=== PATIENT | male | born 1940 | race Caucasian/White ===

== ENCOUNTER 2020-06-23 10:52 | Inpatient (IN) ==
[2020-06-23] MEDS ORDERED: ADENOSINE IV SOLN 3 MG/ML 2 ML VIAL IV STA ×2 (11:18→12:29)
[2020-06-23] MEDS ORDERED: SODIUM CHLORIDE 0.9% 1000ML 1,000 ML IV SCH ×2 (11:30→15:18)
[2020-06-23] MEDS ORDERED: SODIUM CHLORIDE 0.9% 500 ML IV SCH (11:30)
[2020-06-23 11:57] LABS: iSTAT Creatinine 1.6 mg/dl (0.6-1.3); iSTAT Hemoglobin 18.7 g/dl (14.0-18.0); iSTAT Ionized Calcium 1.04 mmol/l (1.12-1.32); iSTAT Potassium 4.9 mmol/L (3.3-5.0)
[2020-06-23 12:07] LABS: Hematocrit (blood only) 43.2 % (42-52); Hemoglobin 14.6 g/dL (14.0-18.0); Immature Granulocytes # (auto) 0.09 K/uL (0.00-0.02); Immature Granulocytes % (auto) 0.6 %; Lymphocytes # (auto) 0.87 K/uL (1.2-3.4); Lymphocytes % (auto) 5.4 %; Mean Corpuscular Hemoglobin 31.7 pg (25-34); Mean Corpuscular Hgb Conc 33.8 g/dL (32-36); Mean Corpuscular Volume 93.9 fL (80-100); Mean Platelet Volume 10.4 fL (7.4-10.4); Monocytes # (auto) 1.14 K/uL (0.11-0.59); Monocytes % (auto) 7.1 %; Neutrophils # (auto) 13.95 K/uL (1.4-6.5); Neutrophils % (auto) 86.9 %; Platelet Count 149 K/uL (130-400); RDW Coefficient of Variation 14.8 % (11.5-14.5); RDW Standard Deviation 50.5 fL (36.4-46.3); White Blood Count 16.05 K/uL (4.8-10.8)
[2020-06-23] MEDS ORDERED: dilTIAZem HCl 5 MG/ML 5 ML VIAL IV STA ×2 (12:26→13:08)
[2020-06-23 12:27] LABS: Alanine Aminotransferase 31 U/L (12-78); Albumin Globulin Ratio 0.9 (0.9-2); Albumin Level 3.2 gm/dl (3.4-5.0); Alkaline Phosphatase 76 U/L (45-117); Aspartate Aminotransferase 34 U/L (15-37); BUN Creatinine Ratio 29.5 (10-20); Bilirubin,Total 1.1 mg/dl (0.2-1); Blood Urea Nitrogen 51 mg/dl (7-18); Calcium 8.8 mg/dl (8.5-10.1); Carbon Dioxide 32 mmol/L (21-32); Chloride 91 mmol/L (98-107); Creatine Kinase 238 U/L (39-308); Est GFR (African American) 42.3; Est GFR (Non-African American) 36.5; Globulin 3.4 gm/dl (2.5-4.0); Glucose 137 mg/dl (70-99); Magnesium 2.6 mg/dl (1.8-2.4); Potassium 4.3 mmol/L (3.5-5.1); Sodium 129 mmol/L (136-145); Total Protein 6.6 gm/dl (6.4-8.2)
[2020-06-23] MEDS ORDERED: OPTIRAY 320 125ml IV ONE (12:30)
[2020-06-23 12:37] LABS: Troponin I 0.188 ng/ml (0-0.045)
--- NOTE | 2020-06-23 12:40 | CT Scan Report ---
CT head/brain wo con CLINICAL HISTORY: Acute change in mental status COMPARISON STUDY: No previous studies for comparison. TECHNIQUE: Axial CT of the brain is performed from the vertex to the skull base. IV contrast was not administered for this examination. A dose lowering technique was utilized adhering to the principles of ALARA. CT DOSE: FINDINGS: No intra or extra-axial mass lesions are visualized. There is no CT evidence of acute cortical infarc tion. There is no evidence of midline shift. There is no acute hemorrhage. No calvarial fractures ar e visualized. There are bilateral moderately extensive matter hypodensities likely on a small vessel basis. There is no evidence of pathologic ventricular dilatation. There is no evidence of acute sinusitis Droplets of cavernous sinus air are likely iatrogenic. IMPRESSION: No acute intracranial findings ACT 112: Negative or not required by law. Electronically signed by: Ismael Gregorio M.D. 06/23/2020 12:39 PM
--- NOTE | 2020-06-23 12:46 | CT Scan Report ---
CT angio neck with con CLINICAL HISTORY: stroke COMPARISON STUDY: No previous studies for comparison. TECHNIQUE: CT angiography was performed from the aortic arch to the skull base. MIP imaging was perfo rmed. The patient was scanned in a dynamic helical fashion during intravenous administration of cc of Optiray 320. A dose lowering technique was utilized adhering to the principles of ALARA. CT DOSE: Technique: CT angiogram of the carotid and vertebral arteries was obtained using intravenous contrast and 3-D reconstruction. NASCET criteria was utilized. Findings: There are foci of venous gas, likely iatrogenic. There is moderate bilateral common carotid intimal thickening. Both internal carotids are somewhat di minutive. There is no evidence for hemodynamically significant stenosis. There is no evidence of occl usion. There is no evidence of dissection. The left vertebral artery is dominant. There is a distal r ight vertebral artery stenosis. IMPRESSION: 1. No evidence of hemodynamically significant carotid stenosis 2. Dominant left vertebral artery. Distal right vertebral artery stenosis. ACT 112: Negative or not required by law. Electronically signed by: Ismael Gregorio M.D. 06/23/2020 12:45 PM
--- NOTE | 2020-06-23 12:46 | CT Scan Report ---
CTA ANGIOGRAPHY OF THE HEAD CLINICAL HISTORY: Stroke. Altered mental status. COMPARISON STUDY: No previous studies for comparison. TECHNIQUE: Helical axial images of the head were obtained following uneventful intravenous administr ation of 120 cc of Optiray 320. Sagittal and coronal reconstructions were viewed as well as maximal i ntensity projections on an independent 3-D workstation. Automated exposure control was utilized for the study. A dose lowering technique was utilized adhering to the principles of ALARA. CT DOSE: 1321.17 mGy.cm FINDINGS: No acute intracranial hemorrhage, midline shift or mass effect is present. Basal cisterns a re patent. There are no extra-axial collections. Ventricular system is unremarkable. White matter hyp odensities likely reflect small vessel disease. Incidental note is made of venous gas. The bilateral M1, M2, A1 and A2 segments are patent. There is mild plaque within the bilateral cavernous carotids w ithout stenosis. No intraluminal thrombus is identified. There is no central vessel occlusion. The le ft vertebral artery is dominant and patent. There is moderate to severe stenosis of the intracranial portion of the right vertebral artery. Exam is mildly compromised by suboptimal vascular opacificatio n. Basilar artery is patent. Bilateral posterior cerebral arteries are likely patent. There is no int racranial aneurysm. IMPRESSION: 1. No central vessel occlusion. 2. Dominant, patent left vertebral artery. 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 3. Exam mildly compromised by suboptimal opacification. ACT 112: Negative or not required by law. Electronically signed by: Emanuel Ocasio M.D. 06/23/2020 12:45 PM
[2020-06-23] MEDS ORDERED: PIPERACILLIN/TAZOBACTAM 4.5 GM/120 ML BAG IV ONE (13:01)
[2020-06-23] MEDS ORDERED: PIPERACILL/TAZOBAC CONSULT ACTIVE PRN (13:01)
--- NOTE | 2020-06-23 13:06 | XRay Report ---
XR chest 1V portable HISTORY: weakness COMPARISON: None. FINDINGS: The lungs are clear. Cardiac silhouette is normal in size. No pleural effusions. No pneumot horax. IMPRESSION: No acute process. ACT 112: Negative or not required by law. Electronically signed by: Stephen Brennan M.D. 06/23/2020 1:05 PM
[2020-06-23] MEDS ORDERED: STAT IV Infusion **Titration per Protocol STA ×2 (13:08→22:29)
[2020-06-23] MEDS ORDERED: dilTIAZem HCL 125 MG in DEXTROSE 5% 100 ML IV SCH (13:15)
[2020-06-23] MEDS ORDERED: SODIUM CHLORIDE 0.9% 1000ML 500 ML IV ONE ×2 (14:19→16:28)
[2020-06-23] MEDS ORDERED: SODIUM CHLORIDE 0.9% 1000ML 1,000 ML IV ONE (14:22)
[2020-06-23] MEDS ORDERED: DIGOXIN 500 MCG/2 ML AMP IV ONE (14:22)
--- NOTE | 2020-06-23 15:12 | History & Physical Report ---
Date of Service June 23, 2020 Assessment & Plan (1) SIRS (systemic inflammatory response syndrome): (2) Acute metabolic encephalopathy: (3) Atrial flutter with rapid ventricular response: This is a 79-year-old male who has an unknown past medical history he does not follow with regular PCP who presents to ED with POA/granddaughter secondary to change in mental status and weakness for unknown duration. In ED patient was found to be in a wide-complex tachycardia with heart rates in the 160s. Initial EKG appeared to be SVT; however rhythm was resistant to adenosine 6 mg and adenosine 12 mg. He received a diltiazem bolus and started on Cardizem drip without much improvement in heart rate. He did receive 500 mL IVF. He also received Zosyn for SIRS. Lab abnormalities notable for leukocytosis 16.05k, H&H 14.6 and 43.2, sodium 129, BUN 51, creatinine 1.72, glucose 137, lactic acid 3.[address] negative for acute abnormality. Chest x-ray negative for acute abnormality. Head neck CTA reveal moderate stenosis of distal right vertebral artery. In ED he was found to have right upper extremity weakness with right pronator drift but otherwise no facial asymmetry or dysarthria. admit to PCU Consult cardiology - spoke to Dr. Graham continue Diltiazem gtt, give dose of digoxin - spoke to pharmacy, based on pt weight recommendation is for 250mcg split in 2 doses start heparin gtt (current [id number] 2 - although unknown if patient has any other underlying co morbidities given does not follow with PCP) obtain echocardiogram blood culture/urine culture pending Meets SIRS criteria 2/2 to tachycardia, elevated wbc - received IV zosyn in ED Start Rocephin 2g daily and doxycycline until infection ruled out continue IVF 80cc/hr (4) Stroke-like symptom: pt with R pronator drift, mental status change, difficulty with fine motor movement RUE CT head no acute abn - CTA head/neck Moderate to severe stenosis of the distal right vertebral artery obtain MRI when medically able and when heart rate under better control consult neuro, PT/OT/ST Lipid panel/A1C in a.m. stroke scale passed dysphagia screen in ED (5) AWAIS (acute kidney injury): cr 1.72, unknown baseline appears dry, received 1.5L in ED continue with IV hydration, monitor renal fxn, avoid nephrotoxic agents (6) Elevated troponin: Admitting 0.188, likely in setting of tachycardia cycle, obtain echocardiogram cardiology consulted, no ST T wave changes and no chest pain/sob on IV heparin for above (7) Lactic acidosis: LA on admission 3.5 possibly in setting of arrhythmia/AWAIS; however sepsis not entirely ruled out fluid resuscitated with 1.5 L, lactic acid currently pending Continue IV fluid hydration and will continue to cover with antibiotics until infection ruled out Treat arrhythmia as above (8) Hyponatremia: corrected Na 130, unknown chronicity likely in setting of acute dehydration repeat bmp @ 1900 received 1.5L of IVF in ED, continue NSS @ 80cc/hr (9) Hyperglycemia: Glucose 137, 158 no known hx of t2dm a1c in a.m. monitor accuchecks q6h for now - if consistently elevated will add coverage (10) DVT prophylaxis: IV Heparin Disposition: admit to PCU, case management consulted will likely need placement Follow up: Pt will need to establish with outpt PCP upon discharge Pt was seen and examined in collaboration with Dr. Mosquera, please see addendum History of Present Illness Chief Complaint: Change in mental status and weakness for unknown duration. Primary Care Provider: NO PCP This is a 79-year-old male who has an unknown past medical history he does not follow with regular PCP who presents to ED with POA/granddaughter secondary to change in mental status and weakness for unknown duration. Patient lives alone at home ever since has been for the past 10 years. History mostly obt ained from granddaughter as patient does have current underlying confusion. She typically takes patient out every 1 to 2 weeks for groceries. His last known well was 05/27. She states that recently they have been unable to get a hold of patient via phone, but was not overly alarmed as he occasionally does not answer the telephone secondary to frequent solicitor's. When unable to reach patient she did attempt to go see patient today and he would not answer the door. She went down to check his mailbox to make sure he did not slip and fall down there and found his mailbox full. She broke into the house and found him trying to get off the couch and unable to do so. He has lost a significant amount of weight since last seen and noticed groceries that they obtained on 05/27 with still not put away. He was brought to ED via EMS 2/ to change in mental status, increased weakness and inability to walk. Granddaughter unable to care for patient and feels he will likely need placed. She states she cannot remember the last time he saw and he does not take any medications. He has no known medical problems. He states he had smoked and drank alcohol in the past but denies any current tobacco/alcohol use. Typically at baseline he is able to ambulate without assist device. He currently denies any pain. ROS unreliable as patient is only alert to self. But he currently denies any pain, fever, chills, sweats, lightheadedness, dizziness, syncope, fall, chest pain, shortness with, cough, hemoptysis, nausea, vomiting, abdominal pain. He is unsure when he last ate or drink anything. He is unsure when his last bowel movement was. In ED patient was found to be in a wide-complex tachycardia with heart rates in the 160s. Initial EKG appeared to be SVT; however rhythm was resistant to adenosine 6 mg and adenosine 12 mg. He received a diltiazem bolus and started on Cardizem drip without much improvement in heart rate. He did receive 500 mL IVF. He also received Zosyn for SIRS. Lab abnormalities notable for leukocytosis 16.05k, H&H 14.6 and 43.2, sodium 129, BUN 51, creatinine 1.72, glucose 137, lactic acid 3.[address] negative for acute abnormality. Chest x-ray negative for acute abnormality. Head neck CTA reveal moderate stenosis of distal right vertebral artery. In ED he was found to have right upper extremity weakness with right pronator drift but otherwise no facial asymmetry or dysarthria. Allergies Allergy/AdvReac Type Severity Reaction Status Date / Time No Known Allergies Allergy Unverified 06/23/20 13:19 Home Medications Medication Instructions Recorded Confirmed Type No Known Home Medications 06/23/20 06/23/20 History Past Med/Surg History Medical History No significant past medical history Surgical History History of knee surgery left Family History Other Unknown family medical history Social History Smoking Status: Never smoker Hx Alcohol Use: No Hx Substance Use: No Preferred Language: Latvian Communication Ability: Effective [employer] Technical Director Required: No Beliefs That Will Affect Care: None marital status: / Current Living Situation: Alone Other Information That Helps Us Care for You: No Feels Safe at Home: Yes Safety Concerns: Feels Safe At This Time Assistive Devices: None Review of Systems Review of Systems: All systems reviewed & are unremarkable except as noted in HPI & below Physical Exam Physical Exam: Constitutional: Thin, cachectic, male, nontoxic appearing, answers questions appropriately however confused, alert to self only, vitals as above, NAD, sitting up in bed, pleasant Head: Normocephalic, Atraumatic Eyes: PERRL, conjunctivae normal, anicteric sclerae ENMT: external ear and nose normal, oropharynx normal dry mucous membrane Neck: trachea midline, no thyromegaly normal visual inspection Respiratory: normal respiratory effort, lungs clear to auscultation, no wheeze, rales, rhonchi. Normal insp/exp effort, no accessory muscle use Cardiovascular: Tachycardic rate, regular rhythm, no murmur, no edema Vessels: no JVD or carotid bruit Chest: normal inspection of chest but emaciated Abdomen: normal bowel sounds, soft, nontender, no hepatosplenomegaly Musculoskeletal: Clubbing of fingers, right upper extremity weakness with right pronator drift, no cyanosis, left upper extremity 4/5, right upper extremity 3/5, bilateral lower extremities 4/5 Skin: no rashes, warm and dry moderate turgor Neurologic: PERRL, EOMI, accommodation nl, no face palsy, no dysarthria, no dysphagia, right pronator drift, CN's II-XI intact bilaterally, difficulty with fine motor movement of right upper extremity, right-sided ataxia Psychiatric: A+O to self only, knew we are in hospital, but thought [place], unsure where he lives, was able to orient to month and year with assistance, eu thymic affect Lymphatic: no cervical or axillary lymphadenopathy : deferred Results & Data Results & Data ([facility]) Vital Signs (Past 12 Hours) Vital Signs Temp Pulse Pulse Resp BP BP Pulse Ox 06/23/20 14:47 162 H 109/93 96 06/23/20 14:35 162 H 18 108/89 98 06/23/20 14:26 162 H 20 98 06/23/20 14:24 162 H 20 117/85 98 06/23/20 14:20 163 H 18 117/68 98 06/23/20 14:02 167 H 14 109/70 06/23/20 13:45 162 H 15 118/72 100 06/23/20 13:36 162 H 131/99 99 06/23/20 13:30 160 H 17 131/99 100 06/23/20 13:22 161 H 18 128/95 99 06/23/20 12:33 158 H 116/93 06/23/20 12:32 158 H 18 116/93 06/23/20 11:53 98 06/23/20 11:45 165 H 109/90 06/23/20 11:16 166 H 21 109/90 06/23/20 10:58 36.8 C 84 20 115/85 98 Laboratory Results Short CBC 06/23/20 Range/Units 11:53 WBC 16.05 H (4.8-10.8) K/uL Hgb 14.6 (14.0-18.0) g/dL Hct 43.2 (42-52) % Plt Count 149 (130-400) K/uL BMP 06/23/20 11:53 Sodium 129 L Potassium 4.3 Chloride 91 L Carbon Dioxide 32 BUN 51 H Creatinine 1.72 H Glucose 137 H Calcium 8.8 Cardiac Enzymes 06/23/20 Range/Units 11:53 Total Creatine Kinase 238 (39-308) U/L Troponin I 0.188 H* (0-0.045) ng/ml Liver Function 06/23/20 Range/Units 11:53 Total Bilirubin 1.1 H (0.2-1) mg/dl AST 34 (15-37) U/L ALT 31 (12-78) U/L Alkaline Phosphatase 76 (45-117) U/L Albumin 3.2 L (3.4-5.0) gm/dl Diagnostic Findings Head CT: IMPRESSION: No acute intracranial findings Head/Neck CTA: IMPRESSION: 1. No central vessel occlusion. 2. Dominant, patent left vertebral artery. 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 3. Exam mildly compromised by suboptimal opacification. CXR: IMPRESSION: No acute process. Medications Administered Adenosine (Adenosine Iv Soln 3 Mg/Ml 2 Ml Vial) 6 mg IV NOW STA Stop: 06/23/20 11:19 Last Admin: 06/23/20 11:53 Dose: 6 mg Documented by: [id number] Adenosine (Adenosine Iv Soln 3 Mg/Ml 2 Ml Vial) 12 mg IV NOW STA Stop: 06/23/20 12:30 Last Admin: 06/23/20 11:56 Dose: 12 mg Documented by: [id number] Diltiazem HCl (Diltiazem Hcl 5 Mg/Ml 5 Ml Vial) 10 mg IV NOW STA Stop: 06/23/20 12:27 Last Admin: 06/23/20 12:34 Dose: 10 mg Documented by: [id number] Cosigned by: [id number] Diltiazem HCl (Diltiazem Hcl 5 Mg/Ml 5 Ml Vial) 10 mg IV NOW STA Stop: 06/23/20 13:09 Last Admin: 06/23/20 13:37 Dose: 10 mg Documented by: [id number] Cosigned by: [id number] Sodium Chloride (Nss) 500 mls @ 999 mls/hr IV .Q31M JACQUE Stop: 06/23/20 12:00 Last Infusion: 06/23/20 12:21 Dose: 0 mls/hr Documented by: [id number] Admin: 06/23/20 11:42 Dose: 999 mls/hr Documented by: [id number] Sodium Chloride (Nss 1000ml) 1,000 mls @ 125 mls/hr IV .Q8H JACQUE Stop: 06/23/20 19:29 Last Admin: 06/23/20 13:17 Dose: 125 mls/hr Documented by: [id number] Piperacillin Sod/Tazobactam Sod (Zosyn) 4.5 gm in 120 mls @ 240 mls/hr IV NOW ONE Stop: 06/23/20 13:30 Last Infusion: 06/23/20 14:03 Dose: 0 mls/hr Documented by: [id number] Admin: 06/23/20 13:17 Dose: 240 mls/hr Documented by: [id number] Diltiazem HCl 125 mg/ Dextrose 125 mls @ 5 mls/hr IV .Q24H JACQUE; Protocol Stop: 07/23/20 13:14 Last Admin: 06/23/20 13:39 Dose: 5 mg/hr, 5 mls/hr Documented by: [id number] Cosigned by: [id number] Ioversol (Optiray 320 125ml) 120 ml IV ONCE ONE Stop: 06/23/20 12:31 Last Admin: 06/23/20 12:31 Dose: 120 ml Documented by: [id number] Discontinued Medications Sodium Chloride (Nss 1000ml) 500 mls @ 999 mls/hr IV .Q31M ONE Stop: 06/23/20 14:49 Last Admin: 06/23/20 14:27 Dose: Not Given Documented by: [id number] ECG Rate (beats per minute): 165 Rhythm: other (wide complex tachycardia) Code Status & VTE Plan Code Status Discussed with ESTRELLITA Hartman DNR/DNI VTE Prophylaxis Plan VTE Prophylaxis will be ordered: Yes Supervising Physician Co-Signing Physician Notes Pt was seen and examined. Agreed with Kamala GREEN exam, assessment and plan. 79-year-old male who has not seen a physician for almost 20 yrs was brought to the ED for weakness and altered mental status. Family has been trying to reach him for the last few weeks, but he has not been able to answer his phone. Last known that he was well was on 05/27. Today grand daughter went to his place and found his mailbox was full. she broke into the house and found him on the couch confused and weak. At baseline daughter said that he was able to walk around without any assistance. Currently denies any chest pain, palpitation, SOB, dizziness, fever. In the ER he was found to be in Afib with RVR with rate in the 160's. Lab on admission showed elevated lactic acid, WBC, troponin. CT head showed no acute intracranial abnormality. On exam, pt is alert and awake, but confused, irregular heart rate, right sided upper extremity weakness. IV cardizem bolus, digoxin and adenosine given in the ER for the Afib, then started on Cardizem drip. Will continue cardizem drip and heparin drip for now. Will add low dose metoprolol tartrate q6h for now. Will add Lopressor IV prn for HR above 120. Elevated troponin mostly due to AFib with RVR. Will trend troponin and will get a resting echo in am. Elevated lactic acid and WBC. Infectious etiology unknown. Received IV Zosyn in the ER, will change abx to Rocephin and doxycycline. Blood cx collected in the ER pending. Low sodium and creatinine elevated on admission. Continue IVF hydration. Will continue monitor BMP. Will monitor closely in telemetry. MD Demetri
[2020-06-23] MEDS ORDERED: DIGOXIN 250 MCG in SYRINGE 9 ML IV ONE (15:15)
[2020-06-23] MEDS ORDERED: Heparin IV Standard *NO* Bolus IV ONE (15:18)
--- NOTE | 2020-06-23 15:43 | Emergency Department Note ---
History of Present Illness General Chief complaint: Weakness Stated complaint: WEAKNESS, FALLS, WEIGHT LOSS Source: family (Granddaughter) and RN notes reviewed Mode of arrival: ambulatory Limitations: no limitations History of Present Illness Provider complaint: Weakness, falls, weight loss Maximum Pain Intensity: 0 This patient is an 79-year-old male who presents to the emergency department with complaints of generalized weakness. His granddaughter states she normally hears from him once a week and they go to the grocery store. The last time they did this was May 27. She did not hear from him the week after and was unable to contact him. This week finally she went to his house and found all of the doors locked. She broke into the house and found him lying on the couch. He had to roll off of the couch and she noted him dragging his leg. He had multiple layers of clothing on but would not take any off. He had not eaten any of the groceries that they purchased at the end of May. Granddaughter took the patient to her house and has had them there for over 24 hours. He has not urinated that she knows of. He has had only several bites of food. She gave him a coffee cup today and he dropped it out of his right arm. He spilled coffee onto his socks, so she changed his socks. She notes wounds/ulcers on his left foot. She is very concerned because he has lost a significant amount of weight. Apparently the patient has been living alone for approximately 10 years since the of his . The patient has no complaints at this time. He states he has seen a doctor in the past but is unable to tell me when or who it may have been. Home Medications Medication Instructions Recorded Confirmed Type No Known Home Medications 06/23/20 06/23/20 History Allergies Allergy/AdvReac Type Severity Reaction Status Date / Time No Known Allergies Allergy Unverified 06/23/20 13:19 Past Med/Surg History Medical History No significant past medical history Surgical History History of knee surgery left Family History Other Unknown family medical history Social History (Reviewed 06/24/20 @ 12:34 by PARAG Cabrera Smoking Status: Never smoker Hx Alcohol Use: No Hx Substance Use: No Preferred Language: Korean Communication Ability: Impaired Technology Services Manager Required: No Beliefs That Will Affect Care: None marital status: / Current Living Situation: Alone Other Information That Helps Us Care for You: No Feels Safe at Home: Yes Safety Concerns: Feels Safe At This Time Assistive Devices: None Review of Systems See HPI for pertinent positives & negatives. and A total of 10 systems reviewed and were otherwise negative Physical Exam Vital Signs Vital Signs - 24 hr 06/23/20 10:58 06/23/20 11:16 06/23/20 11:45 Temperature 36.8 C Temperature Source Temporal Artery Scan Pulse Rate 84 166 H Pulse Rate [Apical] 165 H Pulse Rate from SpO2 Sensor Pulse Rhythm [Apical] Respiratory Rate 20 21 Respiratory Depth Normal Blood Pressure 115/85 109/90 Blood Pressure [Left Arm] 109/90 Blood Pressure Mean 95 94 Blood Pressure Mean [Left Arm] 96 Blood Pressure Position [Left Arm] Pulse Oximetry 98 Oxygen Delivery Method Room Air Sepsis Recent Fever Within 48 Hours No Sepsis New/Unexplained Change in Mental Status No Sepsis Action Taken by Nursing No Action Required 06/23/20 11:53 06/23/20 12:32 06/23/20 12:33 Temperature Temperature Source Pulse Rate 158 H Pulse Rate [Apical] 158 H Pulse Rate from SpO2 Sensor Pulse Rhythm [Apical] Regular Respiratory Rate 18 Respiratory Depth Blood Pressure 116/93 Blood Pressure [Left Arm] 116/93 Blood Pressure Mean 98 Blood Pressure Mean [Left Arm] 100 Blood Pressure Position [Left Arm] Lying Pulse Oximetry 98 Oxygen Delivery Method Room Air Sepsis Recent Fever Within 48 Hours Sepsis New/Unexplained Change in Mental Status Sepsis Action Taken by Nursing 06/23/20 13:22 06/23/20 13:30 06/23/20 13:36 Temperature Temperature Source Pulse Rate 161 H 160 H Pulse Rate [Apical] 162 H Pulse Rate from SpO2 Sensor 163 H 161 H Pulse Rhythm [Apical] Respiratory Rate 18 17 Respiratory Depth Blood Pressure 128/95 131/99 Blood Pressure [Left Arm] 131/99 Blood Pressure Mean 99 116 Blood Pressure Mean [Left Arm] 109 Blood Pressure Position [Left Arm] Pulse Oximetry 99 100 99 Oxygen Delivery Method Room Air Sepsis Recent Fever Within 48 Hours Sepsis New/Unexplained Change in Mental Status Sepsis Action Taken by Nursing 06/23/20 13:45 06/23/20 14:02 06/23/20 14:20 Temperature Temperature Source Pulse Rate 162 H 167 H 163 H Pulse Rate [Apical] Pulse Rate from SpO2 Sensor 162 H 160 H Pulse Rhythm [Apical] Respiratory Rate 15 14 18 Respiratory Depth Blood Pressure 118/72 109/70 117/68 Blood Pressure [Left Arm] Blood Pressure Mean 83 80 103 Blood Pressure Mean [Left Arm] Blood Pressure Position [Left Arm] Pulse Oximetry 100 98 Oxygen Delivery Method Sepsis Recent Fever Within 48 Hours Sepsis New/Unexplained Change in Mental Status Sepsis Action Taken by Nursing 06/23/20 14:24 06/23/20 14:26 06/23/20 14:35 Temperature Temperature Source Pulse Rate 162 H 162 H Pulse Rate [Apical] 162 H Pulse Rate from SpO2 Sensor 162 H 163 H Pulse Rhythm [Apical] Respiratory Rate 20 20 18 Respiratory Depth Blood Pressure 117/85 Blood Pressure [Left Arm] 108/89 Blood Pressure Mean 91 Blood Pressure Mean [Left Arm] 95 Blood Pressure Position [Left Arm] Pulse Oximetry 98 98 98 Oxygen Delivery Method Room Air Sepsis Recent Fever Within 48 Hours Sepsis New/Unexplained Change in Mental Status Sepsis Action Taken by Nursing 06/23/20 14:47 06/23/20 15:20 Temperature Temperature Source Pulse Rate 165 H Pulse Rate [Apical] 162 H Pulse Rate from SpO2 Sensor Pulse Rhythm [Apical] Respiratory Rate Respiratory Depth Blood Pressure Blood Pressure [Left Arm] 109/93 Blood Pressure Mean Blood Pressure Mean [Left Arm] 98 Blood Pressure Position [Left Arm] Pulse Oximetry 96 Oxygen Delivery Method Room Air Sepsis Recent Fever Within 48 Hours Sepsis New/Unexplained Change in Mental Status Sepsis Action Taken by Nursing Vital signs reviewed. General: Thin, frail, chronically ill-appearing 79-year-old male in no significant distress. HEENT: No scleral icterus or conjunctival injection, PERRLA, neck supple. Dry mucous membranes Cardiovascular: Markedly tachycardic, regular, no extra sounds Pulmonary: Clear to auscultation bilaterally, normal work of breathing. Abdomen: Soft, thin, nontender, nondistended, positive bowel sounds. Musculoskeletal: Atraumatic, edema to the bilateral feet appreciated. Neurologic: Patient awake alert and answers questions although minimally verbal. Cranial nerves II through XII are grossly intact. Follows simple commands. Positive right upper extremity pronator drift. Significant ataxia with the right upper extremity. 2-3/5 strength of the right upper extremity. 4/5 strength of the bilateral lower extremities. Equal unit manager strength to the hands bilaterally. Skin: Warm, dry, blisters with serous fluid noted to the left foot Course Administered Medications Aspirin (Aspirin 81 Mg Ectab) [facility] [place] Stop: 07/25/20 13:14 Last Admin: 06/25/20 14:21 Dose: 81 mg Documented by: [id number] Doxycycline Hyclate (Doxycycline Hyclate 100 Mg Cap) 100 mg PO BID [facility]; Protocol Stop: 06/25/20 20:59 Last Admin: 06/25/20 08:43 Dose: 100 mg Documented by: [id number] Admin: 06/24/20 22:20 Dose: 100 mg Documented by: [id number] Admin: 06/24/20 08:54 Dose: 100 mg Documented by: [id number] Admin: 06/23/20 20:43 Dose: 100 mg Documented by: [id number] Folic Acid (Folic Acid 1 Mg Tab) 1 mg PO [facility] Stop: 07/25/20 09:44 Last Admin: 06/25/20 10:16 Dose: 1 mg Documented by: [id number] Heparin Sodium/Dextrose (Heparin Sodium/Dextrose) 25,000 units in 500 mls @ 12 mls/hr IV .Q24H [facility]; Protocol Stop: 07/23/20 15:17 Last Titration: 06/25/20 13:18 Dose: 550 units/hr, 11 mls/hr Documented by: [id number] Cosigned by: [id number] Titration: 06/25/20 07:09 Dose: 550 units/hr, 11 mls/hr Documented by: [id number] Cosigned by: [id number] Titration: 06/25/20 06:32 Dose: 550 units/hr, 11 mls/hr Documented by: [id number] Cosigned by: [id number] Titration: 06/24/20 23:31 Dose: 600 units/hr, 12 mls/hr Documented by: [id number] Cosigned by: [id number] Titration: 06/24/20 23:23 Dose: 650 units/hr, 13 mls/hr Documented by: [id number] Cosigned by: [id number] Admin: 06/24/20 22:20 Dose: 650 units/hr, 13 mls/hr Documented by: [id number] Cosigned by: [id number] Titration: 06/24/20 22:20 Dose: 650 units/hr, 13 mls/hr Documented by: [id number] Cosigned by: [id number] Titration: 06/24/20 19:07 Dose: 650 units/hr, 13 mls/hr Documented by: [id number] Cosigned by: [id number] Admin: 06/24/20 16:57 Dose: Not Given Documented by: [id number] Titration: 06/24/20 16:45 Dose: 650 units/hr, 13 mls/hr Documented by: [id number] Cosigned by: [id number] Titration: 06/24/20 09:07 Dose: 700 units/hr, 14 mls/hr Documented by: [id number] Cosigned by: [id number] Titration: 06/24/20 07:07 Dose: 0 units/hr, 0 mls/hr Documented by: [id number] Cosigned by: [id number] Titration: 06/24/20 07:01 Dose: 900 units/hr, 18 mls/hr Documented by: [id number] Cosigned by: [id number] Titration: 06/24/20 00:55 Dose: 900 units/hr, 18 mls/hr Documented by: [id number] Cosigned by: [id number] Titration: 06/23/20 23:55 Dose: 0 units/hr, 0 mls/hr Documented by: [id number] Cosigned by: [id number] Titration: 06/23/20 18:53 Dose: 1,000 units/hr, 20 mls/hr Documented by: [id number] Cosigned by: [id number] Admin: 06/23/20 16:40 Dose: 1,000 units/hr, 20 mls/hr Documented by: [id number] Cosigned by: [id number] Ceftriaxone Sodium 2,000 mg/ (Dextrose) 70 mls @ 100 mls/hr IV Q24H [facility]; Protocol Stop: 06/25/20 18:30 Last Infusion: 06/24/20 18:56 Dose: 0 mls/hr Documented by: [id number] Admin: 06/24/20 18:05 Dose: 100 mls/hr Documented by: [id number] Infusion: 06/23/20 22:08 Dose: 0 mls/hr Documented by: [id number] Admin: 06/23/20 19:50 Dose: 100 mls/hr Documented by: [id number] Amiodarone HCl/Dextrose (Nexterone / D5w) 360 mg in 200 mls @ 16.667 mls/hr IV .Q12H [facility] Stop: 07/24/20 04:59 Last Infusion: 06/25/20 07:09 Dose: 0.5 mg/min, 16.7 mls/hr Documented by: [id number] Cosigned by: [id number] Admin: 06/25/20 05:07 Dose: 0.5 mg/min, 16.7 mls/hr Documented by: [id number] Cosigned by: [id number] Infusion: 06/25/20 05:05 Dose: 0.5 mg/min, 16.7 mls/hr Documented by: [id number] Cosigned by: [id number] Infusion: 06/24/20 19:07 Dose: 0.5 mg/min, 16.7 mls/hr Documented by: [id number] Cosigned by: [id number] Admin: 06/24/20 16:59 Dose: 0.5 mg/min, 16.7 mls/hr Documented by: [id number] Cosigned by: [id number] Infusion: 06/24/20 16:54 Dose: 0.5 mg/min, 16.7 mls/hr Documented by: [id number] Cosigned by: [id number] Admin: 06/24/20 04:55 Dose: 0.5 mg/min, 16.7 mls/hr Documented by: [id number] Cosigned by: [id number] Thiamine HCl (Thiamine Hcl 100 Mg Tab) 100 mg PO QAM [facility] Stop: 07/24/20 19:14 Last Admin: 06/25/20 08:44 Dose: 100 mg Documented by: [id number] Admin: 06/24/20 22:20 Dose: 100 mg Documented by: [id number] Discontinued Medications Adenosine (Adenosine Iv Soln 3 Mg/Ml 2 Ml Vial) 6 mg IV NOW STA Stop: 06/23/20 11:19 Last Admin: 06/23/20 11:53 Dose: 6 mg Documented by: [id number] Adenosine (Adenosine Iv Soln 3 Mg/Ml 2 Ml Vial) 12 mg IV NOW STA Stop: 06/23/20 12:30 Last Admin: 06/23/20 11:56 Dose: 12 mg Documented by: [id number] Diltiazem HCl (Diltiazem Hcl 5 Mg/Ml 5 Ml Vial) 10 mg IV NOW STA Stop: 06/23/20 12:27 Last Admin: 06/23/20 12:34 Dose: 10 mg Documented by: [id number] Cosigned by: [id number] Diltiazem HCl (Diltiazem Hcl 5 Mg/Ml 5 Ml Vial) 10 mg IV NOW STA Stop: 06/23/20 13:09 Last Admin: 06/23/20 13:37 Dose: 10 mg Documented by: [id number] Cosigned by: [id number] Sodium Chloride (Nss) 500 mls @ 999 mls/hr IV .Q31M [facility] Stop: 06/23/20 12:00 Last Infusion: 06/23/20 12:21 Dose: 0 mls/hr Documented by: [id number] Admin: 06/23/20 11:42 Dose: 999 mls/hr Documented by: [id number] Sodium Chloride (Nss 1000ml) 1,000 mls @ 125 mls/hr IV .Q8H [facility] Stop: 06/23/20 19:29 Last Infusion: 06/23/20 16:58 Dose: 0 mls/hr Documented by: [id number] Admin: 06/23/20 13:17 Dose: 125 mls/hr Documented by: [id number] Piperacillin Sod/Tazobactam Sod (Zosyn) 4.5 gm in 120 mls @ 240 mls/hr IV NOW ONE Stop: 06/23/20 13:30 Last Infusion: 06/23/20 14:03 Dose: 0 mls/hr Documented by: [id number] Admin: 06/23/20 13:17 Dose: 240 mls/hr Documented by: [id number] Diltiazem HCl 125 mg/ Dextrose 125 mls @ 5 mls/hr IV .Q24H [facility]; Protocol Stop: 07/23/20 13:14 Last Titration: 06/24/20 22:28 Dose: 0 mg/hr, 0 mls/hr Documented by: [id number] Cosigned by: [id number] Titration: 06/23/20 22:42 Dose: 0 mg/hr, 0 mls/hr Documented by: [id number] Cosigned by: [id number] Titration: 06/23/20 18:52 Dose: 15 mg/hr, 15 mls/hr Documented by: [id number] Cosigned by: [id number] Titration: 06/23/20 18:38 Dose: 15 mg/hr, 15 mls/hr Documented by: [id number] Cosigned by: [id number] Titration: 06/23/20 16:59 Dose: 10 mg/hr, 10 mls/hr Documented by: [id number] Cosigned by: [id number] Titration: 06/23/20 15:14 Dose: 7.5 mg/hr, 7.5 mls/hr Documented by: [id number] Cosigned by: [id number] Admin: 06/23/20 13:39 Dose: 5 mg/hr, 5 mls/hr Documented by: [id number] Cosigned by: [id number] Sodium Chloride (Nss 1000ml) 500 mls @ 999 mls/hr IV .Q31M ONE Stop: 06/23/20 14:49 Last Admin: 06/23/20 14:27 Dose: Not Given Documented by: [id number] Sodium Chloride (Nss 1000ml) 1,000 mls @ 999 mls/hr IV .Q1H1M ONE Stop: 06/23/20 15:22 Last Infusion: 06/23/20 16:21 Dose: 0 mls/hr Documented by: [id number] Admin: 06/23/20 15:13 Dose: 999 mls/hr Documented by: [id number] Digoxin 250 mcg/ Syringe 10 mls @ 2 mls/min IV NOW ONE Stop: 06/23/20 15:19 Last Admin: 06/23/20 15:20 Dose: 2 mls/min Documented by: [id number] Sodium Chloride (Nss 1000ml) 1,000 mls @ 80 mls/hr IV .[id number] [facility] Stop: 07/23/20 15:17 Last Infusion: 06/23/20 22:56 Dose: 0 mls/hr Documented by: [id number] Admin: 06/23/20 15:58 Dose: 80 mls/hr Documented by: [id number] Sodium Chloride (Nss 1000ml) 500 mls @ 999 mls/hr IV .Q31M ONE Stop: 06/23/20 16:58 Last Infusion: 06/23/20 17:23 Dose: 0 mls/hr Documented by: [id number] Admin: 06/23/20 16:48 Dose: 999 mls/hr Documented by: [id number] Amiodarone HCl/Dextrose (Nexterone / D5w) 150 mg in 100 mls @ 600 mls/hr IV NOW STA Stop: 06/23/20 22:38 Last Infusion: 12/17/20 23:36 Dose: 0 mls/hr Documented by: [id number] Cosigned by: [id number] Admin: 06/23/20 23:04 Dose: 600 mls/hr Documented by: [id number] Cosigned by: [id number] Amiodarone HCl/Dextrose (Nexterone / D5w) 360 mg in 200 mls @ 33.333 mls/hr IV ONE ONE Stop: 06/24/20 04:59 Last Infusion: 06/24/20 05:55 Dose: 0 mls/hr Documented by: [id number] Cosigned by: [id number] Admin: 06/23/20 23:22 Dose: 33.3 mls/hr Documented by: [id number] Cosigned by: [id number] Lactated Ringer's (Lr) 1,000 mls @ 500 mls/hr IV .Q2H ONE Stop: 06/24/20 00:59 Last Infusion: 06/24/20 02:34 Dose: 0 mls/hr Documented by: [id number] Admin: 06/23/20 23:03 Dose: 500 mls/hr Documented by: [id number] Lactated Ringer's (Lr) 1,000 mls @ 200 mls/hr IV .Q5H ONE Stop: 06/24/20 05:56 Last Infusion: 06/24/20 07:34 Dose: 0 mls/hr Documented by: [id number] Admin: 06/24/20 01:59 Dose: 200 mls/hr Documented by: [id number] Lactated Ringer's (Lr) 1,000 mls @ 80 mls/hr IV .[id number] [facility] Stop: 07/24/20 05:59 Last Infusion: 06/24/20 19:38 Dose: 0 mls/hr Documented by: [id number] Admin: 06/24/20 19:37 Dose: Not Given Documented by: [id number] Admin: 06/24/20 07:32 Dose: 80 mls/hr Documented by: [id number] Digoxin 250 mcg/ Syringe 10 mls @ 2 mls/min IV ONE ONE Stop: 06/24/20 04:34 Last Admin: 06/24/20 04:52 Dose: 2 mls/min Documented by: [id number] Digoxin 250 mcg/ Syringe 10 mls @ 2 mls/min IV ONE ONE Stop: 06/24/20 05:49 Last Admin: 06/24/20 06:03 Dose: 2 mls/min Documented by: [id number] Ioversol (Optiray 320 125ml) 120 ml IV ONCE ONE Stop: 06/23/20 12:31 Last Admin: 06/23/20 12:31 Dose: 120 ml Documented by: [id number] Metoprolol Tartrate (Metoprolol Tartrate 25 Mg Tab) 12.5 mg PO Q6H [facility] Stop: 07/23/20 19:59 Last Admin: 06/23/20 20:44 Dose: 12.5 mg Documented by: [id number] Metoprolol Tartrate (Metoprolol Tartrate 1 Mg/Ml Vial) 2.5 mg IV Q6 [facility] Stop: 07/24/20 12:29 Last Admin: 06/24/20 13:00 Dose: 2.5 mg Documented by: [id number] Metoprolol Tartrate (Metoprolol Tartrate 1 Mg/Ml Vial) 5 mg IV Q6 [facility] Stop: 07/24/20 17:59 Last Admin: 06/25/20 12:23 Dose: 5 mg Documented by: [id number] Admin: 06/25/20 05:56 Dose: 5 mg Documented by: [id number] Admin: 06/25/20 01:16 Dose: 5 mg Documented by: [id number] Admin: 06/24/20 18:01 Dose: 5 mg Documented by: [id number] Potassium Chloride (Potassium Chloride Crtab 20 Meq Tabcr) 20 meq PO ONE ONE Stop: 06/23/20 23:01 Last Admin: 06/23/20 23:21 Dose: 20 meq Documented by: [id number] Critical Care Time Critical Care Time: Yes Total Critical Care Time: 60 I have personally spent greater than 60 minutes of critical care time in the direct management of this patient. This includes bedside care, interpretation of diagnostic studies, and testing, discussion with consultants, patient, and family members, and other required patient management activities. This 60 minutes is in excess of all separately billable procedures. Medical Decision Making Differential Diagnosis Infection, dehydration, metabolic abnormality, hypo/hyperglycemia, electrolyte disturbance, anemia, hypoxia, cardiac sources, intracerebral event, toxicologic, neurologic, as well as other pathologies. Medical Records Attestation: I reviewed the patient's medical records. Home Medications Current Medication List: was personally reviewed by me Laboratory Data Attestation: I reviewed the patient's lab results. Result diagrams: 06/25/20 05:34 06/25/20 05:34 Lab Results 06/23/20 06/23/20 06/23/20 Range/Units 11:33 11:53 11:53 WBC 16.05 H (4.8-10.8) K/uL RBC 4.60 L (4.7-6.1) M/uL Hgb 14.6 (14.0-18.0) g/dL POC Hgb 18.7 H (14.0-18.0) g/dl Hct 43.2 (42-52) % POC Hct 55 H (42-52) % MCV 93.9 (80-100) fL MCH 31.7 (25-34) pg MCHC 33.8 (32-36) g/dL RDW Std Deviation 50.5 H (36.4-46.3) fL RDW Coeff of Iron 14.8 H (11.5-14.5) % Plt Count 149 (130-400) K/uL MPV 10.4 (7.4-10.4) fL Immature Gran % (Auto) 0.6 % Neut % (Auto) 86.9 % Lymph % (Auto) 5.4 % Sutter % (Auto) 7.1 % Eos % (Auto) 0.0 % Baso % (Auto) 0.0 % Neut # (Auto) 13.95 H (1.4-6.5) K/uL Lymph # (Auto) 0.87 L (1.2-3.4) K/uL Sutter # (Auto) 1.14 H (0.11-0.59) K/uL Eos # (Auto) 0.00 (0-0.5) K/uL Baso # (Auto) 0.00 (0-0.2) K/uL Immature Gran # (Auto) 0.09 H (0.00-0.02) K/uL APTT (21.0-31.0) Seconds PTT Ratio POC Sodium 128 L (135-144) mmol/L Sodium (136-145) mmol/L POC Potassium 4.9 (3.3-5.0) mmol/L Potassium (3.5-5.1) mmol/L POC Chloride 89 L (101-112) mmol/L Chloride (98-107) mmol/L Carbon Dioxide (21-32) mmol/L POC Total CO2 33 H (24-31) mmol/L Anion Gap (3-11) POC Anion Gap 12.0 L (16-25) mmol/L POC BUN 59 H (7-18) mg/dl BUN (7-18) mg/dl Creatinine (0.6-1.4) mg/dl POC Creatinine 1.6 H (0.6-1.3) mg/dl Est Cr Clr Drug Dosing Est GFR ( Amer) Est GFR (Non-Af Amer) BUN/Creatinine Ratio (10-20) Glucose (70-99) mg/dl POC Glucose (other) 158 H (70-99) mg/dl Lactate (0.4-2.0) mmol/L Calcium (8.5-10.1) mg/dl POC Ioniz Calcium Dino 1.04 L (1.12-1.32) mmol/l Magnesium (1.8-2.4) mg/dl Total Bilirubin (0.2-1) mg/dl AST (15-37) U/L ALT (12-78) U/L Alkaline Phosphatase (45-117) U/L Total Creatine Kinase (39-308) U/L Troponin I (0-0.045) ng/ml Total Protein (6.4-8.2) gm/dl Albumin (3.4-5.0) gm/dl Globulin (2.5-4.0) gm/dl Albumin/Globulin Ratio (0.9-2) Procalcitonin (0-0.5) ng/ml TSH (0.300-4.500) uIu/ml SARS-CoV-2 Ag (Rapid) (Negative) Blood Type O Positive Antibody Screen NEGATIVE 06/23/20 06/23/20 06/23/20 Range/Units 11:53 11:53 11:59 WBC (4.8-10.8) K/uL RBC (4.7-6.1) M/uL Hgb (14.0-18.0) g/dL POC Hgb (14.0-18.0) g/dl Hct (42-52) % POC Hct (42-52) % MCV (80-100) fL MCH (25-34) pg MCHC (32-36) g/dL RDW Std Deviation (36.4-46.3) fL RDW Coeff of Iron (11.5-14.5) % Plt Count (130-400) K/uL MPV (7.4-10.4) fL Immature Gran % (Auto) % Neut % (Auto) % Lymph % (Auto) % Sutter % (Auto) % Eos % (Auto) % Baso % (Auto) % Neut # (Auto) (1.4-6.5) K/uL Lymph # (Auto) (1.2-3.4) K/uL Sutter # (Auto) (0.11-0.59) K/uL Eos # (Auto) (0-0.5) K/uL Baso # (Auto) (0-0.2) K/uL Immature Gran # (Auto) (0.00-0.02) K/uL APTT (21.0-31.0) Seconds PTT Ratio POC Sodium (135-144) mmol/L Sodium 129 L (136-145) mmol/L POC Potassium (3.3-5.0) mmol/L Potassium 4.3 (3.5-5.1) mmol/L POC Chloride (101-112) mmol/L Chloride 91 L (98-107) mmol/L Carbon Dioxide 32 (21-32) mmol/L POC Total CO2 (24-31) mmol/L Anion Gap 6.0 (3-11) POC Anion Gap (16-25) mmol/L POC BUN (7-18) mg/dl BUN 51 H (7-18) mg/dl Creatinine 1.72 H (0.6-1.4) mg/dl POC Creatinine (0.6-1.3) mg/dl Est Cr Clr Drug Dosing Not Reportable Est GFR ( Amer) 42.3 Est GFR (Non-Af Amer) 36.5 BUN/Creatinine Ratio 29.5 H (10-20) Glucose 137 H (70-99) mg/dl POC Glucose (other) (70-99) mg/dl Lactate 3.5 H* (0.4-2.0) mmol/L Calcium 8.8 (8.5-10.1) mg/dl POC Ioniz Calcium Dino (1.12-1.32) mmol/l Magnesium 2.6 H (1.8-2.4) mg/dl Total Bilirubin 1.1 H (0.2-1) mg/dl AST 34 (15-37) U/L ALT 31 (12-78) U/L Alkaline Phosphatase 76 (45-117) U/L Total Creatine Kinase 238 (39-308) U/L Troponin I 0.188 H* (0-0.045) ng/ml Total Protein 6.6 (6.4-8.2) gm/dl Albumin 3.2 L (3.4-5.0) gm/dl Globulin 3.4 (2.5-4.0) gm/dl Albumin/Globulin Ratio 0.9 (0.9-2) Procalcitonin 0.15 (0-0.5) ng/ml TSH 3.030 (0.300-4.500) uIu/ml SARS-CoV-2 Ag (Rapid) (Negative) Blood Type Antibody Screen 06/23/20 06/23/20 Range/Units 11:59 13:30 WBC (4.8-10.8) K/uL RBC (4.7-6.1) M/uL Hgb (14.0-18.0) g/dL POC Hgb (14.0-18.0) g/dl Hct (42-52) % POC Hct (42-52) % MCV (80-100) fL MCH (25-34) pg MCHC (32-36) g/dL RDW Std Deviation (36.4-46.3) fL RDW Coeff of Iron (11.5-14.5) % Plt Count (130-400) K/uL MPV (7.4-10.4) fL Immature Gran % (Auto) % Neut % (Auto) % Lymph % (Auto) % Sutter % (Auto) % Eos % (Auto) % Baso % (Auto) % Neut # (Auto) (1.4-6.5) K/uL Lymph # (Auto) (1.2-3.4) K/uL Sutter # (Auto) (0.11-0.59) K/uL Eos # (Auto) (0-0.5) K/uL Baso # (Auto) (0-0.2) K/uL Immature Gran # (Auto) (0.00-0.02) K/uL APTT 32.5 H (21.0-31.0) Seconds PTT Ratio 1.2 POC Sodium (135-144) mmol/L Sodium (136-145) mmol/L POC Potassium (3.3-5.0) mmol/L Potassium (3.5-5.1) mmol/L POC Chloride (101-112) mmol/L Chloride (98-107) mmol/L Carbon Dioxide (21-32) mmol/L POC Total CO2 (24-31) mmol/L Anion Gap (3-11) POC Anion Gap (16-25) mmol/L POC BUN (7-18) mg/dl BUN (7-18) mg/dl Creatinine (0.6-1.4) mg/dl POC Creatinine (0.6-1.3) mg/dl Est Cr Clr Drug Dosing Est GFR ( Amer) Est GFR (Non-Af Amer) BUN/Creatinine Ratio (10-20) Glucose (70-99) mg/dl POC Glucose (other) (70-99) mg/dl Lactate (0.4-2.0) mmol/L Calcium (8.5-10.1) mg/dl POC Ioniz Calcium Dino (1.12-1.32) mmol/l Magnesium (1.8-2.4) mg/dl Total Bilirubin (0.2-1) mg/dl AST (15-37) U/L ALT (12-78) U/L Alkaline Phosphatase (45-117) U/L Total Creatine Kinase (39-308) U/L Troponin I (0-0.045) ng/ml Total Protein (6.4-8.2) gm/dl Albumin (3.4-5.0) gm/dl Globulin (2.5-4.0) gm/dl Albumin/Globulin Ratio (0.9-2) Procalcitonin (0-0.5) ng/ml TSH (0.300-4.500) uIu/ml SARS-CoV-2 Ag (Rapid) Negative (Negative) Blood Type Antibody Screen Imaging Data Radiologist's Impression: XR chest 1V portable HISTORY: weakness COMPARISON: None. FINDINGS: The lungs are clear. Cardiac silhouette is normal in size. No pleural effusions. No pneumothorax. IMPRESSION: No acute process. ACT 112: Negative or not required by law. Electronically signed by: Stephen Brennan M.D. 06/23/2020 1:05 PM Dictated: 06/23/20 1303Transcribed: 06/23/[address] head/brain wo con CLINICAL HISTORY: Acute change in mental status COMPARISON STUDY: No previous studies for comparison. TECHNIQUE: Axial CT of the brain is performed from the vertex to the skull base. IV contrast was not administered for this examination. A dose lowering technique was utilized adhering to the principles of ALARA. CT DOSE: FINDINGS: No intra or extra-axial mass lesions are visualized. There is no CT evidence of acute cortical infarction. There is no evidence of midline shift. There is no acute hemorrhage. No calvarial fractures are visualized. There are bilateral moderately extensive matter hypodensities likely on a small vessel basis. There is no evidence of pathologic ventricular dilatation. There is no evidence of acute sinusitis Droplets of cavernous sinus air are likely iatrogenic. IMPRESSION: No acute intracranial findings ACT 112: Negative or not required by law. Electronically signed by: Ismael Gregorio M.D. 06/23/2020 12:39 PM Dictated: 06/23/20 1237Transcribed: 06/23/20 1237 CTA ANGIOGRAPHY OF THE HEAD CLINICAL HISTORY: Stroke. Altered mental status. COMPARISON STUDY: No previous studies for comparison. TECHNIQUE: Helical axial images of the head were obtained following uneventful intravenous administration of 120 cc of Optiray 320. Sagittal and coronal reconstructions were viewed as well as maximal intensity projections on an independent 3-D workstation. Automated exposure control was utilized for the study. A dose lowering technique was utilized adhering to the principles of ALARA. CT DOSE: 1321.17 mGy.cm FINDINGS: No acute intracranial hemorrhage, midline shift or mass effect is present. Basal cisterns are patent. There are no extra-axial collections. Ventricular system is unremarkable. White matter hypodensities likely reflect small vessel disease. Incidental note is made of venous gas. The bilateral M1, M2, A1 and A2 segments are patent. There is mild plaque within the bilateral cavernous carotids without stenosis. No intraluminal thrombus is identified. There is no central vessel occlusion. The left vertebral artery is dominant and patent. There is moderate to severe stenosis of the intracranial portion of the right vertebral artery. Exam is mildly compromised by suboptimal vascular opacification. Basilar artery is patent. Bilateral posterior cerebral arteries are likely patent. There is no intracranial aneurysm. IMPRESSION: 1. No central vessel occlusion. 2. Dominant, patent left vertebral artery. 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 3. Exam mildly compromised by suboptimal opacification. ACT 112: Negative or not required by law. Electronically signed by: Emanuel Ocasio M.D. 06/23/2020 12:45 PM Dictated: 06/23/20 1237Transcribed: 06/23/[address] angio neck with con CLINICAL HISTORY: stroke COMPARISON STUDY: No previous studies for comparison. TECHNIQUE: CT angiography was performed from the aortic arch to the skull base. MIP imaging was performed. The patient was scanned in a dynamic helical fashion during intravenous administration of cc of Optiray 320. A dose lowering technique was utilized adhering to the principles of ALARA. CT DOSE: Technique: CT angiogram of the carotid and vertebral arteries was obtained using intravenous contrast and 3-D reconstruction. NASCET criteria was utilized. Findings: There are foci of venous gas, likely iatrogenic. There is moderate bilateral common carotid intimal thickening. Both internal carotids are somewhat diminutive. There is no evidence for hemodynamically significant stenosis. There is no evidence of occlusion. There is no evidence of dissection. The left vertebral artery is dominant. There is a distal right vertebral artery stenosis. IMPRESSION: 1. No evidence of hemodynamically significant carotid stenosis 2. Dominant left vertebral artery. Distal right vertebral artery stenosis. ACT 112: Negative or not required by law. Electronically signed by: Ismael Gregorio M.D. 06/23/2020 12:45 PM Dictated: 06/23/20 1240Transcribed: 06/23/20 1240 ECG Data Attestation: I personally reviewed and interpreted this ECG as follows: Indication: + tachycardia Rate (beats per minute): 165 Rhythm: + atrial flutter (2:1 conduction) and + other ECG Intervals/blocks: + IVCD ECG [place]: + Normal ECG ST segments: + Nonspecific ST abnormalities and + repolarization abnormalities ECG Findings: + Q waves (Anterior); no PACs and no PVCs Comparison ECG Date: no prior available Blood Pressure Blood Pressure Findings: Normal blood pressure Blood Pressure Disposition: did not require urgent referral MDM Narrative This patient was evaluated and appeared to be in no significant distress. IV access was obtained and laboratory work was drawn. Patient was placed on the classroom monitor and noted to be tachycardic. Rate is 165 bpm. IV access was difficult to obtain. Nursing staff was able to obtain a 20-gauge in the hand. An EJ was placed by myself in the right side of the neck without difficulty. Blood was drawn. The patient was given 6 mg of adenosine without any change in rhythm whatsoever. A second dose was given at 12 mg, again without any change in rhythm. IV fluids were continued. EKG was more convincing for a 2-1 conduction and rapid atrial flutter. Patient was given Cardizem 10 mg IV. This did temporarily slowed his rate to 150 bpm. Patient was initiated on a Cardizem drip with a second bolus of 10 mg. I did discuss my findings with the patient and his daughter. Head CT with angiograms of the head and neck were performed and there was no evidence of acute territorial infarct. The findings of pronator drift and ataxia in the right upper extremity where difficult to explain. Patient's lactic acid was elevated, troponin was slightly elevated, likely a stress mediated reaction. Patient was given Zosyn 4.5 g IV. IV fluids were continued. Patient's case was discussed with the hospitalist service who will evaluate the patient for admission and further management. Impression & Plan Elevated troponin, Atrial flutter with rapid ventricular response, AWAIS (acute kidney injury), Stroke-like symptom, Elevated lactic acid level Discharge Plan Visit Data Chief Complaint: Weakness Stated Complaint: WEAKNESS, FALLS, WEIGHT LOSS ED Provider: Mirian Tolentino Discharge Problem: Elevated troponin, Atrial flutter with rapid ventricular response, AWAIS (acute kidney injury), Stroke-like symptom, Elevated lactic acid level Patient Disposition: Admitted As Inpatient Discharge Instructions Interventions: ED Discharge Assessment Last Done: 06/23/20 17:27
[2020-06-23 16:26] LABS: Partial Thromboplastin Ratio 1.2; Partial Thromboplastin Time 32.5 Seconds (21.0-31.0)
[2020-06-23] MEDS: HEPARIN SODIUM/DEXTROSE 25,000 UNITS/500 ML BAG IV SCH (16:40)
[2020-06-23] MEDS ORDERED: POLYETHYLENE (MIRALAX) 17 GM PACK PO PRN (18:31)
[2020-06-23] MEDS ORDERED: MAGNESIUM HYDROXIDE SUSP 30 ML UDC PO PRN (18:31)
[2020-06-23] MEDS ORDERED: PHARMACIST DISCHARGE MED REC CONSULT PRN (18:31)
[2020-06-23] MEDS ORDERED: ALUMINUM/MAGNESIUM SUSP 30 ML UDC PO PRN (18:31)
[2020-06-23] MEDS ORDERED: ACETAMINOPHEN 325 MG TAB PO PRN (18:31)
[2020-06-23] MEDS ORDERED: ONDANSETRON INJ 2 MG/ML 2 ML VIAL IV PRN (18:31)
[2020-06-23] MEDS ORDERED: METOPROLOL TARTRATE 1 MG/ML VIAL IV PRN (19:28)
[2020-06-23] MEDS: cefTRIAXone SODIUM 2,000 MG in DEXTROSE 5% 50 ML IV SCH (19:50)
[2020-06-23] MEDS ORDERED: METOPROLOL TARTRATE 25 MG TAB PO SCH (20:00)
[2020-06-23 20:06] LABS: BUN Creatinine Ratio 33.4 (10-20); Calcium 8.3 mg/dl (8.5-10.1); Creatinine Clr Calc Pharmacy 37.3 ml/min; Est GFR (African American) 68.1; Est GFR (Non-African American) 58.7; Potassium 3.9 mmol/L (3.5-5.1)
[2020-06-23] MEDS: DOXYCYCLINE HYCLATE 100 MG CAP PO SCH (20:43)
[2020-06-23] MEDS ORDERED: 0.2 MICRON FILTER SET 1 EA IV ONE (22:29)
[2020-06-23] MEDS ORDERED: AMIODARONE IV BOLUS & DRIP IV STA (22:29)
[2020-06-23] MEDS ORDERED: AMIODARONE / D5W 150 MG/100 ML BAG IV STA (22:29)
--- NOTE | 2020-06-23 22:32 | Communication Note ---
Date of Service: June 23, 2020 Aware by RN of uncontrolled AFl rate 160s, SBP 80s on Cardizem infusion 15 mg/h. DC Cardizem. Initiate amiodarone bolus, infusion for rate control.
[2020-06-23] MEDS ORDERED: AMIODARONE / D5W 360 MG/200 ML BAG IV ONE (23:00)
[2020-06-23] MEDS ORDERED: LACTATED RINGER'S 1,000 ML IV ONE (23:00)
[2020-06-23] MEDS ORDERED: POTASSIUM CHLORIDE CRTAB 20 MEQ TABCR PO ONE (23:00)
[2020-06-23 23:42] LABS: Partial Thromboplastin Ratio 3.6
[2020-06-23 23:52] LABS: Partial Thromboplastin Time 101.6 Seconds (21.0-31.0)
[2020-06-24] MEDS ORDERED: LACTATED RINGER'S 1,000 ML IV ONE (00:57)
[2020-06-24 02:55] LABS: Appearance Urine Clear (Clear); Bacteria Urine Automated Negative (Negative); Blood Urine Negative (Negative); Color Urine Dark Yellow; Epithelial Cell Urine Auto >30 /lpf (0-5); Glucose Urine UA Negative (Negative); Ketones Urine Trace (Negative); Leukocyte Esterase Urine Trace (Negative); Nitrite Urine Negative (Negative); Protein Urine Trace (Negative); Specific Gravity Urine 1.038 (1.000-1.030); Urobilinogen Urine Negative (Negative)
[2020-06-24 03:17] LABS: Bilirubin Urine Negative (Negative); Ictotest Urine Negative (Negative)
[2020-06-24] MEDS ORDERED: DIGOXIN 250 MCG in SYRINGE 9 ML IV ONE ×2 (04:30→05:45)
[2020-06-24] MEDS: AMIODARONE / D5W 360 MG/200 ML BAG IV SCH ×2 (04:55→16:59)
--- NOTE | 2020-06-24 05:50 | Electrocardiogram Report ---
Test Reason : Blood Pressure : / mmHG Vent. Rate : 165 BPM Atrial Rate : 165 BPM P-R Int : 000 ms QRS Dur : 126 ms QT Int : 256 ms P-R-T Axes : 000 021 242 degrees QTc Int : 424 ms Possible Atrial flutter with 2 to 1 block Non-specific intra-ventricular conduction block Anteroseptal infarct , age undetermined T wave abnormality, consider lateral ischemia Abnormal ECG When compared with ECG of 15-AUG-1995 13:03, Atrial flutter has replaced Sinus rhythm Vent. rate has increased BY 95 BPM Anteroseptal infarct is now Present Confirmed by Amarjit Thurman ([id number]) on 06/24/2020 5:49:57 AM Referred By: REFERRED SELF Confirmed By:Amarjit Thurman
[2020-06-24 06:42] LABS: Basophils # (auto) 0.01 K/uL (0-0.2); Basophils % (auto) 0.1 %; Eosinophils # (auto) 0.01 K/uL (0-0.5); Eosinophils % (auto) 0.1 %; Hematocrit (blood only) 36.5 % (42-52); Hemoglobin 12.3 g/dL (14.0-18.0); Immature Granulocytes # (auto) 0.07 K/uL (0.00-0.02); Immature Granulocytes % (auto) 0.7 %; Lymphocytes # (auto) 0.99 K/uL (1.2-3.4); Lymphocytes % (auto) 9.4 %; Mean Corpuscular Hemoglobin 31.5 pg (25-34); Mean Corpuscular Hgb Conc 33.7 g/dL (32-36); Mean Corpuscular Volume 93.4 fL (80-100); Mean Platelet Volume 10.6 fL (7.4-10.4); Monocytes # (auto) 0.91 K/uL (0.11-0.59); Monocytes % (auto) 8.7 %; Neutrophils # (auto) 8.49 K/uL (1.4-6.5); Platelet Count 130 K/uL (130-400); RDW Coefficient of Variation 15.1 % (11.5-14.5); RDW Standard Deviation 50.9 fL (36.4-46.3); Red Blood Count 3.91 M/uL (4.7-6.1); White Blood Count 10.48 K/uL (4.8-10.8)
[2020-06-24 06:54] LABS: Estimated Average Glucose 111 mg/dl; Hemoglobin A1C 5.5 % (4.5-5.6)
[2020-06-24 07:03] LABS: Partial Thromboplastin Ratio 4.7
[2020-06-24 07:06] LABS: Partial Thromboplastin Time 130.8 Seconds (21.0-31.0)
[2020-06-24 07:24] LABS: BUN Creatinine Ratio 28.5 (10-20); Calcium 7.9 mg/dl (8.5-10.1); Creatinine Clr Calc Pharmacy 39.6 ml/min; Est GFR (African American) 72.6; Est GFR (Non-African American) 62.6; Potassium 4.2 mmol/L (3.5-5.1)
[2020-06-24] MEDS: LACTATED RINGER'S 1,000 ML IV SCH ×2 (07:32→19:37)
[2020-06-24] MEDS ORDERED: Nursing to Pharmacy Communication SCH ×2 (07:45→17:00)
[2020-06-24] MEDS: DOXYCYCLINE HYCLATE 100 MG CAP PO SCH ×2 (08:54→22:20)
[2020-06-24] MEDS ORDERED: METOPROLOL TARTRATE 1 MG/ML VIAL IV SCH (12:30)
--- NOTE | 2020-06-24 12:39 | Cardiology Consultation ---
Date of Consultation June 24, 2020 Assessment & Plan (1) Acute metabolic encephalopathy: (2) Stroke-like symptom: (3) Lactic acidosis: (4) Elevated troponin: (5) AWAIS (acute kidney injury): (6) Atrial flutter with rapid ventricular response: (7) SIRS (systemic inflammatory response syndrome): (8) Tachycardia induced cardiomyopathy: This unfortunate patient was found by family at his home unable to get off the couch. It is uncertain as to how long he was incapacitated. He has a metabolic encephalopathy and possible sepsis although cultures are pending. He has been started on antibiotics and given IV hydration. He has atrial flutter with 2-1 conduction and tachycardia. Multiple different medications have been tried including more recently an infusion of amiodarone which has not slowed his heart rate. I will add low-dose beta-nik realizing that he is hypotensive, but ultimately the patient may have to go through early cardioversion. As long as the patient has no contraindication, I would continue IV heparin. History of Present Illness Attending Physician: Mike Nixon MD History of Present Illness This is an 79-year-old male patient who lives alone. His family checks on him and brings him groceries every 1 to 2 weeks. He does not follow regularly with any PCP and has not had any recent medical care. His granddaughter was having difficulty getting a hold of him and decided to go over to the house where she noted the mailbox was full and when she did not get an answer she broke into the house. She found the patient on the couch not able to get up. He has been admitted with mental status changes most likely multifactorial due to metabolic encephalopathy. He was noted to be in tachycardia and EKG suggests atrial flutter with 2-1 conduction. He was fluid resuscitated. Antibiotics were started. Cultures are pending. He was also given diltiazem intravenously without improvement of his tachycardia. He got 2 doses of digoxin without success. Finally, early this morning he was started on an amiodarone infusion but still remains in atrial flutter with 2-1 conduction. Fortunately, from a cardiac standpoint he has been stable. Although he is confused he appears to be comfortable. Echocardiogram reveals poor LV function however, it was completed with the patient in tachycardia. 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 No findings of a stroke. An MRI of the brain is pending. Allergies Allergy/AdvReac Type Severity Reaction Status Date / Time No Known Allergies Allergy Unverified 06/23/20 13:19 Home Medications Medication Instructions Recorded Confirmed Type No Known Home Medications 06/23/20 06/23/20 History Patient History Medical History No significant past medical history Surgical History History of knee surgery left Family History Other Unknown family medical history Social History Smoking Status: Never smoker Hx Alcohol Use: No Hx Substance Use: No Preferred Language: Gambian Communication Ability: Effective Icer Hand Required: No Beliefs That Will Affect Care: None marital status: / Current Living Situation: Alone Other Information That Helps Us Care for You: No Feels Safe at Home: Yes Safety Concerns: Feels Safe At This Time Assistive Devices: None Review of Systems Review of Systems: Unobtainable due to cognitive status Physical Exam Physical Exam: General: Disoriented x3 Head: normocephalic, no masses, lesions, tenderness or abnormalities Eyes: conjunctiva are pink and non-injected, sclera clear Neck: supple, no adenopathy, no bruits, normal jugular venous pulse, no hepatojugular reflux Chest: normal shape and normal respiratory effort Lungs: clear to auscultation and percussion Cardiac Exam: - irregular rate & rhythm, no murmurs gallops or rubs - normal S1, normal S2 Pulses: 2(+) throughout Abdomen: abdomen soft, non-tender, no abnormal masses and no hepatosplenomegaly Musculoskeletal: no gait disturbance, no joint inflammation, no deforming arthritis Extremities: no edema and no cyanosis Neuro: grossly normal exam Results & Data ([facility]) Vital Signs (Past 12 Hours) Vital Signs Temp Pulse Pulse Resp BP Pulse Ox 06/24/20 08:00 140 H 06/24/20 07:47 36.7 C 140 H 20 102/62 94 06/24/20 06:03 142 H 06/24/20 05:35 142 H 96/71 L 06/24/20 04:52 142 H 06/24/20 04:21 36.3 C L 142 H 19 97/71 L 96 06/24/20 03:00 144 H 97/66 L 06/24/20 00:47 147 H 87/60 L Laboratory Results Laboratory Results - last 24 hr 06/23/20 06/23/20 06/23/20 11:53 11:53 11:53 WBC RBC Hgb Hct MCV MCH MCHC RDW Std Deviation RDW Coeff of Iron Plt Count MPV Immature Gran % (Auto) Neut % (Auto) Lymph % (Auto) [place] % (Auto) Eos % (Auto) Baso % (Auto) Neut # (Auto) Lymph # (Auto) [place] # (Auto) Eos # (Auto) Baso # (Auto) Immature Gran # (Auto) APTT PTT Ratio Sodium Potassium Chloride Carbon Dioxide Anion Gap BUN Creatinine Est Cr Clr Drug Dosing Est GFR ( Amer) Est GFR (Non-Af Amer) BUN/Creatinine Ratio Glucose Estimat Average Glucose Hemoglobin A1c Lactate 3.5 H* Calcium Troponin I 0.188 H* Triglycerides Cholesterol LDL Cholesterol, Calc VLDL Cholesterol, Calc HDL Cholesterol Cholesterol/HDL Ratio Procalcitonin TSH 3.030 Urine Color Urine Appearance Urine pH Ur Specific [place] Urine Protein Urine Glucose (UA) Urine Ketones Urine Blood Urine Nitrite Urine Bilirubin Urine Urobilinogen Ur Leukocyte Esterase Urine WBC (Auto) Urine RBC (Auto) U Hyaline Cast (Auto) U Epithel Cells (Auto) Urine Bacteria (Auto) SARS-CoV-2 Ag (Rapid) Blood Type O Positive Antibody Screen NEGATIVE 06/23/20 06/23/20 06/23/20 11:59 11:59 13:30 WBC RBC Hgb Hct MCV MCH MCHC RDW Std Deviation RDW Coeff of Iron Plt Count MPV Immature Gran % (Auto) Neut % (Auto) Lymph % (Auto) [place] % (Auto) Eos % (Auto) Baso % (Auto) Neut # (Auto) Lymph # (Auto) [place] # (Auto) Eos # (Auto) Baso # (Auto) Immature Gran # (Auto) APTT 32.5 H PTT Ratio 1.2 Sodium Potassium Chloride Carbon Dioxide Anion Gap BUN Creatinine Est Cr Clr Drug Dosing Est GFR ( Amer) Est GFR (Non-Af Amer) BUN/Creatinine Ratio Glucose Estimat Average Glucose Hemoglobin A1c Lactate Calcium Troponin I Triglycerides Cholesterol LDL Cholesterol, Calc VLDL Cholesterol, Calc HDL Cholesterol Cholesterol/HDL Ratio Procalcitonin 0.15 TSH Urine Color Urine Appearance Urine pH Ur Specific [place] Urine Protein Urine Glucose (UA) Urine Ketones Urine Blood Urine Nitrite Urine Bilirubin Urine Urobilinogen Ur Leukocyte Esterase Urine WBC (Auto) Urine RBC (Auto) U Hyaline Cast (Auto) U Epithel Cells (Auto) Urine Bacteria (Auto) SARS-CoV-2 Ag (Rapid) Negative Blood Type Antibody Screen 06/23/20 06/23/20 06/23/20 15:18 15:18 19:40 WBC RBC Hgb Hct MCV MCH MCHC RDW Std Deviation RDW Coeff of Iron Plt Count MPV Immature Gran % (Auto) Neut % (Auto) Lymph % (Auto) [place] % (Auto) Eos % (Auto) Baso % (Auto) Neut # (Auto) Lymph # (Auto) [place] # (Auto) Eos # (Auto) Baso # (Auto) Immature Gran # (Auto) APTT PTT Ratio Sodium 132 L Potassium 3.9 Chloride 99 Carbon Dioxide 26 Anion Gap 7.0 BUN 39 H Creatinine 1.16 D Est Cr Clr Drug Dosing 37.3 Est GFR ( Amer) 68.1 Est GFR (Non-Af Amer) 58.7 BUN/Creatinine Ratio 33.4 H Glucose 108 H Estimat Average Glucose Hemoglobin A1c Lactate 3.3 H* Calcium 8.3 L Troponin I 0.185 H* Triglycerides Cholesterol LDL Cholesterol, Calc VLDL Cholesterol, Calc HDL Cholesterol Cholesterol/HDL Ratio Procalcitonin TSH Urine Color Urine Appearance Urine pH Ur Specific [place] Urine Protein Urine Glucose (UA) Urine Ketones Urine Blood Urine Nitrite Urine Bilirubin Urine Urobilinogen Ur Leukocyte Esterase Urine WBC (Auto) Urine RBC (Auto) U Hyaline Cast (Auto) U Epithel Cells (Auto) Urine Bacteria (Auto) SARS-CoV-2 Ag (Rapid) Blood Type Antibody Screen 06/23/20 06/23/20 06/23/20 19:40 21:36 23:02 WBC RBC Hgb Hct MCV MCH MCHC RDW Std Deviation RDW Coeff of Iron Plt Count MPV Immature Gran % (Auto) Neut % (Auto) Lymph % (Auto) [place] % (Auto) Eos % (Auto) Baso % (Auto) Neut # (Auto) Lymph # (Auto) [place] # (Auto) Eos # (Auto) Baso # (Auto) Immature Gran # (Auto) APTT PTT Ratio Sodium Potassium Chloride Carbon Dioxide Anion Gap BUN Creatinine Est Cr Clr Drug Dosing Est GFR ( Amer) Est GFR (Non-Af Amer) BUN/Creatinine Ratio Glucose Estimat Average Glucose Hemoglobin A1c Lactate 2.1 H* 2.1 H* Calcium Troponin I 0.160 H* Triglycerides Cholesterol LDL Cholesterol, Calc VLDL Cholesterol, Calc HDL Cholesterol Cholesterol/HDL Ratio Procalcitonin TSH Urine Color Urine Appearance Urine pH Ur Specific [place] Urine Protein Urine Glucose (UA) Urine Ketones Urine Blood Urine Nitrite Urine Bilirubin Urine Urobilinogen Ur Leukocyte Esterase Urine WBC (Auto) Urine RBC (Auto) U Hyaline Cast (Auto) U Epithel Cells (Auto) Urine Bacteria (Auto) SARS-CoV-2 Ag (Rapid) Blood Type Antibody Screen 06/23/20 06/24/20 06/24/20 23:02 02:20 06:25 WBC 10.48 RBC 3.91 L Hgb 12.3 L Hct 36.5 L MCV 93.4 MCH 31.5 MCHC 33.7 RDW Std Deviation 50.9 H RDW Coeff of Iron 15.1 H Plt Count 130 MPV 10.6 H Immature Gran % (Auto) 0.7 Neut % (Auto) 81.0 Lymph % (Auto) 9.4 [place] % (Auto) 8.7 Eos % (Auto) 0.1 Baso % (Auto) 0.1 Neut # (Auto) 8.49 H Lymph # (Auto) 0.99 L [place] # (Auto) 0.91 H Eos # (Auto) 0.01 Baso # (Auto) 0.01 Immature Gran # (Auto) 0.07 H APTT 101.6 H* PTT Ratio 3.6 Sodium Potassium Chloride Carbon Dioxide Anion Gap BUN Creatinine Est Cr Clr Drug Dosing Est GFR ( Amer) Est GFR (Non-Af Amer) BUN/Creatinine Ratio Glucose Estimat Average Glucose Hemoglobin A1c Lactate Calcium Troponin I Triglycerides Cholesterol LDL Cholesterol, Calc VLDL Cholesterol, Calc HDL Cholesterol Cholesterol/HDL Ratio Procalcitonin TSH Urine Color Dark Yellow Urine Appearance Clear Urine pH 5.0 Ur Specific [place] 1.038 H Urine Protein Trace H Urine Glucose (UA) Negative Urine Ketones Trace H Urine Blood Negative Urine Nitrite Negative Urine Bilirubin Negative Urine Urobilinogen Negative Ur Leukocyte Esterase Trace H Urine WBC (Auto) 1-5 Urine RBC (Auto) 10-30 H U Hyaline Cast (Auto) 1-5 U Epithel Cells (Auto) >30 H Urine Bacteria (Auto) Negative SARS-CoV-2 Ag (Rapid) Blood Type Antibody Screen 06/24/20 06/24/20 06/24/20 06:25 06:25 06:25 WBC RBC Hgb Hct MCV MCH MCHC RDW Std Deviation RDW Coeff of Iron Plt Count MPV Immature Gran % (Auto) Neut % (Auto) Lymph % (Auto) [place] % (Auto) Eos % (Auto) Baso % (Auto) Neut # (Auto) Lymph # (Auto) [place] # (Auto) Eos # (Auto) Baso # (Auto) Immature Gran # (Auto) APTT PTT Ratio Sodium 132 L Potassium 4.2 Chloride 100 Carbon Dioxide 26 Anion Gap 6.0 BUN 31 H Creatinine 1.10 Est Cr Clr Drug Dosing 39.6 Est GFR ( Amer) 72.6 Est GFR (Non-Af Amer) 62.6 BUN/Creatinine Ratio 28.5 H Glucose 120 H Estimat Average Glucose 111 Hemoglobin A1c 5.5 Lactate 2.2 H* Calcium 7.9 L Troponin I Triglycerides 60 Cholesterol 113 LDL Cholesterol, Calc 61 VLDL Cholesterol, Calc 12 HDL Cholesterol 40 Cholesterol/HDL Ratio 3 Procalcitonin TSH Urine Color Urine Appearance Urine pH Ur Specific [place] Urine Protein Urine Glucose (UA) Urine Ketones Urine Blood Urine Nitrite Urine Bilirubin Urine Urobilinogen Ur Leukocyte Esterase Urine WBC (Auto) Urine RBC (Auto) U Hyaline Cast (Auto) U Epithel Cells (Auto) Urine Bacteria (Auto) SARS-CoV-2 Ag (Rapid) Blood Type Antibody Screen 06/24/20 06:26 WBC RBC Hgb Hct MCV MCH MCHC RDW Std Deviation RDW Coeff of Iron Plt Count MPV Immature Gran % (Auto) Neut % (Auto) Lymph % (Auto) [place] % (Auto) Eos % (Auto) Baso % (Auto) Neut # (Auto) Lymph # (Auto) [place] # (Auto) Eos # (Auto) Baso # (Auto) Immature Gran # (Auto) APTT 130.8 H* PTT Ratio 4.7 Sodium Potassium Chloride Carbon Dioxide Anion Gap BUN Creatinine Est Cr Clr Drug Dosing Est GFR ( Amer) Est GFR (Non-Af Amer) BUN/Creatinine Ratio Glucose Estimat Average Glucose Hemoglobin A1c Lactate Calcium Troponin I Triglycerides Cholesterol LDL Cholesterol, Calc VLDL Cholesterol, Calc HDL Cholesterol Cholesterol/HDL Ratio Procalcitonin TSH Urine Color Urine Appearance Urine pH Ur Specific [place] Urine Protein Urine Glucose (UA) Urine Ketones Urine Blood Urine Nitrite Urine Bilirubin Urine Urobilinogen Ur Leukocyte Esterase Urine WBC (Auto) Urine RBC (Auto) U Hyaline Cast (Auto) U Epithel Cells (Auto) Urine Bacteria (Auto) SARS-CoV-2 Ag (Rapid) Blood Type Antibody Screen Medications Administered Current Inpatient Medications Acetaminophen (Acetaminophen 325 Mg Tab) 650 mg PO Q4H PRN PRN Reason: Pain or Fever Stop: 07/23/20 18:30 Al Hydrox/Mg Hydrox/Simethicone (Aluminum/Magnesium Susp 30 Ml Udc) 15 ml PO Q4H PRN PRN Reason: Dyspepsia Stop: 07/23/20 18:30 Doxycycline Hyclate (Doxycycline Hyclate 100 Mg Cap) 100 mg PO BID [facility]; Protocol Stop: 06/25/20 20:59 Last Admin: 06/24/20 08:54 Dose: 100 mg Documented by: Heparin Sodium/Dextrose (Heparin Sodium/Dextrose) 25,000 units in 500 mls @ 14 mls/hr IV .Q24H [facility]; Protocol Stop: 07/23/20 15:17 Last Titration: 06/24/20 07:07 Dose: 0 units/hr, 0 mls/hr Documented by: Ceftriaxone Sodium 2,000 mg/ (Dextrose) 70 mls @ 100 mls/hr IV Q24H [facility]; Protocol Stop: 06/25/20 18:30 Last Infusion: 06/23/20 22:08 Dose: Infused Documented by: Amiodarone HCl/Dextrose (Nexterone / D5w) 360 mg in 200 mls @ 16.667 mls/hr IV .Q12H JACQUE Stop: 07/24/20 04:59 Last Admin: 06/24/20 04:55 Dose: 0.5 mg/min, 16.7 mls/hr Documented by: Lactated Ringer's (Lr) 1,000 mls @ 80 mls/hr IV .[id number] [facility] Stop: 07/24/20 05:59 Last Admin: 06/24/20 07:32 Dose: 80 mls/hr Documented by: Magnesium Hydroxide (Magnesium Hydroxide Susp 30 Ml Udc) 30 ml PO Q12H PRN PRN Reason: Constipation Stop: 07/23/20 18:30 Metoprolol Tartrate (Metoprolol Tartrate 1 Mg/Ml Vial) 2.5 mg IV Q6 JACQUE Stop: 07/24/20 12:29 Miscellaneous Information (Pharmacist Discharge Med Rec Consult) 1 ea N/A UD PRN PRN Reason: Consult Stop: 07/23/20 18:30 Ondansetron HCl (Ondansetron Inj 2 Mg/Ml 2 Ml Vial) 4 mg IV Q6H PRN PRN Reason: Nausea Stop: 07/23/20 18:30 Polyethylene Glycol (Polyethylene (Miralax) 17 Gm Pack) 17 gm PO DAILY PRN PRN Reason: Constipation Stop: 07/23/20 18:30
--- NOTE | 2020-06-24 13:42 | Neurology Consultation ---
Date of Consultation June 24, 2020 Assessment & Plan (1) Acute metabolic encephalopathy: 1. likely underlying white matter changes and possible sepsis 2. antibiotic treat to culture 3. correct electrolytes 4. check thiamine and then start thiamine 5. check TSH, B12, folate Present on Admission?: Yes (2) Stroke-like symptom: 1. aspirin 81 mg plavix 75 mg daily for 21 days then aspirin alone- cardi ology for any coagulation needs- continue heparin for now 2. optimize HTN ,HLD, LDL <70 3. PT/OT for discharge needs- will likely need placement 4. fall precautions 5. MRI brain with and without r/o stroke when physically able to tolerate 6. TTE- no ASD (3) Atrial flutter with rapid ventricular response: 1. 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 as well He is been found essentially down at his home in a confused state with obvious poor nutrition and hygiene and with the food supply that has not been touched apparently for nearly a month and infested by the presence of unpack groceries been present in the home from 05/27 Little is known about his past medical history but 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 The CT angiographic findings of significant stenosis of the vertebral system really has little or no bearing on his current clinical presentation and would require only aspirin and Plavix anyway but the atrial fibrillation and depressed ejection fraction certainly brings a more vigorous anticoagulation program into play Obviously is going to need social service assessment and placement I will be dropping by over the weekend to check on him but for now I do not think neurology has any further suggestions other than getting the MRI at some point and on an outpatient basis perhaps to do an EMG of the right arm to assess the level of presumed brachial plexus or proximal radial nerve involvement George Sanabria MD History of Present Illness Reason for Consultation: stroke like symptoms Requesting Physician: Mike Nixon MD Attending Physician: Mike Nixon MD History of Present Illness Chucky is a 79 year old male who has an unknown PMH. He does no follow regularly with a PCP and presented who presents to ED 06/23/2020 with POA/granddaughter which a change in MS and weakness for unknown duration. He lives alone at home and for the past 10 years. History in chart is per POA. She see him every 1 to 2 weeks when she brings him groceries. Last know 05/27 at baseline. She states that recently they have been unable to get a hold of patient via phone, but was not overly alarmed as he occasionally does not answer the telephone secondary to frequent solicitor's. When she did go to check on him he wouldn't answer the door. She went to check his mailbox which was full. She broke into the house and found him trying to get off the couch and unable to do so. He has lost a significant amount of weight since last seen and noticed groceries that they obtained on 05/27 with still not put away. Granddaughter unable to care for him and feels he will likely need placed. She states she cannot remember the last time he saw Dr. and he does not take any medications and does not know if he has any medical issues. He had smoked and drank alcohol in the past but denies any current tobacco/alcohol use. At baseline he is able to ambulate without assist device. In the ED he had wide-complex tachycardia with heart rates in the 160s. He was given adenosine 6 mg then 12 mg. He received a diltiazem bolus and started on Cardizem drip without much improvement in heart rate. He did receive 500 mL IVF. Lab abnormalities notable for leukocytosis 16.05k, H&H 14.6 and 43.2, sodium 129, BUN 51, creatinine 1.72, glucose 137, lactic acid 3.5 troponin 0.118. Currently he is lying in bed. his only complaint is that he is cold. denies CP, SOB, abdominal pain, one sided weakness, numbness tingling. Allergies Allergy/AdvReac Type Severity Reaction Status Date / Time No Known Allergies Allergy Unverified 06/23/20 13:19 Home Medications Medication Instructions Recorded Confirmed Type No Known Home Medications 06/23/20 06/23/20 History Patient History Medical History No significant past medical history Surgical History History of knee surgery left Family History Other Unknown family medical history Social History Smoking Status: Never smoker Hx Alcohol Use: No Hx Substance Use: No Preferred Language: Latvian Communication Ability: Impaired Independent Film Maker Required: No Beliefs That Will Affect Care: None marital status: / Current Living Situation: Alone Other Information That Helps Us Care for You: No Feels Safe at Home: Yes Safety Concerns: Feels Safe At This Time Assistive Devices: None Review of Systems Review of Systems: All systems reviewed & are unremarkable except as noted in HPI & below and All systems reviewed & are unremarkable except as noted in Subjective Physical Exam Physical Exam: Physical Exam: Constitutional: ill appearance very thin pale, unkempt Ears, Nose, Mouth and Throat: mucous membranes moist, no injection and skin normal, eyes normal Cardiovascular: irregular Respiratory: course breath sounds Musculoskeletal: bilateral LE edema, decrease distal pulses Skin: no stigmata of neurocutaneous disease noted and normal and intact Eyes: extraocular muscles intact (EOMI) NEUROLOGIC EXAMINATION: Mental status: Alert and interactive Oriented to person, thinks he is [facility], then [place], does not know the year or the president Speech fluent with no evidence of aphasia Cranial Nerves facial symmetry Reflexes: Deep tendon reflexes were symmetrical and graded 2/5. neutral toes Sensory: decrease with vibration and light touch to mid calf Coordination: finger to nose Gait/Stance: Posture lying in bed Strength: biceps triceps hand patient portal representative 4+/5, hip flex bilaterally 4+/5, right ankle wrap Results & Data ([facility]) Vital Signs (Past 12 Hours) Vital Signs Temp Pulse Pulse Resp BP Pulse Ox 06/24/20 12:50 36.2 C L 142 H 20 114/78 98 06/24/20 08:00 140 H 06/24/20 07:47 36.7 C 140 H 20 102/62 94 06/24/20 06:03 142 H 06/24/20 05:35 142 H 96/71 L 06/24/20 04:52 142 H 06/24/20 04:21 36.3 C L 142 H 19 97/71 L 96 06/24/20 03:00 144 H 97/66 L Laboratory Results Abnormal lab results 06/23/20 06/23/20 06/23/20 Range/Units 11:59 15:18 15:18 RBC (4.7-6.1) M/uL Hgb (14.0-18.0) g/dL Hct (42-52) % RDW Std Deviation (36.4-46.3) fL RDW Coeff of Iron (11.5-14.5) % MPV (7.4-10.4) fL Neut # (Auto) (1.4-6.5) K/uL Lymph # (Auto) (1.2-3.4) K/uL [place] # (Auto) (0.11-0.59) K/uL Immature Gran # (Auto) (0.00-0.02) K/uL APTT 32.5 H (21.0-31.0) Seconds Sodium (136-145) mmol/L BUN (7-18) mg/dl BUN/Creatinine Ratio (10-20) Glucose (70-99) mg/dl Lactate 3.3 H* (0.4-2.0) mmol/L Calcium (8.5-10.1) mg/dl Troponin I 0.185 H* (0-0.045) ng/ml Ur Specific [place] (1.000-1.030) Urine Protein (Negative) Urine Ketones (Negative) Ur Leukocyte Esterase (Negative) Urine RBC (Auto) (0-4) /hpf U Epithel Cells (Auto) (0-5) /lpf 06/23/20 06/23/20 06/23/20 Range/Units 19:40 19:40 21:36 RBC (4.7-6.1) M/uL Hgb (14.0-18.0) g/dL Hct (42-52) % RDW Std Deviation (36.4-46.3) fL RDW Coeff of Iron (11.5-14.5) % MPV (7.4-10.4) fL Neut # (Auto) (1.4-6.5) K/uL Lymph # (Auto) (1.2-3.4) K/uL [place] # (Auto) (0.11-0.59) K/uL Immature Gran # (Auto) (0.00-0.02) K/uL APTT (21.0-31.0) Seconds Sodium 132 L (136-145) mmol/L BUN 39 H (7-18) mg/dl BUN/Creatinine Ratio 33.4 H (10-20) Glucose 108 H (70-99) mg/dl Lactate 2.1 H* 2.1 H* (0.4-2.0) mmol/L Calcium 8.3 L (8.5-10.1) mg/dl Troponin I (0-0.045) ng/ml Ur Specific [place] (1.000-1.030) Urine Protein (Negative) Urine Ketones (Negative) Ur Leukocyte Esterase (Negative) Urine RBC (Auto) (0-4) /hpf U Epithel Cells (Auto) (0-5) /lpf 06/23/20 06/23/20 06/24/20 Range/Units 23:02 23:02 02:20 RBC (4.7-6.1) M/uL Hgb (14.0-18.0) g/dL Hct (42-52) % RDW Std Deviation (36.4-46.3) fL RDW Coeff of Iron (11.5-14.5) % MPV (7.4-10.4) fL Neut # (Auto) (1.4-6.5) K/uL Lymph # (Auto) (1.2-3.4) K/uL [place] # (Auto) (0.11-0.59) K/uL Immature Gran # (Auto) (0.00-0.02) K/uL APTT 101.6 H* (21.0-31.0) Seconds Sodium (136-145) mmol/L BUN (7-18) mg/dl BUN/Creatinine Ratio (10-20) Glucose (70-99) mg/dl Lactate (0.4-2.0) mmol/L Calcium (8.5-10.1) mg/dl Troponin I 0.160 H* (0-0.045) ng/ml Ur Specific [place] 1.038 H (1.000-1.030) Urine Protein Trace H (Negative) Urine Ketones Trace H (Negative) Ur Leukocyte Esterase Trace H (Negative) Urine RBC (Auto) 10-30 H (0-4) /hpf U Epithel Cells (Auto) >30 H (0-5) /lpf 06/24/20 06/24/20 06/24/20 Range/Units 06:25 06:25 06:25 RBC 3.91 L (4.7-6.1) M/uL Hgb 12.3 L (14.0-18.0) g/dL Hct 36.5 L (42-52) % RDW Std Deviation 50.9 H (36.4-46.3) fL RDW Coeff of Iron 15.1 H (11.5-14.5) % MPV 10.6 H (7.4-10.4) fL Neut # (Auto) 8.49 H (1.4-6.5) K/uL Lymph # (Auto) 0.99 L (1.2-3.4) K/uL [place] # (Auto) 0.91 H (0.11-0.59) K/uL Immature Gran # (Auto) 0.07 H (0.00-0.02) K/uL APTT (21.0-31.0) Seconds Sodium 132 L (136-145) mmol/L BUN 31 H (7-18) mg/dl BUN/Creatinine Ratio 28.5 H (10-20) Glucose 120 H (70-99) mg/dl Lactate 2.2 H* (0.4-2.0) mmol/L Calcium 7.9 L (8.5-10.1) mg/dl Troponin I (0-0.045) ng/ml Ur Specific [place] (1.000-1.030) Urine Protein (Negative) Urine Ketones (Negative) Ur Leukocyte Esterase (Negative) Urine RBC (Auto) (0-4) /hpf U Epithel Cells (Auto) (0-5) /lpf 06/24/20 Range/Units 06:26 RBC (4.7-6.1) M/uL Hgb (14.0-18.0) g/dL Hct (42-52) % RDW Std Deviation (36.4-46.3) fL RDW Coeff of Iron (11.5-14.5) % MPV (7.4-10.4) fL Neut # (Auto) (1.4-6.5) K/uL Lymph # (Auto) (1.2-3.4) K/uL [place] # (Auto) (0.11-0.59) K/uL Immature Gran # (Auto) (0.00-0.02) K/uL APTT 130.8 H* (21.0-31.0) Seconds Sodium (136-145) mmol/L BUN (7-18) mg/dl BUN/Creatinine Ratio (10-20) Glucose (70-99) mg/dl Lactate (0.4-2.0) mmol/L Calcium (8.5-10.1) mg/dl Troponin I (0-0.045) ng/ml Ur Specific [place] (1.000-1.030) Urine Protein (Negative) Urine Ketones (Negative) Ur Leukocyte Esterase (Negative) Urine RBC (Auto) (0-4) /hpf U Epithel Cells (Auto) (0-5) /lpf Diagnostic Findings CT head- no acute abnormalities CTA neck/head-No central vessel occlusion. Dominant, patent left vertebral artery. 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 Exam mildly compromised by suboptimal opacification. TTE EF 20-25% no ASD
[2020-06-24 16:33] LABS: Partial Thromboplastin Ratio 2.5
[2020-06-24 16:43] LABS: Partial Thromboplastin Time 70.7 Seconds (21.0-31.0)
[2020-06-24] MEDS: HEPARIN SODIUM/DEXTROSE 25,000 UNITS/500 ML BAG IV SCH ×2 (16:57→22:20)
[2020-06-24] MEDS: METOPROLOL TARTRATE 1 MG/ML VIAL IV SCH (18:01)
[2020-06-24] MEDS: cefTRIAXone SODIUM 2,000 MG in DEXTROSE 5% 50 ML IV SCH (18:05)
--- NOTE | 2020-06-24 19:05 | Hospitalist Progress Note ---
Date of Service June 24, 2020 Assessment & Plan (1) SIRS (systemic inflammatory response syndrome): (2) Acute metabolic encephalopathy: (3) Atrial flutter with rapid ventricular response: Patient is an 79 yr male with unknown PMH and does not follow with regular PCP who presents to ED with POA/granddaughter secondary to change in mental status and weakness for unknown duration. Atrial Flutter with RVR Normal TSH ECHO: EF 20 to 25%. Right ventricle systolic function is normal. Left atrium size is normal. Right atrial size is normal. There is mild mitral regurgitation. IV Cardizem drip discontinued. Also received digoxin. Also received Adenosine Continue IV amiodarone Continue IV heparin Appreciate cardiology input May need cardioversion Also started on 5 mg IV metoprolol every 6 hours Possible Severe Sepsis Lactic acidosis Unclear source Blood Cx: No growth to date UA not suggestive of UTI Chest x-ray showed no acute process Received gentle IV fluids Blood pressure improved Given significant reduced EF, will reassess frequently for volume status Empirically on Rocephin, doxycycline (4) Stroke-like symptom: Acute metabolic encephalopathy Strokelike symptoms CT Head: No acute intracranial findings Head CTA:No central vessel occlusion. Dominant, patent left vertebral artery. 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 Neck CTA:No evidence of hemodynamically significant carotid stenosis. Dominant left vertebral artery. Distal right vertebral artery stenosis. MRI Brain: pending May need EMG LDL:61 Check Thiamine, Folic acid, B12 levels Normal TSH Speech eval Consider starting on Aspirin if MRI shows CVA Appreciate Neurology Input Started on Thiamine (5) AWAIS (acute kidney injury): Likely dehydration Cr:1.7>>1.10 Received IV fluids avoid nephrotoxic agents as able Monitor renal funciton (6) Elevated troponin: Likely demand ischemia--type II [place] secondary to tachycardia Monitor denies chest pain (7) Lactic acidosis: Management as above (8) Hyponatremia: Likely secondary to dehydration Unknown chronicity Monitor sodium levels Sodium>>129>>132 (9) Hyperglycemia: HbA1C:5.5 (10) DVT prophylaxis: IV Heparin Code Status DNI/DNR Disposition PT/OT To be determined Admission and Anticipated Discharge Date Admission Date: June 23, 2020 Subjective Patient is seen and examined at bedside Oriented to person, place only Patient was unsure why he is come to the hospital, does not remember family States having upper extremity weakness Denies chest pain, shortness of breath, dizziness, nausea, abdominal pain Offers no other complaints Review of Systems Review of Systems: All systems reviewed & are unremarkable except as noted in HPI & below Physical Exam Physical Exam: Physical Exam: Vitals signs as noted above General Appearance:Thin, Cachectic, no apparent distress Head: normocephalic, Atraumatic Eyes: normal inspection, EOMI Neck: supple, Trachea midline Respiratory/Chest: Normal breath sounds, CTA, No accessory muscle use Cardiovascular: Irregularly irregular, tachycardic, No murmur Abdomen/GI:Soft, Non tender, Bowel sounds present Extremities/Musculoskelatal:normal inspection, 1+ B/L LE edema Neurologic/Psych: Oriented to person and place only. UE weakness RUE> LUE, +Confusion Skin: normal color, warm, Left foot blister due to edema Results & Data Results & Data ([facility]) Vital Signs (Past 12 Hours) Vital Signs Temp Pulse Pulse Resp BP BP Pulse Ox 06/24/20 18:01 140 H 117/85 06/24/20 16:13 36.3 C L 142 H 18 113/87 98 06/24/20 12:50 36.2 C L 142 H 20 114/78 98 06/24/20 08:00 140 H 06/24/20 07:47 36.7 C 140 H 20 102/62 94 Laboratory Results Short CBC 06/24/20 Range/Units 06:25 WBC 10.48 (4.8-10.8) K/uL Hgb 12.3 L (14.0-18.0) g/dL Hct 36.5 L (42-52) % Plt Count 130 (130-400) K/uL BMP 06/23/20 06/24/20 19:40 06:25 Sodium 132 L 132 L Potassium 3.9 4.2 Chloride 99 100 Carbon Dioxide 26 26 BUN 39 H 31 H Creatinine 1.16 D 1.10 Glucose 108 H 120 H Calcium 8.3 L 7.9 L Cardiac Enzymes 06/23/20 Range/Units 23:02 Troponin I 0.160 H* (0-0.045) ng/ml Urine 06/24/20 Range/Units 02:20 Urine Color Dark Yellow Urine Appearance Clear (Clear) Urine pH 5.0 (4.5-7.5) Ur Specific [place] 1.038 H (1.000-1.030) Urine Protein Trace H (Negative) Urine Glucose (UA) Negative (Negative)
[2020-06-24] MEDS: THIAMINE HCL 100 MG TAB PO SCH (22:20)
[2020-06-24 23:26] LABS: Partial Thromboplastin Ratio 2.6
[2020-06-24 23:28] LABS: Partial Thromboplastin Time 72.6 Seconds (21.0-31.0)
[2020-06-25] MEDS: METOPROLOL TARTRATE 1 MG/ML VIAL IV SCH ×3 (01:16→12:23)
[2020-06-25] MEDS: AMIODARONE / D5W 360 MG/200 ML BAG IV SCH ×2 (05:07→17:24)
[2020-06-25 05:58] LABS: Eosinophils # (auto) 0.01 K/uL (0-0.5); Eosinophils % (auto) 0.1 %; Hematocrit (blood only) 37.7 % (42-52); Hemoglobin 12.7 g/dL (14.0-18.0); Immature Granulocytes # (auto) 0.07 K/uL (0.00-0.02); Immature Granulocytes % (auto) 0.7 %; Lymphocytes # (auto) 1.09 K/uL (1.2-3.4); Lymphocytes % (auto) 11.5 %; Mean Corpuscular Hemoglobin 31.5 pg (25-34); Mean Corpuscular Hgb Conc 33.7 g/dL (32-36); Mean Corpuscular Volume 93.5 fL (80-100); Mean Platelet Volume 10.4 fL (7.4-10.4); Monocytes # (auto) 0.82 K/uL (0.11-0.59); Monocytes % (auto) 8.7 %; Neutrophils # (auto) 7.48 K/uL (1.4-6.5); Platelet Count 148 K/uL (130-400); RDW Standard Deviation 51.1 fL (36.4-46.3); Red Blood Count 4.03 M/uL (4.7-6.1); White Blood Count 9.47 K/uL (4.8-10.8)
--- NOTE | 2020-06-25 06:08 | Electrocardiogram Report ---
Test Reason : Blood Pressure : / mmHG Vent. Rate : 141 BPM Atrial Rate : 282 BPM P-R Int : 000 ms QRS Dur : 082 ms QT Int : 270 ms P-R-T Axes : 083 058 245 degrees QTc Int : 413 ms Atrial flutter with 2:1 A-V conduction Septal infarct (cited on or before 23-JUN-2020) Abnormal ECG When compared with ECG of 23-JUN-2020 11:10, Questionable change in QRS duration Questionable change in initial forces of Anterior leads Confirmed by Amarjit Thurman ([id number]) on 06/25/2020 6:08:26 AM Referred By: REFERRED SELF Confirmed By:Amarjit Thurman
[2020-06-25 06:17] LABS: BUN Creatinine Ratio 25.3 (10-20); Calcium 7.9 mg/dl (8.5-10.1); Creatinine Clr Calc Pharmacy 52.6 ml/min; Est GFR (African American) 92.9; Est GFR (Non-African American) 80.2; Magnesium 2.1 mg/dl (1.8-2.4); Potassium 3.9 mmol/L (3.5-5.1)
[2020-06-25 06:19] LABS: Partial Thromboplastin Ratio 2.4
[2020-06-25 06:31] LABS: Partial Thromboplastin Time 66.9 Seconds (21.0-31.0)
[2020-06-25] MEDS: DOXYCYCLINE HYCLATE 100 MG CAP PO SCH (08:43)
[2020-06-25] MEDS: THIAMINE HCL 100 MG TAB PO SCH (08:44)
[2020-06-25] MEDS: FOLIC ACID 1 MG TAB PO SCH (10:16)
--- NOTE | 2020-06-25 10:48 | Electrocardiogram Report ---
Test Reason : Blood Pressure : / mmHG Vent. Rate : 141 BPM Atrial Rate : 141 BPM P-R Int : 164 ms QRS Dur : 092 ms QT Int : 268 ms P-R-T Axes : 093 064 228 degrees QTc Int : 410 ms Atrial flutter Anteroseptal infarct (cited on or before 23-JUN-2020) Abnormal ECG When compared with ECG of 24-JUN-2020 06:38, There are some minor ST segement changes in the anterior leads. Confirmed by Edilson De La Torre ([id number]) on 06/25/2020 10:48:35 AM Referred By: REFERRED SELF Confirmed By:Gerry De La Torre
--- NOTE | 2020-06-25 12:48 | Magnetic Resonance Report ---
MRI OF THE BRAIN WITHOUT IV CONTRAST CLINICAL HISTORY: Right pronator drift. Loss of coordination. Change in mental status. COMPARISON STUDY: CT of the brain dated 06/23/2020. TECHNIQUE: MRI of the brain was performed utilizing various T1 and T2-weighted sequences in the axial , sagittal, and coronal planes. IV contrast was not administered for this examination. The examinatio n is severely compromised by motion artifact. FINDINGS: Brain parenchyma: There is age-related involutional change noting advanced confluent subcortical and periventricular microangiopathic disease. There is no hemorrhage or mass effect. There is no restrict ed diffusion to suggest acute ischemia. A chronic lacunar infarct is seen in the left akshat. Rainey-whit e matter differentiation is preserved. No extra-axial fluid collection is seen. The cerebellar tonsil s are normal in configuration. Ventricles, sulci, and cisterns: Prominent secondary to uncovertebral change. Pituitary and sella: Unremarkable. Intracranial vasculature: Normal flow voids are maintained at the skull base. Orbits: The bony orbits are grossly intact. Orbital contents are normal in appearance. Sinuses and mastoids: Clear. Calvarium: Unremarkable. Cervical cord: Partially visualized cervical spinal cord is normal in morphology and signal intensity . IMPRESSION: No acute intracranial abnormality is identified noting a significantly motion compromised examination. ACT 112: Negative or not required by law. Electronically signed by: Wilber Sommer M.D. 06/25/2020 12:47 PM
[2020-06-25 13:03] LABS: Partial Thromboplastin Ratio 1.7
[2020-06-25 13:10] LABS: Partial Thromboplastin Time 46.8 Seconds (21.0-31.0)
--- NOTE | 2020-06-25 13:11 | Communication Note ---
Date of Service: June 25, 2020 Chucky looks a little better today he knows he is in the hospital thinks he is in [place], does not know the year or the month but is pleasant slightly dysarthric and is a little more cooperative with examination of his right arm. Today I think his deltoid function is normal his biceps seems to be normal and weakness seems to involve the triceps, wrist and finger extensors, the brachial radialis, and knee external rotators of the forearm and spares median and ulnar innervated muscles so is looking more like a very high right radial mononeuropa thy rather than a plexopathy but the distinction is often difficult and to some degree is academic The MRI was degraded in terms of motion artifact but did not show any acute or subacute infarctions and only demonstrated the confluent white matter disease which is impressive and in my opinion probably is the basis for this man's cognitive impairment at baseline which is undoubtedly been complicated by toxic/metabolic encephalopathy The lack of evidence for recent infarctions does not change the indications for anticoagulation here with the underlying atrial fibrillation/flutter and the very low ejection fraction cardiomyopathy but I do not see any need to add aspirin at this point as long as he might be a candidate for a novel anticoagulant Cardiology of course is going to have to make the ultimate decision here but the etiology of the right arm weakness lies I believe in the peripheral nervous system at the level of the radial nerve and is not part of a cerebrovascular event At some point he probably should have an EMG of the right arm but this can be done on an outpatient basis While he is improved I really doubt that he is going to be capable of returning to his home and is going to need at least assisted living and possibly an extended care facility I will check back on him tomorrow on him in the hospital but at this point I do not think neurology is a lot more to offer than the above suggestions George Sanabria MD
--- NOTE | 2020-06-25 13:46 | Cardiology Progress Note ---
Date of Service June 25, 2020 Assessment & Plan (1) Atrial flutter with rapid ventricular response: Patient with ongoing atrial flutter with rapid ventricular response. Baseline TSH and liver function test within normal limits on 06/23/2020. Continue IV amiodarone, add oral amiodarone 200 mg twice daily. Discontinue IV metoprolol, and add oral metoprolol tartrate 25 mg by mouth 4 times daily as tolerated if he is able to take oral medications. In terms of stroke prophylaxis, continue unfractionated heparin. Add Coumadin. I believe this will likely be the outpatient agent of choice for him due to cost considerations. Is difficult to determine the acuity versus chronicity of the atrial flutter. Anticipate transesophageal echocardiogram guided direct-current cardioversion may be indicated. SARS-CoV-2 Ag test negative of 06/23/20. Continue ongoing conservative therapy for now, pending hopeful improvement in his mental status prior to anesthesia. (2) Severe left ventricular systolic dysfunction: Newly recognized severe left ventricular systolic dysfunction noted on echocardiogram, left ventricular ejection fraction in the range of 20 to 25%. Anteroseptal Q waves noted on EKG. Possible underlying ischemic cardiomyopathy perhaps with superimposed tachycardia to his cardiomyopathy component. Patient is not volume overloaded at present. Ultimately, evidence-based medication for cardiomyopathy such as STAR inhibitor or ARB, but for now will focus on the metoprolol given the tachycardia. (3) Acute metabolic encephalopathy: No intracranial hemorrhage noted on presenting CT of the brain. MRI of the brain reveals chronic lacunar infarction in the left akshat. I do not think this explains the patient's symptoms. We will add low-dose aspirin to heparin plus Coumadin. Admission and Anticipated Discharge Date Admission Date: June 23, 2020 Subjective Patient seen in follow-up. He remains confused but conversant. Right upper extremity weakness/clumsiness noted, he is unable to show me two fingers unless he uses his left hand to assist. Telemetry reveals ongoing atrial flutter with rapid ventricular response in the range of 140 bpm despite IV amiodarone and IV metoprolol. Review of Systems Review of Systems: Unobtainable due to cognitive status Physical Exam Physical Exam: Temp Pulse Resp BP Pulse Ox 36.5 C 137 H 20 116/88 99 06/25/20 13:07 06/25/20 13:07 06/25/20 13:07 06/25/20 13:07 06/25/20 13:07 Constitutional: Chronically ill in appearance without acute distress Respiratory: normal respiratory effort, lungs clear to auscultation Cardiovascular: Rate/Rhythm: + tachycardic Heart Sounds: no murmur Vessels: no JVD Extremities: no edema Gastrointestinal (Abdomen): normal bowel sounds, soft, nontender, no hepatosplenomegaly Neurologic: Cognitive impairment noted, does follow commands, right arm weakness/clumsiness Results & Data ([facility]) Vital Signs (Past 12 Hours) Vital Signs Temp Pulse Pulse Resp BP BP Pulse Ox 06/25/20 13:07 36.5 C 137 H 20 116/88 99 06/25/20 12:23 140 H 121/90 06/25/20 12:22 36.4 C L 140 H 18 121/90 99 06/25/20 07:53 36.6 C 140 H 20 103/64 96 06/25/20 05:56 139 H 107/69 06/25/20 03:46 36.4 C L 139 H 18 103/75 99
[2020-06-25] MEDS: ASPIRIN 81 MG ECTAB PO SCH (14:21)
[2020-06-25 15:05] LABS: INR 1.2 (0.9-1.1); Prothrombin Time 12.1 Seconds (9.0-12.0)
[2020-06-25] MEDS: METOPROLOL TARTRATE 25 MG TAB PO SCH ×2 (17:25→20:38)
[2020-06-25] MEDS: WARFARIN SOD 2.5 MG TAB PO SCH (17:25)
--- NOTE | 2020-06-25 19:35 | Hospitalist Progress Note ---
Date of Service June 25, 2020 Assessment & Plan (1) SIRS (systemic inflammatory response syndrome): (2) Acute metabolic encephalopathy: (3) Atrial flutter with rapid ventricular response: Patient is an 79 yr male with unknown PMH and does not follow with regular PCP who presents to ED with POA/granddaughter secondary to change in mental status and weakness for unknown duration. Atrial Flutter with RVR Normal TSH ECHO: EF 20 to 25%. Right ventricle systolic function is normal. Left atrium size is normal. Right atrial size is normal. There is mild mitral regurgitation. IV Cardizem drip discontinued. Also received digoxin. Also received Adenosine Continue IV amiodarone Continue IV heparin, added coumadin Started on oral amiodarone and Metoprolol Appreciate cardiology input Monitor INR May need MEHDI Cardioversion Possible Severe Sepsis Lactic acidosis Unclear source Blood Cx: No growth to date UA not suggestive of UTI Chest x-ray showed no acute process Received gentle IV fluids Blood pressure improved Given significant reduced EF, will reassess frequently for volume status Discontinue empiric Rocephin, doxycycline Will monitor off Abx (4) Stroke-like symptom: Acute metabolic encephalopathy Strokelike symptoms--Acute CVA ruled out CT Head: No acute intracranial findings Head CTA:No central vessel occlusion. Dominant, patent left vertebral artery. 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 Neck CTA:No evidence of hemodynamically significant carotid stenosis. Dominant left vertebral artery. Distal right vertebral artery stenosis. 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 There is no hemorrhage or mass effect. There is no restricted diffusion to suggest acute ischemia. A chronic lacunar infarct is seen in the left akshat. Rainey-white matter differentiation is preserved. No extra-axial fluid collection is seen. The cerebellar tonsils are normal in configuration. May need EMG as outpatient LDL:61 Thiamine Levels:pending Folic acid: 3.0 (Low) B12 levels: Normal Normal TSH Speech eval Started on Aspirin 81mg daily given old CVA on MRI Appreciate Neurology Input Continue Thiamine, folic acid (5) AWAIS (acute kidney injury): Likely dehydration Cr:1.7>>1.10>0.89 Received IV fluids avoid nephrotoxic agents as able Monitor renal funciton (6) Elevated troponin: Likely demand ischemia--type II [place] secondary to tachycardia Monitor denies chest pain (7) Lactic acidosis: Management as above (8) Hyponatremia: Likely secondary to dehydration Unknown chronicity Monitor sodium levels Sodium>>129>>132>131 (9) Hyperglycemia: HbA1C:5.5 (10) DVT prophylaxis: IV Heparin Code Status DNI/DNR Disposition PT/OT To be determined Admission and Anticipated Discharge Date Admission Date: June 23, 2020 Subjective Patient is seen and examined at bedside Less confused today Persistent RUE weakness No new complaints MRI brain showed old lacunar Infarct Discussed with Cardiology today Remains Tachycardic in flutter on monitor Denies chest pain, shortness of breath, dizziness, nausea, abdominal pain Review of Systems Review of Systems: All systems reviewed & are unremarkable except as noted in HPI & below Physical Exam Physical Exam: Physical Exam: Vitals signs as noted above General Appearance:Thin, Cachectic, no apparent distress Head: normocephalic, Atraumatic Eyes: normal inspection, EOMI Neck: supple, Trachea midline Respiratory/Chest: Normal breath sounds, CTA, No accessory muscle use Cardiovascular: Irregularly irregular, tachycardic, No murmur Abdomen/GI:Soft, Non tender, Bowel sounds present Extremities/Musculoskelatal:normal inspection, 1+ B/L LE edema Neurologic/Psych: Oriented to person and place only. UE weakness RUE> LUE, +Confusion Skin: normal color, warm, Left foot blister due to edema Results & Data Results & Data ([facility]) Vital Signs (Past 12 Hours) Vital Signs Temp Pulse Pulse Resp BP BP Pulse Ox 06/25/20 18:21 138 H 06/25/20 16:50 36.4 C L 138 H 20 112/81 99 06/25/20 13:07 36.5 C 137 H 20 116/88 99 06/25/20 12:23 140 H 121/90 06/25/20 12:22 36.4 C L 140 H 18 121/90 99 06/25/20 08:00 140 H 06/25/20 07:53 36.6 C 140 H 20 103/64 96 Laboratory Results Short CBC 06/25/20 Range/Units 05:34 WBC 9.47 (4.8-10.8) K/uL Hgb 12.7 L (14.0-18.0) g/dL Hct 37.7 L (42-52) % Plt Count 148 (130-400) K/uL BMP 06/25/20 05:34 Sodium 131 L Potassium 3.9 Chloride 98 Carbon Dioxide 28 BUN 23 H Creatinine 0.89 Glucose 96 Calcium 7.9 L
[2020-06-25] MEDS: AMIODARONE 200 MG TAB PO SCH (20:38)
[2020-06-26] MEDS: AMIODARONE / D5W 360 MG/200 ML BAG IV SCH ×2 (03:00→14:39)
[2020-06-26 06:47] LABS: Eosinophils # (auto) 0.01 K/uL (0-0.5); Eosinophils % (auto) 0.1 %; Hematocrit (blood only) 39.8 % (42-52); Hemoglobin 13.5 g/dL (14.0-18.0); Immature Granulocytes % (auto) 1.1 %; Lymphocytes % (auto) 10.8 %; Mean Corpuscular Hemoglobin 31.9 pg (25-34); Mean Corpuscular Hgb Conc 33.9 g/dL (32-36); Mean Corpuscular Volume 94.1 fL (80-100); Mean Platelet Volume 10.6 fL (7.4-10.4); Monocytes # (auto) 1.05 K/uL (0.11-0.59); Monocytes % (auto) 11.4 %; Neutrophils # (auto) 7.06 K/uL (1.4-6.5); Neutrophils % (auto) 76.6 %; Platelet Count 169 K/uL (130-400); RDW Coefficient of Variation 15.1 % (11.5-14.5); RDW Standard Deviation 50.8 fL (36.4-46.3); Red Blood Count 4.23 M/uL (4.7-6.1); White Blood Count 9.22 K/uL (4.8-10.8)
[2020-06-26 07:13] LABS: INR 1.2 (0.9-1.1); Partial Thromboplastin Ratio 1.8; Prothrombin Time 12.6 Seconds (9.0-12.0)
[2020-06-26 07:27] LABS: BUN Creatinine Ratio 23.4 (10-20); Calcium 8.2 mg/dl (8.5-10.1); Creatinine Clr Calc Pharmacy 49.2 ml/min; Est GFR (African American) 85.6; Est GFR (Non-African American) 73.8; Magnesium 1.9 mg/dl (1.8-2.4); Potassium 3.8 mmol/L (3.5-5.1)
[2020-06-26] MEDS ORDERED: SODIUM CHLORIDE 0.9% 1000ML 1,000 ML IV ONE (08:16)
[2020-06-26] MEDS: THIAMINE HCL 100 MG TAB PO SCH (08:19)
[2020-06-26] MEDS: METOPROLOL TARTRATE 25 MG TAB PO SCH ×4 (08:19→21:08)
[2020-06-26] MEDS: FOLIC ACID 1 MG TAB PO SCH (08:19)
[2020-06-26] MEDS: ASPIRIN 81 MG ECTAB PO SCH (08:19)
[2020-06-26] MEDS: AMIODARONE 200 MG TAB PO SCH ×2 (08:19→21:08)
--- NOTE | 2020-06-26 10:46 | Cardiology Progress Note ---
Date of Service June 26, 2020 Assessment & Plan (1) Atrial flutter with rapid ventricular response: (2) Severe left ventricular systolic dysfunction: (3) Tachycardia induced cardiomyopathy: (4) Acute metabolic encephalopathy: Mental status trending toward improvement. Remains in atrial flutter with rapid ventricular response despite several days of IV amiodarone, with oral amiodarone and metoprolol added yesterday. Patient is hemodynamically stable, and while MEHDI guided cardioversion procedure is not emergent, it is considered medically necessary with ongoing tachycardia since arrival on 06/23/20 refractory to IV diltiazem, IV amiodarone. Pt remains on heparin infusion. Coumadin added 06/25/20 , INR 1.2 today. Will plan for MEHDI guided CV on 06/27/20, pending assessment by anesthesia. Case discussed by phone with Dr Soliman of anesthesia. COVID -19 screen negative on 06/23/20. Consent for MEHDI and cardioversion obtained verbally from patient, and per his request via phone concersation with POA, granddaughter, , Yoselyn Hartman, . Admission and Anticipated Discharge Date Admission Date: June 23, 2020 Subjective Pt without acute complaint. Telemetry reveals ongoing atrial flutter with RVR, in the 130s. Review of Systems Review of Systems: All systems reviewed & are unremarkable except as noted in HPI & below Physical Exam Physical Exam: Temp Pulse Resp BP Pulse Ox 36.5 C 76 20 118/87 99 06/26/20 10:40 06/26/20 10:40 06/26/20 10:40 06/26/20 10:40 06/26/20 10:40 Constitutional: Chronically ill in appearance without acute distress ENMT: Dentures , top and bottom Respiratory: normal respiratory effort, lungs clear to auscultation Cardiovascular: Rate/Rhythm: + tachycardic Heart Sounds: no murmur Vessels: no JVD Extremities: no edema Gastrointestinal (Abdomen): normal bowel sounds, soft, nontender, no hepatosplenomegaly Neurologic: mentation improving, ongoing right arm weakness Results & Data ([facility]) Vital Signs (Past 12 Hours) Vital Signs Temp Pulse Pulse Resp BP Pulse Ox 06/26/20 10:40 36.5 C 76 20 118/87 99 06/26/20 07:00 36.7 C 132 H 17 119/87 99 12/20/20 03:44 36.3 C L 131 H 18 122/93 100 06/25/20 23:59 134 H 06/25/20 23:39 36.8 C 131 H 19 114/85 99 Laboratory Results Coagulation 06/25/20 06/25/20 06/26/20 Range/Units 12:33 12:33 06:12 PT 12.1 H 12.6 H (9.0-12.0) Seconds APTT 46.8 H* 51.0 H* (21.0-31.0) Seconds INR 1.2 CBC 06/26/20 Range/Units 06:12 WBC 9.22 (4.8-10.8) K/uL RBC 4.23 L (4.7-6.1) M/uL Hgb 13.5 L (14.0-18.0) g/dL Hct 39.8 L (42-52) % Plt Count 169 (130-400) K/uL Neut # (Auto) 7.06 H (1.4-6.5) K/uL Lymph # (Auto) 1.00 L (1.2-3.4) K/uL [place] # (Auto) 1.05 H (0.11-0.59) K/uL Eos # (Auto) 0.01 (0-0.5) K/uL Baso # (Auto) 0.00 (0-0.2) K/uL Comprehensive Metabolic Panel 06/26/20 Range/Units 06:12 Sodium 130 L (136-145) mmol/L Potassium 3.8 (3.5-5.1) mmol/L Chloride 96 L (98-107) mmol/L Carbon Dioxide 27 (21-32) mmol/L BUN 22 H (7-18) mg/dl Creatinine 0.96 (0.6-1.4) mg/dl Glucose 84 (70-99) mg/dl Calcium 8.2 L (8.5-10.1) mg/dl Intake and Output 06/25/20 06/26/20 06/26/20 22:59 06:59 14:59 Intake Total 566.043 / 1564.753 210.32 / 1564.753 Output Total 100 / 550 100 / 550 Balance 466.043 / 1014.753 110.32 / 1014.753 Intake: IV 166.043 / 434.753 160.32 / 434.753 NEXTERONE / D5W 360 mg In 200 166.043 / 360.320 160.32 / 360.320 ml @ 0.5 MG/MIN 16.667 mls/hr IV .Q12H [facility] Rx#:[id number] Oral 400 / 1130 50 / 1130 Output: Urine Amount (Catheter) 100 / 200 100 / 200 Lynn/Indwelling 100 / 200 100 / 200 Other: Weight 57.6 kg Weight Measurement Method Built in [facility]
--- NOTE | 2020-06-26 13:07 | XRay Report ---
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 There is moderate so ft tissue swelling which is most pronounced within the dorsal lateral distal upper arm, elbow, proxim al and mid forearm. There is no opaque foreign body or large joint effusion. IMPRESSION: Soft tissue swelling without acute fracture or dislocation. ACT 112: Negative or not required by law. The above report was generated using voice recognition software. It may contain grammatical, syntax o r spelling errors. Electronically signed by: Chente Saucedo M.D. 06/26/2020 1:05 PM
--- NOTE | 2020-06-26 13:08 | XRay Report ---
XR wrist RT 2V HISTORY: 79 years-old Male Fall, R/O fracture acute right wrist pain status post fall COMPARISON: None TECHNIQUE: 2 views of the right wrist FINDINGS: Overlying IV catheter limits the study. Arterial calcifications. Mild multifocal osteoarthritis witho ut acute fracture or dislocation. IMPRESSION: No acute fracture or dislocation. ACT 112: Negative or not required by law. The above report was generated using voice recognition software. It may contain grammatical, syntax o r spelling errors. Electronically signed by: Chente Saucedo M.D. 06/26/2020 1:07 PM
--- NOTE | 2020-06-26 13:11 | Communication Note ---
Date of Service: June 26, 2020 Mr. Paredes is a little better today in terms of his mental status but still is disoriented to place and to some degree time. Is much more pleasant more interactive and is trying to use the right arm for purposes of examination in a much more cooperative fashion. It still appears that this is a high radial nerve palsy with weakness of the triceps and all distal radial innervated muscles but it also appears that the finger extensors and wrist extensors the brachioradialis and the external rotators of the forearm are stronger than they were 2 days ago so there may be an element of a demyelinating lesion rather than axonal 1 here. The triceps still appears to be quite weak The rest of the examination is pretty nonfocal with the exception of the encephalopathy I think this correlates very nicely with the presence of a toxic metabolic process superimposed upon a very impressive ischemic leukoencephalopathy without evidence for any acute recent infarctions Cardiology is addressing the chronic atrial fibrillation/atrial flutter and a transesophageal echo is being scheduled He is on heparin switching over to Coumadin I see no role for antiplatelet agents here superimposed upon the Coumadin as this would add to his risk of bleeding and I suspect he is going to be a fall risk in the future Neurology at this point does not have a lot more to offer other than suggestions for an outpatient EMG of the right upper extremity and this can be done anytime in the next 6 to 8 weeks Social service needs to plan for placement and is possible he may need some interim rehabilitation I am going to sign off the case at this point as I do not think we are adding any value but will be most happy to reassess him should things change during the course of his subsequent hospital stay George Sanabria MD
--- NOTE | 2020-06-26 13:11 | XRay Report ---
XR shoulder RT min 2V routine HISTORY: 79 years-old Male Fall, R/O fracture acute right shoulder pain status post fall COMPARISON: Chest radiograph 06/23/2020 TECHNIQUE: 2 views of the right shoulder FINDINGS: Mild to moderate glenohumeral with moderate AC joint osteoarthritis. Decreased coracohumeral interval with spurring of the greater tuberosity suggestive of subacromial impingement. No acute fracture or dislocation. The imaged lung lyman appear clear. IMPRESSION: No acute fracture or dislocation. ACT 112: Negative or not required by law. The above report was generated using voice recognition software. It may contain grammatical, syntax o r spelling errors. Electronically signed by: Chente Saucedo M.D. 06/26/2020 1:10 PM
--- NOTE | 2020-06-26 13:38 | Anesthesiology Consultation ---
Date of Service June 26, 2020 Assessment & Plan Chart Review Chart Review: Acceptable Risk for Surgery and Patient NOT seen in Pre Admission Testing History Height/Weight Height: 5 ft 8 in Weight: 57.6 kg Allergies Allergy/AdvReac Type Severity Reaction Status Date / Time No Known Allergies Allergy Unverified 06/23/20 13:19 Medications Home Medications Medication Instructions Recorded Confirmed Last Taken No Known Home Medications 06/23/20 06/23/20 Unknown Active Medications Generic Name Dose Route Start Last Admin Trade Name Elijahq PRN Reason Stop Dose Admin Amiodarone HCl 200 mg 06/25/20 21:00 06/26/20 08:19 Amiodarone 200 Mg Tab PO 07/25/20 20:59 200 mg BID JACQUE Administration Aspirin 81 mg 06/25/20 13:15 06/26/20 08:19 Aspirin 81 Mg Ectab PO 07/25/20 13:14 81 mg QAM JACQUE Administration Folic Acid 1 mg 06/25/20 09:45 06/26/20 08:19 Folic Acid 1 Mg Tab PO 07/25/20 09:44 1 mg QAM JACQUE Administration Heparin Sodium/Dextrose 25,000 units in 500 mls @ 12 mls/hr 06/23/20 15:18 06/25/20 13:18 Heparin Sodium/Dextrose IV 07/23/20 15:17 550 units/hr .Q24H JACQUE 11 mls/hr Titration Protocol 600 UNITS/HR Amiodarone HCl/Dextrose 360 mg in 200 mls @ 16.667 mls/hr 06/24/20 05:00 06/26/20 03:00 Nexterone / D5w IV 07/24/20 04:59 0.5 mg/min .Q12H JACQUE 16.7 mls/hr Administration 0.5 MG/MIN Metoprolol Tartrate 25 mg 06/25/20 17:00 06/26/20 12:22 Metoprolol Tartrate 25 Mg Tab PO 07/25/20 16:59 25 mg QID JACQUE Administration Thiamine HCl 100 mg 06/24/20 19:15 06/26/20 08:19 Thiamine Hcl 100 Mg Tab PO 07/24/20 19:14 100 mg QAM JACQUE Administration Warfarin Sodium 2.5 mg 06/25/20 16:00 06/25/20 17:25 Warfarin Sod 2.5 Mg Tab PO 07/25/20 15:59 2.5 mg DAILY@1600 JACQUE Administration Past Medical History Medical History No significant past medical history Past Family History Family History Other Unknown family medical history Past Surgical History Surgical History History of knee surgery left Social History Smoking Status: Never smoker Hx Alcohol Use: No Hx Substance Use: No Physical Exam Vital Signs Last Vital Signs Temp 36.5 C 06/26/20 10:40 Pulse 76 06/26/20 10:40 Resp 20 06/26/20 10:40 BP 118/87 06/26/20 10:40 Pulse Ox 99 06/26/20 10:40 Testing Laboratory Results 06/26/20 06:12 06/26/20 06:12 PT 12.6 Seconds (9.0-12.0) H 06/26/20 06:12 INR 1.2 (0.9-1.1) H 06/26/20 06:12 APTT 51.0 Seconds (21.0-31.0) H* 06/26/20 06:12 Hemoglobin A1c 5.5 % (4.5-5.6) 06/24/20 06:25 Urine Color Dark Yellow 06/24/20 02:20 Urine Appearance Clear (Clear) 06/24/20 02:20 Urine pH 5.0 (4.5-7.5) 06/24/20 02:20 Ur Specific [place] 1.038 (1.000-1.030) H 06/24/20 02:20 Urine Protein Trace (Negative) H 06/24/20 02:20 Urine Glucose (UA) Negative (Negative) 06/24/20 02:20 Urine Ketones Trace (Negative) H 06/24/20 02:20 Urine Nitrite Negative (Negative) 06/24/20 02:20 Ur Leukocyte Esterase Trace (Negative) H 06/24/20 02:20 Urine WBC (Auto) 1-5 /hpf (0-5) 06/24/20 02:20 Urine RBC (Auto) 10-30 /hpf (0-4) H 06/24/20 02:20 U Hyaline Cast (Auto) 1-5 /lpf (0-5) 06/24/20 02:20 U Epithel Cells (Auto) >30 /lpf (0-5) H 06/24/20 02:20 Urine Bacteria (Auto) Negative (Negative) 06/24/20 02:20 Blood Type O Positive 06/23/20 11:53 Antibody Screen NEGATIVE 06/23/20 11:53 06/23/20 11:54 Aerobic Blood Culture - Preliminary Blood No growth in Aerobic bottle after 48 hours. Anaerobic Blood Culture - Preliminary No growth in Anaerobic bottle after 48 hours. 06/23/20 11:53 Aerobic Blood Culture - Preliminary Blood No growth in Aerobic bottle after 48 hours. Anaerobic Blood Culture - Preliminary No growth in Anaerobic bottle after 48 hours. 06/26/20 11:11 POC Glucose 92 Electrocardiogram Date: 06/25/20 Findings: + AFIB @ (a flutter @144) Echocardiogram Date: 06/24/20 EF: 20-25 LV Function: dysfunctional
--- NOTE | 2020-06-26 15:41 | Hospitalist Progress Note ---
Date of Service June 26, 2020 Assessment & Plan (1) SIRS (systemic inflammatory response syndrome): (2) Acute metabolic encephalopathy: (3) Atrial flutter with rapid ventricular response: Patient is an 79 yr male with unknown PMH and does not follow with regular PCP who presents to ED with POA/granddaughter secondary to change in mental status and weakness for unknown duration. Atrial Flutter with RVR Normal TSH ECHO: EF 20 to 25%. Right ventricle systolic function is normal. Left atrium size is normal. Right atrial size is normal. There is mild mitral regurgitation. IV Cardizem drip discontinued. Also received digoxin. Also received Adenosine Continue IV amiodarone Continue IV heparin, added coumadin Started on oral amiodarone and Metoprolol Appreciate cardiology input Monitor INR:1.2 Planned for MEHDI Cardioversion tomorrow NPO after midnight Possible Severe Sepsis Lactic acidosis Unclear source Blood Cx: No growth to date UA not suggestive of UTI Chest x-ray showed no acute process Received gentle IV fluids Blood pressure improved Given significant reduced EF, will reassess frequently for volume status Discontinue empiric Rocephin, doxycycline Will monitor off Abx (4) Stroke-like symptom: Acute metabolic encephalopathy Strokelike symptoms--Acute CVA ruled out CT Head: No acute intracranial findings Head CTA:No central vessel occlusion. Dominant, patent left vertebral artery. 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 Neck CTA:No evidence of hemodynamically significant carotid stenosis. Dominant left vertebral artery. Distal right vertebral artery stenosis. 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 There is no hemorrhage or mass effect. There is no restricted diffusion to suggest acute ischemia. A chronic lacunar infarct is seen in the left akshat. Rainey-white matter differentiation is preserved. No extra- axial fluid collection is seen. The cerebellar tonsils are normal in configuration. -X ray RUE showed no acute fractures May need EMG as outpatient LDL:61 Thiamine Levels:pending Folic acid: 3.0 (Low) B12 levels: Normal Normal TSH Speech eval Started on Aspirin 81mg daily given old CVA on MRI Appreciate Neurology Input Continue Thiamine, folic acid (5) AWAIS (acute kidney injury): Likely dehydration Cr:1.7>>1.10>0.89 Received IV fluids avoid nephrotoxic agents as able Monitor renal function Cautious use of IV fluids as needed given low EF (6) Elevated troponin: Likely demand ischemia--type II AR secondary to tachycardia Monitor denies chest pain (7) Lactic acidosis: Management as above (8) Hyponatremia: Likely secondary to dehydration Unknown chronicity Monitor sodium levels Sodium>129>132>131>130 Gentle IV fluids given very low EF (9) Hyperglycemia: HbA1C:5.5 (10) DVT prophylaxis: IV Heparin Code Status DNI/DNR Disposition PT/OT To be determined Admission and Anticipated Discharge Date Admission Date: June 23, 2020 Subjective Patient is seen and examined at bedside Mental status/confusion slowly resolving No new complaints Planned for Cardioversion tomorrow Discussed with Cardiology and Neurology today X rays of RUE showed no fractures. Denies chest pain, shortness of breath, dizziness, nausea, abdominal pain Has low urine outpatient Review of Systems Review of Systems: All systems reviewed & are unremarkable except as noted in HPI & below Physical Exam Physical Exam: Physical Exam: Vitals signs as noted above General Appearance:Thin, Cachectic, no apparent distress Head: normocephalic, Atraumatic Eyes: normal inspection, EOMI Neck: supple, Trachea midline Respiratory/Chest: Normal breath sounds, CTA, No accessory muscle use Cardiovascular: Irregularly irregular, tachycardic, No murmur Abdomen/GI:Soft, Non tender, Bowel sounds present Extremities/Musculoskelatal:normal inspection, 1+ B/L LE edema, +UE ecchymosis Neurologic/Psych: Oriented to person and place only. UE weakness RUE> LUE, +Confusion better Skin: normal color, warm, Left foot blister due to edema Results & Data Results & Data ([facility]) Vital Signs (Past 12 Hours) Vital Signs Temp Pulse Resp BP Pulse Ox 06/26/20 10:40 36.5 C 76 20 118/87 99 06/26/20 07:00 36.7 C 132 H 17 119/87 99 06/26/20 03:44 36.3 C L 131 H 18 122/93 100 Laboratory Results Short CBC 06/26/20 Range/Units 06:12 WBC 9.22 (4.8-10.8) K/uL Hgb 13.5 L (14.0-18.0) g/dL Hct 39.8 L (42-52) % Plt Count 169 (130-400) K/uL BMP 06/26/20 06:12 Sodium 130 L Potassium 3.8 Chloride 96 L Carbon Dioxide 27 BUN 22 H Creatinine 0.96 Glucose 84 Calcium 8.2 L
[2020-06-26] MEDS: WARFARIN SOD 2.5 MG TAB PO SCH (16:27)
[2020-06-26] MEDS: HEPARIN SODIUM/DEXTROSE 25,000 UNITS/500 ML BAG IV SCH (18:09)
[2020-06-26] MEDS ORDERED: SODIUM CHLORIDE 0.9% 250 ML IV ONE (22:00)
[2020-06-27] MEDS: AMIODARONE / D5W 360 MG/200 ML BAG IV SCH (01:58)
[2020-06-27] MEDS ORDERED: BENZOCAIN/TETRACA/BUTAM SPRAY 200 APPLN/20 GM SPRY EXT ONE (07:15)
[2020-06-27] MEDS ORDERED: KETAMINE 50 MG/5 ML SYRINGE ONE (07:16)
[2020-06-27] MEDS ORDERED: CANNULA ONE (07:16)
[2020-06-27] MEDS ORDERED: PROPOFOL IV EMULSION 10 MG/ML 20 ML VIAL IV ONE (07:16)
[2020-06-27] MEDS ORDERED: LIDOCAINE HCL 2% 2 ML VIAL/AMP(20MG/ML) INFIL ONE (07:16)
[2020-06-27] MEDS ORDERED: ATROPINE SULFATE 0.1 MG/ML 10ML SYR IV PRN (07:33)
[2020-06-27] MEDS ORDERED: ePHEDrine sulfate 50 MG/ML AMP IV PRN (07:33)
--- NOTE | 2020-06-27 08:08 | Cardioversion ---
Date of Service June 27, 2020 Electrical Cardioversion Rpt Electrical Cardioversion Report Date of Surgery June 27, 2020 Pre & Post Diagnosis Preprocedure diagnosis: Symptomatic atrial flutter with rapid ventricular response, severe left ventricular systolic dysfunction Postprocedure diagnosis: No left atrial appendage thrombus, successful direct- current cardioversion to sinus bradycardia Operation Date: 06/27/20 10:00 Procedure Procedure: Transesophageal echocardiogram guided direct-current cardioversion. After informed consent was obtained and a timeout was performed the patient was sedated with the assistance of the anesthesia service receiving a total of 10 mg of IV ketamine, 20 mg of IV propofol, and 60 mg of IV lidocaine. The patient was monitored in standard fashion. A focused transesophageal echocardiogram was performed revealing no evidence of left atrial appendage thrombus. Patient then underwent synchronized direct-current cardioversion receiving 150 J of biphasic energy x1 dose with successful conversion to sinus bradycardia. The post procedure EKG revealed sinus bradycardia 53 bpm with occasional premature atrial contractions. An age-indeterminate anteroseptal infarction pattern was noted, which was similar to that noted on the previous tracings this hospital stay. Due to the patient's generalized frailty, he was monitored closely. Hemodynamics remained stable throughout the procedure. Alterations Sewer Richard Katz DO Hydrotechnical Specialist Liberty Quezada, RCS Estimated Blood Loss 0 Findings Consistent with Post-Op Diagnosis Anesthesia Type MAC Complications none
--- NOTE | 2020-06-27 08:14 | Anesthesiology Progress Note ---
Date of Service June 27, 2020 Anesthesia Post Procedure Vital Signs Vital Signs: Temp Pulse Pulse Resp BP Pulse Ox 06/27/20 08:05 61 16 142/103 H 100 06/27/20 04:10 36.6 C 110 H 18 124/85 95 06/27/20 00:00 120 H 06/26/20 23:22 37 C 119 H 20 117/84 95 06/26/20 19:22 36.6 C 123 H 18 117/88 96 06/26/20 15:56 36.6 C 124 H 18 118/87 96 06/26/20 10:40 36.5 C 76 20 118/87 99 Transfer of Care Handoff Completed per policy Notes Mental Status: alert / awake / arousable Patient Amnestic to Procedure: Yes Nausea / Vomiting: adequately controlled Pain: adequately controlled Airway Patency, RR, SpO2: stable & adequate BP & HR: stable & adequate Hydration State: stable & adequate Anesthetic Complications: no major complications apparent
--- NOTE | 2020-06-27 08:30 | Communication Note ---
Date of Service: June 27, 2020 I called and updated pt's granddaughter, Minnie , with procedure findings. Plan: transfer back to PCU. Holding AV chioma blockers for now due to sinus bradycardia, pending reassessment later this am in PCU. Keep NPO for now until reassessed in an effort to minimize risk of aspiration. Continue IV heparin , PO coumadin. Labs could not be obtained this am, will need to be reattempted. Likely needs IV team to look for another site.
[2020-06-27 09:39] LABS: INR 1.2 (0.9-1.1); Partial Thromboplastin Ratio 1.4; Partial Thromboplastin Time 39.4 Seconds (21.0-31.0); Prothrombin Time 12.7 Seconds (9.0-12.0)
[2020-06-27 09:49] LABS: BUN Creatinine Ratio 20.4 (10-20); Creatinine Clr Calc Pharmacy 48.4 ml/min; Est GFR (African American) 81.4; Est GFR (Non-African American) 70.3; Potassium 3.7 mmol/L (3.5-5.1)
[2020-06-27] MEDS ORDERED: METOPROLOL TARTRATE 25 MG TAB PO SCH (10:00)
--- NOTE | 2020-06-27 10:03 | Cardiology Progress Note ---
Date of Service June 27, 2020 Assessment & Plan (1) Atrial flutter with rapid ventricular response: (2) Severe left ventricular systolic dysfunction: Persistent symptomatic atrial flutter with rapid ventricular response despite treatment with amiodarone, diltiazem, metoprolol earlier this hospital stay. Patient underwent transesophageal echocardiogram guided cardioversion 06/27/2020 successful conversion to sinus rhythm. Sinus bradycardia initially in the 40's noted post cardioversion, sinus bradycardia 53 bpm minute premature atrial contractions noted on post procedure EKG. Now that he is arrived back to the PCU, at rest, while supine in bed, minus rhythm the mid 60s noted. We will advance diet. Cautiously reintroduce AV chioma blockers with planned rhythm control strategy, amiodarone 200 mg p.o. daily, metoprolol tartrate 12.5 mg twice daily. Stroke prophylaxis: No left atrial appendage thrombus noted on transesophageal echocardiogram, however severe hypokinesis of the left atrial appendage was noted, with spontaneous echo contrast. Continue heparin bridge. Transition to Coumadin. Increase dose to 5 mg daily. INR 1.2 today. We will have case management look into the [id number] cost for Eliquis 2.5 mg BID (age >80, Wt of 59 kg). Mild hyponatremia, stable. Ongoing severe left ventricular systolic dysfunction noted at the time of MEHDI this morning views. Given the fact that his EKG reveals an age-indeterminate anteroseptal infarction pattern with anterior Q waves, his left ventricular systolic dysfunction may be multifactorial with underlying coronary heart disease as well as a tachycardia induced cardiomyopathy. Continue medical management, low-dose lisinopril tomorrow. Admission and Anticipated Discharge Date Admission Date: June 23, 2020 Subjective Patient seen in follow-up in the PCU, room 240-2, post transesophageal echocardiogram guided cardioversion this morning. Level of mentation is stable compared to yesterday. No new focal deficits noted. Sinus rhythm the range of 65 to 68 bpm noted while lying supine in bed present without bradycardia. Physical Exam Physical Exam: Temp Pulse Resp BP Pulse Ox 36.8 C 68 18 137/66 96 06/27/20 08:55 06/27/20 08:55 06/27/20 08:55 06/27/20 08:55 06/27/20 08:55 Constitutional: Chronically ill in appearance with no acute distress, frail, thin. Respiratory: normal respiratory effort, lungs clear to auscultation Cardiovascular: RRR, no murmur, no edema Gastrointestinal (Abdomen): normal bowel sounds, soft, nontender, no hepatosplenomegaly Neurologic: Conversant, follows commands, ongoing right upper extremity weakness/clumsiness, otherwise no focal deficits. Results & Data ([facility]) Vital Signs (Past 12 Hours) Vital Signs Temp Pulse Pulse Resp BP Pulse Ox 06/27/20 08:55 36.8 C 68 18 137/66 96 06/27/20 08:40 36.5 C 66 18 132/91 96 06/27/20 08:20 65 16 137/101 H 100 06/27/20 08:05 61 16 142/103 H 100 06/27/20 08:00 68 06/27/20 04:10 36.6 C 110 H 18 124/85 95 06/27/20 00:00 120 H 06/26/20 23:22 37 C 119 H 20 117/84 95 Laboratory Results Coagulation 06/27/20 Range/Units 09:09 PT 12.7 H (9.0-12.0) Seconds APTT 39.4 H (21.0-31.0) Seconds Comprehensive Metabolic Panel 06/27/20 Range/Units 09:09 Sodium 131 L (136-145) mmol/L Potassium 3.7 (3.5-5.1) mmol/L Chloride 96 L (98-107) mmol/L Carbon Dioxide 30 (21-32) mmol/L BUN 20 H (7-18) mg/dl Creatinine 1.00 (0.6-1.4) mg/dl Glucose 87 (70-99) mg/dl Calcium 8.0 L (8.5-10.1) mg/dl Intake and Output 06/26/20 06/27/20 06/27/20 22:59 06:59 14:59 Intake Total 557.35 / 1468.226 438.988 / 1468.226 171.417 / 171.417 Output Total 200 / 450 100 / 450 Balance 357.35 / 1018.226 338.988 / 1018.226 171.417 / 171.417 Intake: IV 317.35 / 1228.226 438.988 / 1228.226 171.417 / 171.417 NEXTERONE / D5W 360 mg In 200 188.988 / 383.543 ml @ 0.5 MG/MIN 16.667 mls/hr IV .Q12H ON LICENSE OF [facility] Rx#:[id number] HEPARIN SODIUM/DEXTROSE 25,000 317.35 / 317.35 171.417 / 171.417 units In 500 ml @ 600 UNITS/HR 12 mls/hr IV .Q24H [facility] Rx#: [id number] Nss 250 ml @ 60 mls/hr IV . 250 / 250 Q4H10M ONE Rx#:[id number] Oral 240 / 240 Output: Urine Amount (Catheter) 200 / 450 100 / 450 External 200 / 200 Lynn/Indwelling 100 / 250 Other: Weight 59.1 kg 59.1 kg Weight Measurement Method Built in [facility] Patient Weight 06/28/20 06:59 Weight 59.1 kg
[2020-06-27] MEDS: ASPIRIN 81 MG ECTAB PO SCH (10:34)
[2020-06-27] MEDS: FOLIC ACID 1 MG TAB PO SCH (10:34)
[2020-06-27] MEDS: AMIODARONE 200 MG TAB PO SCH (10:35)
[2020-06-27] MEDS: THIAMINE HCL 100 MG TAB PO SCH ×2 (10:39→11:11)
--- NOTE | 2020-06-27 12:20 | Electrocardiogram Report ---
Test Reason : Blood Pressure : / mmHG Vent. Rate : 053 BPM Atrial Rate : 053 BPM P-R Int : 158 ms QRS Dur : 098 ms QT Int : 482 ms P-R-T Axes : 051 050 040 degrees QTc Int : 452 ms Sinus bradycardia with Premature supraventricular complexes Possible Left atrial enlargement Anteroseptal infarct (cited on or before 23-JUN-2020) Abnormal ECG When compared with ECG of 25-JUN-2020 06:44, Atrial flutter is no longer Present Serial changes of evolving Anteroseptal infarct Present Confirmed by Manolo Allen ([id number]) on 06/27/2020 12:20:15 PM Referred By: REFERRED SELF Confirmed By:Manolo Allen
[2020-06-27 16:17] LABS: Partial Thromboplastin Ratio 1.8
[2020-06-27 16:32] LABS: Partial Thromboplastin Time 50.4 Seconds (21.0-31.0)
[2020-06-27] MEDS: WARFARIN SOD 5 MG TAB PO SCH (17:54)
--- NOTE | 2020-06-27 18:07 | Hospitalist Progress Note ---
Date of Service June 27, 2020 Assessment & Plan (1) SIRS (systemic inflammatory response syndrome): (2) Acute metabolic encephalopathy: (3) Atrial flutter with rapid ventricular response: Patient is an 79 yr male with unknown PMH and does not follow with regular PCP who presents to ED with POA/granddaughter secondary to change in mental status and weakness for unknown duration. Atrial Flutter with RVR Normal TSH ECHO: EF 20 to 25%. Right ventricle systolic function is normal. Left atrium size is normal. Right atrial size is normal. There is mild mitral regurgitation. IV Cardizem drip discontinued. Also received digoxin. Also received Adenosine S/P Cardioversion on 06/27/20 IV amiodarone discontinued Continue IV heparin, coumadin Continue oral amiodarone and Metoprolol as per cardiology Appreciate cardiology input Monitor INR:1.2 today Monitor electrolytes and replace as needed Added Lisinopril for tachycardia induced cardiomyopathy. Possible Severe Sepsis Lactic acidosis Unclear source Blood Cx: No growth to date UA not suggestive of UTI Chest x-ray showed no acute process Received gentle IV fluids Blood pressure improved Given significant reduced EF, will reassess frequently for volume status Discontinue empiric Rocephin, doxycycline monitor off Abx Diarrhea Check stool studies (4) Stroke-like symptom: Acute metabolic encephalopathy Strokelike symptoms--Acute CVA ruled out CT Head: No acute intracranial findings Head CTA:No central vessel occlusion. Dominant, patent left vertebral artery. 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 Neck CTA:No evidence of hemodynamically significant carotid stenosis. Dominant left vertebral artery. Distal right vertebral artery stenosis. 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 There is no hemorrhage or mass effect. There is no restricted diffusion to suggest acute ischemia. A chronic lacunar infarct is seen in the left akshat. Rainey-white matter differentiation is preserved. No extra- axial fluid collection is seen. The cerebellar tonsils are normal in configuration. -X ray RUE showed no acute fractures May need EMG as outpatient LDL:61 Thiamine Levels:pending Folic acid: 3.0 (Low) B12 levels: Normal Normal TSH Speech eval Started on Aspirin 81mg daily given old CVA on MRI (Ok with if no significant risk for falls) Appreciate Neurology Input Continue Thiamine, folic acid (5) AWAIS (acute kidney injury): Likely dehydration Cr:1.7>>1.10>0.89 Received IV fluids avoid nephrotoxic agents as able Monitor renal function Cautious use of IV fluids as needed given low EF (6) Elevated troponin: Likely demand ischemia--type II [place] secondary to tachycardia Monitor denies chest pain (7) Lactic acidosis: Management as above (8) Hyponatremia: Likely secondary to dehydration Unknown chronicity Monitor sodium levels Sodium>129>132>131>130>131 Received gentle IV Fluids Monitor (9) Hyperglycemia: HbA1C:5.5 (10) DVT prophylaxis: IV Heparin, Coumadin Code Status DNI/DNR Disposition PT/OT To be determined Admission and Anticipated Discharge Date Admission Date: June 23, 2020 Subjective Patient is seen and examined at bedside Had successful cardioversion earlier today Mental status continues to improve Currently in sinus this morning No new complaints Denies chest pain, dyspnea, dizziness, nausea, abdominal pain Had 3 large loose BMs today Review of Systems Review of Systems: All systems reviewed & are unremarkable except as noted in HPI & below Physical Exam Physical Exam: Physical Exam: Vitals signs as noted above General Appearance:Thin, Cachectic, no apparent distress Head: normocephalic, Atraumatic Eyes: normal inspection, EOMI Neck: supple, Trachea midline Respiratory/Chest: Normal breath sounds, CTA, No accessory muscle use Cardiovascular: S1, S2, No murmur Abdomen/GI:Soft, Non tender, Bowel sounds present Extremities/Musculoskelatal:normal inspection, 1+ B/L LE edema, +UE ecchymosis Neurologic/Psych: Oriented to person and place only. UE weakness RUE> LUE, +Confusion better Skin: normal color, warm, Left foot blister due to edema Results & Data Results & Data ([facility]) Vital Signs (Past 12 Hours) Vital Signs Temp Pulse Pulse Resp BP Pulse Ox 06/27/20 16:00 70 06/27/20 15:11 36.5 C 67 18 129/82 97 06/27/20 12:00 36.5 C 74 18 139/62 95 06/27/20 08:55 36.8 C 68 18 137/66 96 06/27/20 08:40 36.5 C 66 18 132/91 96 06/27/20 08:20 65 16 137/101 H 100 06/27/20 08:05 61 16 142/103 H 100 06/27/20 08:00 68 Laboratory Results [facility] 06/27/20 09:09 Sodium 131 L Potassium 3.7 Chloride 96 L Carbon Dioxide 30 BUN 20 H Creatinine 1.00 Glucose 87 Calcium 8.0 L
[2020-06-27] MEDS: METOPROLOL TARTRATE 25 MG TAB PO SCH (20:28)
[2020-06-28 06:58] LABS: Hematocrit (blood only) 39.5 % (42-52); Hemoglobin 13.2 g/dL (14.0-18.0); Mean Corpuscular Hemoglobin 31.4 pg (25-34); Mean Corpuscular Hgb Conc 33.4 g/dL (32-36); Mean Corpuscular Volume 93.8 fL (80-100); Mean Platelet Volume 10.1 fL (7.4-10.4); Platelet Count 160 K/uL (130-400); RDW Coefficient of Variation 15.1 % (11.5-14.5); RDW Standard Deviation 50.6 fL (36.4-46.3); Red Blood Count 4.21 M/uL (4.7-6.1); White Blood Count 10.28 K/uL (4.8-10.8)
[2020-06-28 07:31] LABS: INR 1.2 (0.9-1.1); Partial Thromboplastin Ratio 2.3; Prothrombin Time 12.6 Seconds (9.0-12.0)
[2020-06-28 07:36] LABS: BUN Creatinine Ratio 19.8 (10-20); Calcium 8.4 mg/dl (8.5-10.1); Creatinine Clr Calc Pharmacy 53.9 ml/min; Est GFR (African American) 90.1; Est GFR (Non-African American) 77.7; Partial Thromboplastin Time 63.5 Seconds (21.0-31.0); Potassium 3.3 mmol/L (3.5-5.1)
[2020-06-28] MEDS: METOPROLOL TARTRATE 25 MG TAB PO SCH ×2 (07:54→20:19)
[2020-06-28] MEDS: THIAMINE HCL 100 MG TAB PO SCH (07:55)
[2020-06-28] MEDS: ASPIRIN 81 MG ECTAB PO SCH (07:55)
[2020-06-28] MEDS: AMIODARONE 200 MG TAB PO SCH (07:55)
[2020-06-28] MEDS: FOLIC ACID 1 MG TAB PO SCH (07:55)
[2020-06-28] MEDS: lisinopril 2.5 MG TAB PO SCH (07:55)
[2020-06-28] MEDS ORDERED: POTASSIUM CHLORIDE CRTAB 20 MEQ TABCR PO ONE (10:00)
[2020-06-28] MEDS: HEPARIN SODIUM/DEXTROSE 25,000 UNITS/500 ML BAG IV SCH (14:16)
--- NOTE | 2020-06-28 14:59 | Cardiology Progress Note ---
Date of Service June 28, 2020 Assessment & Plan (1) Atrial flutter with rapid ventricular response: (2) Tachycardia induced cardiomyopathy: (3) Severe left ventricular systolic dysfunction: Patient remains in sinus rhythm status post transesophageal echocardiogram guided direct-current cardioversion 06/27/2020. Continue rhythm control strategy with amiodarone 200 mg by mouth daily, transition beta-nik to metoprolol succinate 50 mg daily in the morning to start tomorrow. Stroke prophylaxis: Heparin bridge, coumadin load, INR 1.2 today. Eliquis 2.5 mg BID would be a good alternative to coumadin with dose adjusted for weight of 60 kg, and age > 80 years old if affordable. Lisinopril started today. Patient may very well have underlying coronary heart disease, but I am optimistic that his left ventricular systolic dysfunction will improve with maintenance of sinus rhythm. Potassium level of 3.3 today, replaced orally by the primary service. DVT prophylaxis: Fully anticoagulated with heparin as noted above. Admission and Anticipated Discharge Date Admission Date: June 23, 2020 Subjective Patient seen in follow-up. Denies any subjective complaints. Telemetry reveals sinus bradycardia in the 50s with occasional PVCs. INR 1.2 today. Review of Systems Review of Systems: All systems reviewed & are unremarkable except as noted in HPI & below Physical Exam Physical Exam: Temp Pulse Resp BP Pulse Ox 36.8 C 72 16 136/62 96 06/28/20 08:37 06/28/20 08:37 06/28/20 08:37 06/28/20 08:37 06/28/20 08:37 Constitutional: Chronically ill in appearance, frail Respiratory: normal respiratory effort, lungs clear to auscultation Cardiovascular: RRR, no murmur, no edema Gastrointestinal (Abdomen): normal bowel sounds, soft, nontender, no hepatosplenomegaly Neurologic: Right upper extremity weakness, otherwise no focal deficits Results & Data ([facility]) Vital Signs (Past 12 Hours) Vital Signs Temp Pulse Resp BP Pulse Ox 06/28/20 08:37 36.8 C 72 16 136/62 96 06/28/20 03:39 36.4 C L 64 17 144/87 H 97 Laboratory Results Coagulation 06/27/20 06/28/20 Range/Units 15:41 06:03 PT 12.6 H (9.0-12.0) Seconds APTT 50.4 H* 63.5 H* (21.0-31.0) Seconds CBC 06/28/20 Range/Units 06:03 WBC 10.28 (4.8-10.8) K/uL RBC 4.21 L (4.7-6.1) M/uL Hgb 13.2 L (14.0-18.0) g/dL Hct 39.5 L (42-52) % Plt Count 160 (130-400) K/uL Comprehensive Metabolic Panel 06/28/20 Range/Units 06:03 Sodium 134 L (136-145) mmol/L Potassium 3.3 L (3.5-5.1) mmol/L Chloride 98 (98-107) mmol/L Carbon Dioxide 28 (21-32) mmol/L BUN 18 (7-18) mg/dl Creatinine 0.92 (0.6-1.4) mg/dl Glucose 75 (70-99) mg/dl Calcium 8.4 L (8.5-10.1) mg/dl Intake and Output 06/27/20 06/28/20 06/28/20 22:59 06:59 14:59 Intake Total 296.6 / 789.005 65.4 / 789.005 366.583 / 366.583 Output Total 150 / 752 351 / 752 250 / 250 Balance 146.6 / 37.005 -285.6 / 37.005 116.583 / 116.583 Intake: IV 96.6 / 489.005 65.4 / 489.005 166.583 / 166.583 HEPARIN SODIUM/DEXTROSE 25,000 96.6 / 333.417 65.4 / 333.417 166.583 / 166.583 units In 500 ml @ 600 UNITS/HR 12 mls/hr IV .Q24H [facility] Rx#: [id number] Oral 200 / 300 200 / 200 Output: Urine Amount (Catheter) 150 / 750 350 / 750 250 / 250 Lynn/Indwelling 150 / 750 350 / 750 250 / 250 # Bowel Movements 1 / 2 Other: Weight 59.1 kg 60.5 kg Weight Measurement Method Built in [facility]
[2020-06-28] MEDS: WARFARIN SOD 5 MG TAB PO SCH (15:46)
--- NOTE | 2020-06-28 19:15 | Hospitalist Progress Note ---
Date of Service June 28, 2020 Assessment & Plan (1) SIRS (systemic inflammatory response syndrome): (2) Acute metabolic encephalopathy: (3) Atrial flutter with rapid ventricular response: Patient is an 79 yr male with unknown PMH and does not follow with regular PCP who presents to ED with POA/granddaughter secondary to change in mental status and weakness for unknown duration. Atrial Flutter with RVR Normal TSH ECHO: EF 20 to 25%. Right ventricle systolic function is normal. Left atrium size is normal. Right atrial size is normal. There is mild mitral regurgitation. IV Cardizem drip discontinued. Also received digoxin. Also received Adenosine S/P Cardioversion on 06/27/20 IV amiodarone discontinued Continue IV heparin, coumadin Continue oral amiodarone and Metoprolol as per cardiology Appreciate cardiology input Monitor INR:1.2 today Monitor electrolytes and replace as needed Added Lisinopril for tachycardia induced cardiomyopathy. Plan to transition to Eliquis 2.5 mg twice daily if patient agrees (Copay $ 47) Remains in sinus rhythm Possible Severe Sepsis Lactic acidosis Unclear source Blood Cx: No growth to date UA not suggestive of UTI Chest x-ray showed no acute process Received gentle IV fluids Blood pressure improved Given significant reduced EF, will reassess frequently for volume status Discontinued empiric Rocephin, doxycycline Afebrile off Abx Diarrhea Check stool studies if recurrence of diarrhea Hypokalemia Likely secondary to diarrhea Replete electrolytes as needed (4) Stroke-like symptom: Acute metabolic encephalopathy Strokelike symptoms--Acute CVA ruled out CT Head: No acute intracranial findings Head CTA:No central vessel occlusion. Dominant, patent left vertebral artery. 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 Neck CTA:No evidence of hemodynamically significant carotid stenosis. Dominant left vertebral artery. Distal right vertebral artery stenosis. 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 There is no hemorrhage or mass effect. There is no restricted diffusion to suggest acute ischemia. A chronic lacunar infarct is seen in the left akshat. Rainey-white matter differentiation is preserved. No extra- axial fluid collection is seen. The cerebellar tonsils are normal in configuration. -X ray RUE showed no acute fractures May need EMG as outpatient LDL:61 Thiamine Levels:pending Folic acid: 3.0 (Low) B12 levels: Normal Normal TSH Speech eval Started on Aspirin 81mg daily given old CVA on MRI (Ok with if no significant risk for falls) Appreciate Neurology Input Continue Thiamine, folic acid (5) AWAIS (acute kidney injury): Likely dehydration Cr:1.7>>1.10>0.89 Received IV fluids avoid nephrotoxic agents as able Monitor renal function Cautious use of IV fluids as needed given low EF (6) Elevated troponin: Likely demand ischemia--type II [place] secondary to tachycardia Monitor denies chest pain (7) Lactic acidosis: Management as above (8) Hyponatremia: Likely secondary to dehydration Unknown chronicity Monitor sodium levels Sodium>129>132>131>130>131>134 Received gentle IV Fluids Monitor (9) Hyperglycemia: HbA1C:5.5 (10) DVT prophylaxis: IV Heparin, Coumadin Code Status DNI/DNR Disposition PT/OT To be determined Admission and Anticipated Discharge Date Admission Date: June 23, 2020 Subjective Patient is seen and examined at bedside Remains in sinus No new complaints Sitting in chair comfortably this morning Had 1 BM today Continues to have right upper extremity weakness Denies chest pain, dyspnea, dizziness, nausea, abdominal pain Review of Systems Review of Systems: All systems reviewed & are unremarkable except as noted in HPI & below Physical Exam Physical Exam: Physical Exam: Vitals signs as noted above General Appearance:Thin, Cachectic, no apparent distress Head: normocephalic, Atraumatic Eyes: normal inspection, EOMI Neck: supple, Trachea midline Respiratory/Chest: Normal breath sounds, CTA, No accessory muscle use Cardiovascular: S1, S2, No murmur Abdomen/GI:Soft, Non tender, Bowel sounds present Extremities/Musculoskelatal:normal inspection, 1+ B/L LE edema, +UE ecchymosis Neurologic/Psych: Oriented to person and place only. UE weakness RUE> LUE, +Confusion better Skin: normal color, warm, Left foot blister due to edema Results & Data Results & Data ([facility]) Vital Signs (Past 12 Hours) Vital Signs Temp Pulse Resp BP Pulse Ox 06/28/20 08:37 36.8 C 72 16 136/62 96 Laboratory Results Short CBC 06/28/20 Range/Units 06:03 WBC 10.28 (4.8-10.8) K/uL Hgb 13.2 L (14.0-18.0) g/dL Hct 39.5 L (42-52) % Plt Count 160 (130-400) K/uL BMP 06/28/20 06:03 Sodium 134 L Potassium 3.3 L Chloride 98 Carbon Dioxide 28 BUN 18 Creatinine 0.92 Glucose 75 Calcium 8.4 L
[2020-06-28] MEDS: METOPROLOL SUCC 50MG EXT REL TAB PO SCH (19:40)
[2020-06-29 06:32] LABS: INR 1.3 (0.9-1.1); Prothrombin Time 13.7 Seconds (9.0-12.0)
[2020-06-29 06:40] LABS: BUN Creatinine Ratio 22.1 (10-20); Calcium 7.9 mg/dl (8.5-10.1); Creatinine Clr Calc Pharmacy 62.6 ml/min; Est GFR (African American) 97.1; Est GFR (Non-African American) 83.8; Potassium 3.7 mmol/L (3.5-5.1)
[2020-06-29 07:54] LABS: Partial Thromboplastin Ratio 2.8
[2020-06-29 08:04] LABS: Partial Thromboplastin Time 79.5 Seconds (21.0-31.0)
[2020-06-29] MEDS: THIAMINE HCL 100 MG TAB PO SCH (09:07)
[2020-06-29] MEDS: FOLIC ACID 1 MG TAB PO SCH (09:07)
[2020-06-29] MEDS: AMIODARONE 200 MG TAB PO SCH (09:07)
[2020-06-29] MEDS: ASPIRIN 81 MG ECTAB PO SCH (09:07)
[2020-06-29] MEDS: lisinopril 2.5 MG TAB PO SCH (09:07)
--- NOTE | 2020-06-29 12:08 | Cardiology Progress Note ---
Date of Service June 29, 2020 Assessment & Plan (1) Atrial flutter with rapid ventricular response: (2) Severe left ventricular systolic dysfunction: (3) Tachycardia induced cardiomyopathy: Remains in sinus rhythm status post transesophageal echocardiogram guided direct-current cardioversion on 06/27/2020. Rhythm control: Continue metoprolol succinate 50 mg daily, amiodarone 200 mg daily. Stroke prophylaxis: Heparin to Coumadin, INR 1.3 today, goal INR 2-3. With regards to the left ventricular systolic dysfunction, hopefully this will improve with improvement of his tachycardia. Continue low-dose lisinopril. Patient awaiting placement. As an alternative to Coumadin, he would be a good candidate for Eliquis 2.5 mg twice daily, if affordable. Admission and Anticipated Discharge Date Admission Date: June 23, 2020 Subjective Mr Reggie was seen in cardiology follow-up. No complaints noted. Heparin continues to infuse. Telemetry reveals sinus rhythm for the most part in the 60s. Physical Exam Physical Exam: Temp Pulse Resp BP Pulse Ox 36.6 C 55 L 18 112/69 99 06/29/20 11:31 06/29/20 11:31 06/29/20 11:31 06/29/20 11:31 06/29/20 11:31 Constitutional: Frail, chronically ill in appearance, no acute distress Respiratory: normal respiratory effort, lungs clear to auscultation Cardiovascular: RRR, no murmur, no edema Gastrointestinal (Abdomen): normal bowel sounds, soft, nontender, no hepatosplenomegaly Neurologic: Right upper extremity weakness, chronic, through this hospital stay, otherwise no deficits. Results & Data ([facility]) Vital Signs (Past 12 Hours) Vital Signs Temp Pulse Pulse Resp BP Pulse Ox 06/29/20 11:31 36.6 C 55 L 18 112/69 99 06/29/20 08:00 50 L 06/29/20 07:22 36.6 C 63 18 145/76 H 99 06/29/20 02:55 36.5 C 55 L 17 125/76 99 06/29/20 01:33 62
[2020-06-29 15:34] LABS: Partial Thromboplastin Ratio 2.3
[2020-06-29 15:36] LABS: Partial Thromboplastin Time 63.2 Seconds (21.0-31.0)
[2020-06-29] MEDS: WARFARIN SOD 5 MG TAB PO SCH (17:28)
--- NOTE | 2020-06-29 19:25 | Hospitalist Progress Note ---
Date of Service June 29, 2020 Assessment & Plan (1) SIRS (systemic inflammatory response syndrome): (2) Acute metabolic encephalopathy: (3) Atrial flutter with rapid ventricular response: Patient is an 79 yr male with unknown PMH and does not follow with regular PCP who presents to ED with POA/granddaughter secondary to change in mental status and weakness for unknown duration. Atrial Flutter with RVR Normal TSH ECHO: EF 20 to 25%. Right ventricle systolic function is normal. Left atrium size is normal. Right atrial size is normal. There is mild mitral regurgitation. IV Cardizem drip discontinued. Also received digoxin. Also received Adenosine S/P Cardioversion on 06/27/20 IV amiodarone discontinued Continue IV heparin, coumadin Continue oral amiodarone and Metoprolol as per cardiology Appreciate cardiology input Monitor INR:1.3 today Monitor electrolytes and replace as needed Added Lisinopril for tachycardia induced cardiomyopathy. Plan to transition to Eliquis 2.5 mg twice daily if patient agrees (Copay $ 47) Needs follow-up with cardiology upon discharge Waiting for placement Possible Severe Sepsis Lactic acidosis Unclear source Blood Cx: No growth UA not suggestive of UTI Chest x-ray showed no acute process Received gentle IV fluids Blood pressure improved Given significant reduced EF, will reassess frequently for volume status Discontinued empiric Rocephin, doxycycline Afebrile off Abx Diarrhea Check stool studies if recurrence of diarrhea Hypokalemia Likely secondary to diarrhea Replete electrolytes as needed (4) Stroke-like symptom: Acute metabolic encephalopathy Strokelike symptoms--Acute CVA ruled out CT Head: No acute intracranial findings Head CTA:No central vessel occlusion. Dominant, patent left vertebral artery. 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 Neck CTA:No evidence of hemodynamically significant carotid stenosis. Dominant left vertebral artery. Distal right vertebral artery stenosis. 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 There is no hemorrhage or mass effect. There is no restricted diffusion to suggest acute ischemia. A chronic lacunar infarct is seen in the left akshat. Rainey-white matter differentiation is preserved. No extra- axial fluid collection is seen. The cerebellar tonsils are normal in configuration. -X ray RUE showed no acute fractures May need EMG as outpatient LDL:61 Thiamine Levels:pending Folic acid: 3.0 (Low) B12 levels: Normal Normal TSH Speech eval Started on Aspirin 81mg daily given old CVA on MRI (Ok with if no significant risk for falls) Appreciate Neurology Input Continue Thiamine, folic acid Mental status continues to improve (5) AWAIS (acute kidney injury): Likely dehydration Cr:1.7>>1.10>0.8 Received IV fluids avoid nephrotoxic agents as able Monitor renal function Cautious use of IV fluids as needed given low EF (6) Elevated troponin: Likely demand ischemia--type II [place] secondary to tachycardia Monitor denies chest pain (7) Lactic acidosis: Management as above (8) Hyponatremia: Likely secondary to dehydration Unknown chronicity Monitor sodium levels Sodium>129>132>131>130>131>134 Received gentle IV Fluids Monitor (9) Hyperglycemia: HbA1C:5.5 (10) DVT prophylaxis: IV Heparin, Coumadin Code Status DNI/DNR Disposition Waiting for rehab placement Admission and Anticipated Discharge Date Admission Date: June 23, 2020 Subjective Patient is seen and examined at bedside Mental status continues to improve Right upper extremity weakness better today No new complaints Remains in sinus Denies chest pain, dyspnea, dizziness, nausea, abdominal pain Review of Systems Review of Systems: All systems reviewed & are unremarkable except as noted in HPI & below Physical Exam Physical Exam: Physical Exam: Vitals signs as noted above General Appearance:Thin, Cachectic, no apparent distress Head: normocephalic, Atraumatic Eyes: normal inspection, EOMI Neck: supple, Trachea midline Respiratory/Chest: Normal breath sounds, CTA, No accessory muscle use Cardiovascular: S1, S2, No murmur Abdomen/GI:Soft, Non tender, Bowel sounds present Extremities/Musculoskelatal:normal inspection, 1+ B/L LE edema, +UE ecchymosis Neurologic/Psych: Oriented to person and place only. UE weakness RUE> LUE, Mental status improved Skin: normal color, warm, Left foot blister due to edema Results & Data Results & Data ([facility]) Vital Signs (Past 12 Hours) Vital Signs Temp Pulse Pulse Resp BP Pulse Ox 06/29/20 16:00 80 06/29/20 15:39 36.4 C L 70 16 137/74 94 06/29/20 11:31 36.6 C 55 L 18 112/69 99 06/29/20 08:00 50 L 06/29/20 07:22 36.6 C 63 18 145/76 H 99 Laboratory Results [facility] 06/29/20 05:52 Sodium 134 L Potassium 3.7 Chloride 99 Carbon Dioxide 29 BUN 18 Creatinine 0.80 Glucose 75 Calcium 7.9 L
[2020-06-29] MEDS: HEPARIN SODIUM/DEXTROSE 25,000 UNITS/500 ML BAG IV SCH (23:48)
[2020-06-30] MEDS: THIAMINE HCL 100 MG TAB PO SCH (08:16)
[2020-06-30] MEDS: ASPIRIN 81 MG ECTAB PO SCH (08:16)
[2020-06-30] MEDS: FOLIC ACID 1 MG TAB PO SCH (08:16)
[2020-06-30 08:17] LABS: Hematocrit (blood only) 35.4 % (42-52); Hemoglobin 11.8 g/dL (14.0-18.0); Mean Corpuscular Hemoglobin 31.6 pg (25-34); Mean Corpuscular Hgb Conc 33.3 g/dL (32-36); Mean Corpuscular Volume 94.7 fL (80-100); Mean Platelet Volume 9.5 fL (7.4-10.4); Platelet Count 185 K/uL (130-400); RDW Coefficient of Variation 15.6 % (11.5-14.5); RDW Standard Deviation 53.3 fL (36.4-46.3); Red Blood Count 3.74 M/uL (4.7-6.1); White Blood Count 7.52 K/uL (4.8-10.8)
[2020-06-30] MEDS: AMIODARONE 200 MG TAB PO SCH (08:17)
[2020-06-30] MEDS: lisinopril 2.5 MG TAB PO SCH (08:17)
[2020-06-30] MEDS: METOPROLOL SUCC 50MG EXT REL TAB PO SCH (08:18)
[2020-06-30 08:45] LABS: Est GFR (African American) 93.8; Est GFR (Non-African American) 80.9
[2020-06-30 08:46] LABS: BUN Creatinine Ratio 35.4 (10-20); Creatinine Clr Calc Pharmacy 53.5 ml/min; Magnesium 2.1 mg/dl (1.8-2.4)
[2020-06-30 08:59] LABS: INR 1.9 (0.9-1.1); Partial Thromboplastin Ratio 2.3; Prothrombin Time 18.9 Seconds (9.0-12.0)
[2020-06-30 09:00] LABS: Partial Thromboplastin Time 64.9 Seconds (21.0-31.0)
[2020-06-30] MEDS ORDERED: PANTOprazole 40 MG in SYRINGE 0 ML IV ONE (16:00)
[2020-06-30] MEDS ORDERED: PHYTONADIONE 5 MG TAB PO ONE (16:00)
[2020-06-30 16:12] LABS: Hematocrit (blood only) 33.2 % (42-52); Hemoglobin 11.5 g/dL (14.0-18.0)
--- NOTE | 2020-06-30 16:13 | Cardiology Progress Note ---
Date of Service June 30, 2020 Assessment & Plan (1) Atrial flutter with rapid ventricular response: (2) Tachycardia induced cardiomyopathy: (3) Severe left ventricular systolic dysfunction: INR 1.9. Melena noted. Discontinue heparin. Hold Coumadin pending INR and hemoglobin results tomorrow. Hold aspirin for now. Continue metoprolol, amiodarone, lisinopril. Admission and Anticipated Discharge Date Admission Date: June 23, 2020 Subjective Patient seen in follow-up. Since my initial assessment of him this morning, he apparently had an episode of melena prompting discontinuation of heparin and Coumadin per my discussion with Dr. Mccarthy. Patient without complaints otherwise. Telemetry reveals sinus rhythm in the 60s. Physical Exam Physical Exam: Temp Pulse Resp BP Pulse Ox 36.8 C 63 20 144/76 H 98 06/30/20 15:44 06/30/20 16:06 06/30/20 15:44 06/30/20 15:44 06/30/20 15:44 Constitutional: Conversant, minimally, no complaints Respiratory: normal respiratory effort, lungs clear to auscultation Cardiovascular: RRR, no murmur, no edema Gastrointestinal (Abdomen): normal bowel sounds, soft, nontender, no hepatosplenomegaly Neurologic: Right upper extremity weakness, ongoing this hospital stay, otherwise no deficits Results & Data ([facility]) Vital Signs (Past 12 Hours) Vital Signs Temp Pulse Pulse Resp BP Pulse Ox 06/30/20 16:06 63 06/30/20 15:44 36.8 C 68 20 144/76 H 98 06/30/20 12:56 36.5 C 82 18 131/74 95 06/30/20 08:16 36.9 C 76 18 122/66 95 06/30/20 07:19 51 L Laboratory Results Coagulation 06/30/20 Range/Units 08:00 PT 18.9 H (9.0-12.0) Seconds APTT 64.9 H* (21.0-31.0) Seconds CBC 06/30/20 Range/Units 08:00 WBC 7.52 (4.8-10.8) K/uL RBC 3.74 L (4.7-6.1) M/uL Hgb 11.8 L (14.0-18.0) g/dL Hct 35.4 L (42-52) % Plt Count 185 (130-400) K/uL Comprehensive Metabolic Panel 06/30/20 Range/Units 08:00 Sodium 135 L (136-145) mmol/L Potassium 4.0 (3.5-5.1) mmol/L Chloride 101 (98-107) mmol/L Carbon Dioxide 27 (21-32) mmol/L BUN 31 H D (7-18) mg/dl Creatinine 0.87 (0.6-1.4) mg/dl Glucose 89 (70-99) mg/dl Calcium 8.0 L (8.5-10.1) mg/dl Intake and Output 06/30/20 06/30/20 06/30/20 06:59 14:59 22:59 Intake Total 51.7 / 1017.100 720.85 / 720.85 Output Total 400 / 1100 Balance -348.3 / -82.900 720.85 / 720.85 Intake: IV 51.7 / 387.100 80.85 / 80.85 HEPARIN SODIUM/DEXTROSE 25,000 51.7 / 387.100 80.85 / 80.85 units In 500 ml @ 550 UNITS/HR 11 mls/hr IV .Q24H [facility] Rx#: [id number] Oral 640 / 640 Output: Urine Amount (Catheter) 400 / 550 Lynn/Indwelling 400 / 550 Other: Other Intake Source sips Weight 56.8 kg Weight Measurement Method Built in [facility]
--- NOTE | 2020-06-30 22:15 | Hospitalist Progress Note ---
Date of Service June 30, 2020 Assessment & Plan (1) Atrial flutter with rapid ventricular response: Presented with atrial flutter + rapid ventricular response. Seen in consultation by Cardiology. Received IV heparin, metoprolol, diltiazem, amiodarone. MEHDI guided cardioversion performed 06/27/20 with successful conversion to sinus rhythm. Currently receiving metoprolol and amiodarone. Was anticoagulated with IV heparin transitioning to warfarin- stopped due to GI bleed. (2) Elevated troponin: Serum troponins 0.188 > 0.185 > 0.160. Elevated troponins probably due to tachycardia. (3) Severe left ventricular systolic dysfunction: Echo showed LVEF 20-25%. 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 No clinical signs of CHF. Receiving lisinopril and metoprolol succinate. Follow. (4) Stroke-like symptom: Presented with RUE weakness and confusion. CT head and MRI brain did not show any acute findings. (5) Acute metabolic encephalopathy: Confused at time of admission. CT head and MRI brain did not show any acute findings. Probable metabolic encephalopathy secondary to hyponatremia and AWAIS. (6) AWAIS (acute kidney injury): Serum creatinine 1.72 at time of admission. Acute kidney injury, probably due to volume depletion and/or decreased cardiac output. Received IV fluids. Creatinine today = 0.87. (7) Hyponatremia: Serum Na at time of admission was 129. Possible SIADH (did not have urine osm done at that time). Sodium today = 135. Follow. (8) Gastrointestinal bleed: Nursing noted suspected melena this afternoon; stools heme positive. Hemodynamically stable. Hgb 14.6 (probably volume depleted at time of admission) >> 11.5. Stop aspirin, heparin, and warfarin. Vitamin K 2.5 mg x 1. Type and screen pRBC's. Monitor H/H. Acid suppression with PPI +/- H2 nik. Consult GI. (9) COVID-19 ruled out: SARS-CoV-2 Ag negative on 06/23/20. (10) Do not resuscitate status: As noted. (11) DVT prophylaxis: Was receiving anticoagulation with heparin and warfarin- stopped due to GI bleed. SCD's. Ambulate as able. (12) Discharge planning issues: Anticipated need for skilled care when medically stable and bed available. Admission and Anticipated Discharge Date Admission Date: June 23, 2020 Subjective Recheck for atrial flutter and other problems. Patient seen in their room around 1610. Denies chest pain or SOB. Telemetry data reviewed- SR in 50's to 60's. Nurse noted melena this afternoon. Patient denies abdominal pain, nausea, vomiting. Review of Systems: Constitutional- no fever. Cardiac- as noted above. Pulmonary- no cough or SOB. GI- as noted above. - no urinary symptoms. Otherwise, as noted above. Physical Exam Constitutional: no acute distress Eyes: + anicteric sclerae Respiratory: normal respiratory effort, lungs clear to auscultation Cardiovascular: Rate/Rhythm: regular rate and regular rhythm Vessels: no JVD Extremities: no calf tenderness and no edema Gastrointestinal (Abdomen): normal bowel sounds, soft, nontender, no hepatosplenomegaly Musculoskeletal: Extremities: + extremities abnormal to inspection (LT ankle / foot bandaged) and no cyanosis Skin: no rashes, warm and dry Psychiatric: Orientation: alert Results & Data Results & Data ([facility]) Vital Signs (Past 12 Hours) Vital Signs Temp Pulse Pulse Resp BP Pulse Ox 06/30/20 20:01 36.3 C L 60 17 152/74 H 98 06/30/20 16:06 63 06/30/20 15:44 36.8 C 68 20 144/76 H 98 06/30/20 12:56 36.5 C 82 18 131/74 95 Laboratory Results Laboratory Results - last 24 hr 06/25/20 06/30/20 06/30/20 05:34 08:00 08:00 WBC 7.52 RBC 3.74 L Hgb 11.8 L Hct 35.4 L MCV 94.7 MCH 31.6 MCHC 33.3 RDW Std Deviation 53.3 H RDW Coeff of Iron 15.6 H Plt Count 185 MPV 9.5 PT 18.9 H INR 1.9 H APTT 64.9 H* PTT Ratio 2.3 Sodium Potassium Chloride Carbon Dioxide Anion Gap BUN Creatinine Est Cr Clr Drug Dosing Est GFR ( Amer) Est GFR (Non-Af Amer) BUN/Creatinine Ratio Glucose Calcium Magnesium Whole Bld Vitamin B1 233 H Stool Occult Bld Scrn Blood Type Antibody Screen 06/30/20 06/30/20 06/30/20 08:00 16:03 16:03 WBC RBC Hgb 11.5 L Hct 33.2 L MCV MCH MCHC RDW Std Deviation RDW Coeff of Iron Plt Count MPV PT INR APTT PTT Ratio Sodium 135 L Potassium 4.0 Chloride 101 Carbon Dioxide 27 Anion Gap 7.0 BUN 31 H D Creatinine 0.87 Est Cr Clr Drug Dosing 53.5 Est GFR ( Amer) 93.8 Est GFR (Non-Af Amer) 80.9 BUN/Creatinine Ratio 35.4 H Glucose 89 Calcium 8.0 L Magnesium 2.1 Whole Bld Vitamin B1 Stool Occult Bld Scrn Blood Type O Positive Antibody Screen NEGATIVE 06/30/20 Unknown WBC RBC Hgb Hct MCV MCH MCHC RDW Std Deviation RDW Coeff of Iron Plt Count MPV PT INR APTT PTT Ratio Sodium Potassium Chloride Carbon Dioxide Anion Gap BUN Creatinine Est Cr Clr Drug Dosing Est GFR ( Amer) Est GFR (Non-Af Amer) BUN/Creatinine Ratio Glucose Calcium Magnesium Whole Bld Vitamin B1 Stool Occult Bld Scrn Positive A Blood Type Antibody Screen
[2020-07-01 08:11] LABS: Hematocrit (blood only) 35.9 % (42-52); Hemoglobin 12.3 g/dL (14.0-18.0); Mean Corpuscular Hgb Conc 34.3 g/dL (32-36); Mean Corpuscular Volume 93.5 fL (80-100); Platelet Count 194 K/uL (130-400); RDW Coefficient of Variation 15.8 % (11.5-14.5); RDW Standard Deviation 53.5 fL (36.4-46.3); Red Blood Count 3.84 M/uL (4.7-6.1); White Blood Count 6.22 K/uL (4.8-10.8)
[2020-07-01 08:24] LABS: INR 1.5 (0.9-1.1); Prothrombin Time 15.5 Seconds (9.0-12.0)
[2020-07-01] MEDS: FOLIC ACID 1 MG TAB PO SCH (08:33)
[2020-07-01] MEDS: FAMOTIDINE 20 MG in SYRINGE 3 ML IV SCH ×2 (08:33→20:25)
[2020-07-01] MEDS: AMIODARONE 200 MG TAB PO SCH (08:33)
[2020-07-01] MEDS: METOPROLOL SUCC 50MG EXT REL TAB PO SCH (08:39)
[2020-07-01] MEDS: lisinopril 2.5 MG TAB PO SCH (08:40)
[2020-07-01] MEDS: THIAMINE HCL 100 MG TAB PO SCH (08:40)
[2020-07-01 08:43] LABS: Calcium 8.2 mg/dl (8.5-10.1); Creatinine Clr Calc Pharmacy 56.8 ml/min; Est GFR (African American) 96.1; Est GFR (Non-African American) 82.9; Potassium 3.8 mmol/L (3.5-5.1)
[2020-07-01] MEDS: LANSOPRAZOLE 30 MG SOLTAB PO SCH ×2 (10:04→20:25)
--- NOTE | 2020-07-01 11:45 | Hospitalist Progress Note ---
Date of Service July 01, 2020 Assessment & Plan (1) Atrial flutter with rapid ventricular response: Presented with atrial flutter + rapid ventricular response. Seen in consultation by Cardiology. Received IV heparin, metoprolol, diltiazem, amiodarone. MEHDI guided cardioversion performed 06/27/20 with successful conversion to sinus rhythm. Currently receiving metoprolol and amiodarone. Was anticoagulated with IV heparin transitioning to warfarin- stopped due to GI bleed. Long-term antithrombotic strategy to be determined. (2) Elevated troponin: Serum troponins 0.188 > 0.185 > 0.160. Elevated troponins probably due to tachycardia. (3) Severe left ventricular systolic dysfunction: Echo showed LVEF 20-25%. 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 No clinical signs of CHF. Receiving lisinopril and metoprolol succinate. Follow. (4) Stroke-like symptom: Presented with RUE weakness and confusion. CT head and MRI brain did not show any acute findings. (5) Acute metabolic encephalopathy: Confused at time of admission. CT head and MRI brain did not show any acute findings. Probable metabolic encephalopathy secondary to hyponatremia and AWAIS. (6) AWAIS (acute kidney injury): Serum creatinine 1.72 at time of admission. Acute kidney injury, probably due to volume depletion and/or decreased cardiac output. Received IV fluids. Creatinine today = 0.82. (7) Hyponatremia: Serum Na at time of admission was 129. Possible SIADH (did not have urine osm done at that time). Sodium today = 135. Follow. (8) Gastrointestinal bleed: Nursing noted suspected melena this afternoon; stools heme positive. Hemodynamically stable. Hgb 14.6 (probably volume depleted at time of admission) >> 12.3. Stopped aspirin, heparin, and warfarin. Vitamin K 2.5 mg x 1. Type and screen pRBC's. INR today = 1.5. Conitnue to monitor H/H. Acid suppression with PPI +/- H2 nik. (Using lansoprazole ODT + IV famotidine due to national shortage of IV pantoprazole.) Consult GI. (9) COVID-19 ruled out: SARS-CoV-2 Ag negative on 06/23/20. Will probably need PCR if endoscopy recommended. (10) Do not resuscitate status: As noted. (11) DVT prophylaxis: Was receiving anticoagulation with heparin and warfarin- stopped due to GI bleed. SCD's. Ambulate as able. (12) Discharge planning issues: Anticipated need for skilled care when medically stable and bed available. Admission and Anticipated Discharge Date Admission Date: June 23, 2020 Subjective Recheck for atrial flutter and other problems. Patient seen in their room around 1000. Denies chest pain or SOB. Telemetry data reviewed- SR in 70's with PAC's. Nursing reports 1 dark stool during the night. Patient denies abdominal pain, nausea, vomiting. Review of Systems: Constitutional- no fever. Cardiac- as noted above. Pulmonary- no cough or SOB. GI- as noted above. - no urinary symptoms. Otherwise, as noted above. Physical Exam Constitutional: no acute distress Eyes: + anicteric sclerae Respiratory: normal respiratory effort, lungs clear to auscultation Cardiovascular: Rate/Rhythm: regular rate and regular rhythm Vessels: no JVD Extremities: no calf tenderness and no edema Gastrointestinal (Abdomen): normal bowel sounds, soft, nontender, no hepatosplenomegaly Musculoskeletal: Extremities: + extremities abnormal to inspection (LT foot bandaged) and no cyanosis Skin: no rashes, warm and dry Psychiatric: Orientation: alert Results & Data Results & Data ([facility]) Vital Signs (Past 12 Hours) Vital Signs Temp Pulse Pulse Pulse Resp BP Pulse Ox 07/01/20 09:03 56 L 07/01/20 07:48 36.5 C 63 16 142/80 H 99 07/01/20 04:22 36.5 C 62 19 126/71 97 06/30/20 23:58 36.8 C 53 L 16 129/72 99 Laboratory Results Laboratory Results - last 24 hr 06/30/20 06/30/20 06/30/20 16:03 16:03 Unknown WBC RBC Hgb 11.5 L Hct 33.2 L MCV MCH MCHC RDW Std Deviation RDW Coeff of Iron Plt Count MPV PT INR Sodium Potassium Chloride Carbon Dioxide Anion Gap BUN Creatinine Est Cr Clr Drug Dosing Est GFR ( Amer) Est GFR (Non-Af Amer) BUN/Creatinine Ratio Glucose Calcium Stool Occult Bld Scrn Positive A Blood Type O Positive Antibody Screen NEGATIVE 07/01/20 07/01/20 07/01/20 07:55 07:55 07:55 WBC 6.22 RBC 3.84 L Hgb 12.3 L Hct 35.9 L MCV 93.5 MCH 32.0 MCHC 34.3 RDW Std Deviation 53.5 H RDW Coeff of Iron 15.8 H Plt Count 194 MPV 9.0 PT 15.5 H INR 1.5 H Sodium 135 L Potassium 3.8 Chloride 101 Carbon Dioxide 28 Anion Gap 6.0 BUN 23 H Creatinine 0.82 Est Cr Clr Drug Dosing 56.8 Est GFR ( Amer) 96.1 Est GFR (Non-Af Amer) 82.9 BUN/Creatinine Ratio 28.0 H Glucose 82 Calcium 8.2 L Stool Occult Bld Scrn Blood Type Antibody Screen
--- NOTE | 2020-07-01 12:04 | Cardiology Progress Note ---
Date of Service July 01, 2020 Assessment & Plan (1) Atrial flutter with rapid ventricular response: (2) Severe left ventricular systolic dysfunction: (3) Tachycardia induced cardiomyopathy: Patient admitted via the emergency room 06/23/2020, generalized weakness, having been found on the couch for an unknown duration of time. Acute stroke work-up negative. Presented with atrial flutter with rapid ventricular response, refractory to rate control medication. Echocardiogram 06/24/2020 revealed newly diagnosed severe left ventricular systolic dysfunction, global left ventricular hypokinesis ejection fraction 20- 25%. 06/27/2020, underwent transesophageal echocardiogram guided direct-current cardioversion. Had since been transitioned to metoprolol succinate 50 mg daily, amiodarone 200 mg daily, lisinopril 2.5 mg daily. Anticoagulation with heparin to Coumadin initiated, INR 06/30/2020 1.9, anticoagulation discontinued due to melena. Today, 07/01/2020, hemoglobin stable. INR 1.5 after having received a dose of vitamin K. Presumed tachycardia induced cardiomyopathy, although certainly at risk for underlying coronary heart disease. Continue medical management as above. Patient well compensated from a CHF standpoint. He is pending transfer to intermediate, as he certainly is in no shape to live independently at present. Future considerations include resuming his Coumadin, placing him on Eliquis 2.5 mg twice daily, or proceeding without anticoagulation due to concerns of melena and generalized frailty. As long as deemed stable from a hemoglobin standpoint, stable from cardiac standpoint for transfer to rehab/intermediate pending bed availability. Admission and Anticipated Discharge Date Admission Date: June 23, 2020 Subjective Chucky was seen in follow up. He expressed no complaints. Physical Exam Physical Exam: Temp Pulse Resp BP Pulse Ox 36.5 C 56 L 16 142/80 H 99 07/01/20 07:48 07/01/20 09:03 07/01/20 07:48 07/01/20 07:48 07/01/20 07:48 Constitutional: WD/WN, vitals as above Respiratory: normal respiratory effort, lungs clear to auscultation Cardiovascular: RRR, no murmur, no edema Gastrointestinal (Abdomen): normal bowel sounds, soft, nontender, no hepatosplenomegaly Neurologic: Right arm weakness, chronic this hospital stay, no other focal deficits Results & Data ([facility]) Vital Signs (Past 12 Hours) Vital Signs Temp Pulse Pulse Pulse Resp BP Pulse Ox 07/01/20 09:03 56 L 07/01/20 07:48 36.5 C 63 16 142/80 H 99 07/01/20 04:22 36.5 C 62 19 126/71 97 06/30/20 23:58 36.8 C 53 L 16 129/72 99 Laboratory Results Coagulation 07/01/20 Range/Units 07:55 PT 15.5 H (9.0-12.0) Seconds CBC 06/30/20 07/01/20 Range/Units 16:03 07:55 WBC 6.22 (4.8-10.8) K/uL RBC 3.84 L (4.7-6.1) M/uL Hgb 11.5 L 12.3 L (14.0-18.0) g/dL Hct 33.2 L 35.9 L (42-52) % Plt Count 194 (130-400) K/uL Comprehensive Metabolic Panel 07/01/20 Range/Units 07:55 Sodium 135 L (136-145) mmol/L Potassium 3.8 (3.5-5.1) mmol/L Chloride 101 (98-107) mmol/L Carbon Dioxide 28 (21-32) mmol/L BUN 23 H (7-18) mg/dl Creatinine 0.82 (0.6-1.4) mg/dl Glucose 82 (70-99) mg/dl Calcium 8.2 L (8.5-10.1) mg/dl Intake and Output 06/30/20 07/01/20 07/01/20 22:59 06:59 14:59 Intake Total 94.6 / 815.45 240 / 240 Output Total 851 / 852 Balance -756.4 / -36.55 -1 / -36.55 240 / 240 Intake: IV 94.6 / 175.45 HEPARIN SODIUM/DEXTROSE 25,000 94.6 / 175.45 units In 500 ml @ 550 UNITS/HR 11 mls/hr IV .Q24H [facility] Rx#: [id number] Oral 240 / 240 Output: Urine Amount (Catheter) 850 / 850 Lynn/Indwelling 850 / 850 # Bowel Movements 1 / 2 1 / 2
[2020-07-01 16:02] LABS: Hematocrit (blood only) 28.1 % (42-52); Hemoglobin 9.6 g/dL (14.0-18.0)
[2020-07-01] MEDS: HEPARIN SODIUM/DEXTROSE 25,000 UNITS/500 ML BAG IV SCH ×2 (23:46→23:55)
[2020-07-02] MEDS: METOPROLOL SUCC 50MG EXT REL TAB PO SCH (07:41)
[2020-07-02] MEDS: AMIODARONE 200 MG TAB PO SCH (07:41)
[2020-07-02] MEDS: THIAMINE HCL 100 MG TAB PO SCH (07:41)
[2020-07-02] MEDS: LANSOPRAZOLE 30 MG SOLTAB PO SCH ×2 (07:41→21:21)
[2020-07-02] MEDS: FOLIC ACID 1 MG TAB PO SCH (07:42)
[2020-07-02] MEDS: lisinopril 2.5 MG TAB PO SCH (07:42)
[2020-07-02] MEDS: FAMOTIDINE 20 MG in SYRINGE 3 ML IV SCH ×2 (07:45→21:20)
--- NOTE | 2020-07-02 08:54 | Hospitalist Progress Note ---
Date of Service July 02, 2020 Assessment & Plan (1) Atrial flutter with rapid ventricular response: Presented with atrial flutter + rapid ventricular response. Seen in consultation by Cardiology. Received IV heparin, metoprolol, diltiazem, amiodarone. MEHDI guided cardioversion performed 06/27/20 with successful conversion to sinus rhythm. Currently receiving metoprolol and amiodarone. Was anticoagulated with IV heparin transitioning to warfarin- stopped due to GI bleed. Long-term antithrombotic strategy to be determined. (2) Elevated troponin: Serum troponins 0.188 > 0.185 > 0.160. Elevated troponins probably due to tachycardia. (3) Severe left ventricular systolic dysfunction: Echo showed LVEF 20-25%. 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 No clinical signs of CHF. Receiving lisinopril and metoprolol succinate. Follow. (4) Stroke-like symptom: Presented with RUE weakness and confusion. CT head and MRI brain did not show any acute findings. (5) Acute metabolic encephalopathy: Confused at time of admission. CT head and MRI brain did not show any acute findings. Probable metabolic encephalopathy secondary to hyponatremia and AWAIS. (6) AWAIS (acute kidney injury): Serum creatinine 1.72 at time of admission. Acute kidney injury, probably due to volume depletion and/or decreased cardiac output. Received IV fluids. Creatinine today = 0.76. (7) Hyponatremia: Serum Na at time of admission was 129. Possible SIADH (did not have urine osm done at that time). Sodium today = 135. Follow. (8) Gastrointestinal bleed: Nursing noted suspected melena this afternoon; stools heme positive. Hemodynamically stable. Hgb 14.6 (probably volume depleted at time of admission) >> 12.3. Stopped aspirin, heparin, and warfarin. Vitamin K 2.5 mg x 1. Type and screen pRBC's. INR today = 1.3. Conitnue to monitor H/H. Acid suppression with PPI +/- H2 nik. (Using lansoprazole ODT + IV famotidine due to national shortage of IV pantoprazole.) Consult GI. (9) COVID-19 ruled out: SARS-CoV-2 Ag negative on 06/23/20. Will probably need PCR if endoscopy recommended. (10) Do not resuscitate status: As noted. (11) DVT prophylaxis: Was receiving anticoagulation with heparin and warfarin- stopped due to GI bleed. SCD's. Ambulate as able. (12) Discharge planning issues: Anticipated need for skilled care when medically stable and bed available. Admission and Anticipated Discharge Date Admission Date: June 23, 2020 Subjective Recheck for atrial flutter and other problems. Patient seen in their room around 0810. Cough improved. Denies chest pain or SOB. 1 dark stool yesterday. Patient denies abdominal pain, nausea, vomiting. Telemetry data reviewed: SB in 50's. Review of Systems: Constitutional- no fever. Cardiac- as noted above. Pulmonary- as noted above. GI- as noted above. - no urinary symptoms. Otherwise, as noted above. Physical Exam Constitutional: no acute distress Eyes: + anicteric sclerae Respiratory: normal respiratory effort, lungs clear to auscultation Cardiovascular: Rate/Rhythm: regular rate and regular rhythm Vessels: no JVD Extremities: no calf tenderness and no edema Gastrointestinal (Abdomen): normal bowel sounds, soft, nontender, no hepatosplenomegaly Musculoskeletal: Extremities: + extremities abnormal to inspection (LT foot bandaged) and no cyanosis Skin: no rashes, warm and dry shallow ulcers dorsum left foot; no erythema or drainage Psychiatric: Orientation: alert; + not oriented x 3 Results & Data Results & Data ([facility]) Vital Signs (Past 12 Hours) Vital Signs Temp Pulse Pulse Resp BP Pulse Ox 07/02/20 07:57 36.5 C 58 L 18 142/83 H 99 07/02/20 07:14 55 L 07/02/20 03:29 36.5 C 59 L 18 142/82 H 99 07/01/20 22:37 36.5 C 58 L 24 128/67 93 Laboratory Results 07/02/20 10:34 07/02/20 08:09
[2020-07-02 09:34] LABS: BUN Creatinine Ratio 21.6 (10-20); Creatinine Clr Calc Pharmacy 61.2 ml/min; Est GFR (African American) 99.2; Est GFR (Non-African American) 85.6; Potassium 3.7 mmol/L (3.5-5.1)
[2020-07-02 10:59] LABS: INR 1.3 (0.9-1.1); Prothrombin Time 13.5 Seconds (9.0-12.0)
[2020-07-02 11:54] LABS: Hematocrit (blood only) 38.4 % (42-52); Hemoglobin 12.9 g/dL (14.0-18.0); Mean Corpuscular Hemoglobin 32.1 pg (25-34); Mean Corpuscular Hgb Conc 33.6 g/dL (32-36); Mean Corpuscular Volume 95.5 fL (80-100); Mean Platelet Volume 9.2 fL (7.4-10.4); Platelet Count 206 K/uL (130-400); RDW Coefficient of Variation 16.1 % (11.5-14.5); Red Blood Count 4.02 M/uL (4.7-6.1); White Blood Count 7.38 K/uL (4.8-10.8)
--- NOTE | 2020-07-02 12:16 | Cardiology Progress Note ---
Date of Service July 02, 2020 Assessment & Plan (1) Atrial flutter with rapid ventricular response: (2) Severe left ventricular systolic dysfunction: (3) Tachycardia induced cardiomyopathy: (4) Gastrointestinal bleed: Complex 79-year-old patient admitted with atrial flutter and rapid ventricular response refractory to medical therapy. 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 Transesophageal guided direct-current cardioversion performed successfully 06/27/2020. Patient remains in sinus rhythm/sinus bradycardia with 200 mg amiodarone, and 50 mg metoprolol succinate daily. Initially anticoagulated until 06/30/2020. Anticoagulation discontinued due to an episode of melena. Hemoglobin remains stable, however, due to patient's frailty, low body weight (weight less than 60 kg) mild CKD, and advanced age, anticoagulation will remain on hold. Further recommendations regarding restarting anticoagulation per gastroenterology evaluation. Patient is deemed stable from a cardiovascular perspective for transfer to rehab/longterm pending bed availability. Admission and Anticipated Discharge Date Admission Date: June 23, 2020 Subjective Patient seen exam at the bedside. Poor historian. Denies chest pain or unusual shortness of breath. Telemetry reveals sinus bradycardia with heart rate ranging 50 to 70 bpm. Occasional PACs noted. Anticoagulation discontinued due to melena. Hemoglobin remained stable. He offers no complaints at this time. Review of Systems Review of Systems: Unobtainable due to cognitive status Physical Exam Constitutional: + ill appearing Respiratory: normal respiratory effort; no respiratory distress and no labored breathing Auscultation: no crackles, no rales, no rhonchi and no wheezes Cardiovascular: Rate/Rhythm: regular rhythm and + bradycardic Heart Sounds: normal S1 and normal S2 Vessels: no JVD and no carotid bruit Extremities: no edema Gastrointestinal (Abdomen): Inspection/Auscultation: abdomen normal to inspection and normal bowel sounds; abdomen not distended Percussion/Palpation: abdomen soft; abdomen nontender, no guarding and abdomen not rigid Neurologic: moves all extremities and + confused; no focal motor deficits Results & Data ([facility]) Vital Signs (Past 12 Hours) Vital Signs Temp Pulse Pulse Resp BP Pulse Ox 07/02/20 07:57 36.5 C 58 L 18 142/83 H 99 07/02/20 07:14 55 L 07/02/20 03:29 36.5 C 59 L 18 142/82 H 99
--- NOTE | 2020-07-02 13:29 | Electrocardiogram Report ---
Test Reason : Blood Pressure : / mmHG Vent. Rate : 058 BPM Atrial Rate : 058 BPM P-R Int : 146 ms QRS Dur : 094 ms QT Int : 536 ms P-R-T Axes : 050 076 081 degrees QTc Int : 526 ms Sinus bradycardia with Premature atrial complexes Anteroseptal infarct (cited on or before 23-JUN-2020) T wave abnormality, consider anterolateral ischemia Prolonged QT Abnormal ECG When compared with ECG of 01-JUL-2020 15:52, (unconfirmed) Premature atrial complexes are now Present Confirmed by Dontae Lucas ([id number]) on 07/02/2020 1:29:29 PM Referred By: REFERRED SELF Confirmed By:Dontae Lucas
--- NOTE | 2020-07-02 13:29 | Electrocardiogram Report ---
Test Reason : Blood Pressure : / mmHG Vent. Rate : 060 BPM Atrial Rate : 060 BPM P-R Int : 150 ms QRS Dur : 094 ms QT Int : 536 ms P-R-T Axes : 046 077 081 degrees QTc Int : 536 ms Sinus rhythm Premature atrial complexes Anteroseptal infarct (cited on or before 23-JUN-2020) T wave abnormality, consider anterolateral ischemia Prolonged QT Abnormal ECG When compared with ECG of 27-JUN-2020 07:55, Premature supraventricular complexes are no longer Present QT has lengthened Confirmed by Dontae Lucas ([id number]) on 07/02/2020 1:28:51 PM Referred By: REFERRED SELF Confirmed By:Dontae Lucas
--- NOTE | 2020-07-02 13:39 | Electrocardiogram Report ---
Test Reason : Blood Pressure : / mmHG Vent. Rate : 056 BPM Atrial Rate : 056 BPM P-R Int : 160 ms QRS Dur : 070 ms QT Int : 492 ms P-R-T Axes : 072 085 -27 degrees QTc Int : 474 ms Poor data quality, interpretation may be adversely affected Sinus bradycardia with Premature atrial complexes Septal infarct (cited on or before 23-JUN-2020) Abnormal ECG When compared with ECG of 01-JUL-2020 15:53, (unconfirmed) QRS duration has decreased Serial changes of evolving Septal infarct Present Confirmed by Dontae Lucas ([id number]) on 07/02/2020 1:39:17 PM Referred By: REFERRED SELF Confirmed By:Dontae Lucas
[2020-07-03 08:01] LABS: Hematocrit (blood only) 30.9 % (42-52); Hemoglobin 10.3 g/dL (14.0-18.0)
[2020-07-03] MEDS: FOLIC ACID 1 MG TAB PO SCH (08:22)
[2020-07-03] MEDS: lisinopril 2.5 MG TAB PO SCH (08:22)
[2020-07-03] MEDS: METOPROLOL SUCC 50MG EXT REL TAB PO SCH (08:22)
[2020-07-03] MEDS: PANTOprazole 40 MG TAB PO SCH ×2 (08:22→21:10)
[2020-07-03] MEDS: THIAMINE HCL 100 MG TAB PO SCH (08:22)
[2020-07-03] MEDS: AMIODARONE 200 MG TAB PO SCH (08:22)
--- NOTE | 2020-07-03 12:29 | Hospitalist Progress Note ---
Date of Service July 03, 2020 Assessment & Plan (1) Atrial flutter with rapid ventricular response: Presented with atrial flutter + rapid ventricular response. Seen in consultation by Cardiology. Received IV heparin, metoprolol, diltiazem, amiodarone. MEHDI guided cardioversion performed 06/27/20 with successful conversion to sinus rhythm. Currently receiving metoprolol and amiodarone. Was anticoagulated with IV heparin transitioning to warfarin- stopped due to GI bleed. Long-term antithrombotic strategy to be determined. (2) Elevated troponin: Serum troponins 0.188 > 0.185 > 0.160. Elevated troponins probably due to tachycardia. (3) Severe left ventricular systolic dysfunction: Echo showed LVEF 20-25%. 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 No clinical signs of CHF. Receiving lisinopril and metoprolol succinate. Follow. (4) Stroke-like symptom: Presented with RUE weakness and confusion. CT head and MRI brain did not show any acute findings. (5) Acute metabolic encephalopathy: Confused at time of admission. CT head and MRI brain did not show any acute findings. Probable underlying dementia + metabolic encephalopathy secondary to hyponatremia and AWAIS. (6) AWAIS (acute kidney injury): Serum creatinine 1.72 at time of admission. Acute kidney injury, probably due to volume depletion and/or decreased cardiac output. Received IV fluids. Creatinine yesterday = 0.76. (7) Hyponatremia: Serum Na at time of admission was 129. Possible SIADH (did not have urine osm done at that time). Sodium yesterday = 135. Follow. (8) Gastrointestinal bleed: Nursing noted suspected melena this afternoon; stools heme positive. Hemodynamically stable. Hgb 14.6 (probably volume depleted at time of admission) >> 12.3. Stopped aspirin, heparin, and warfarin. Vitamin K 2.5 mg x 1. Type and screen pRBC's. INR yesterday = 1.3. Continue PPI. Follow H/H. Consult GI. (9) COVID-19 ruled out: SARS-CoV-2 Ag negative on 06/23/20. Will need PCR if endoscopy recommended. (10) Do not resuscitate status: As noted. (11) DVT prophylaxis: Was receiving anticoagulation with heparin and warfarin- stopped due to GI bleed. SCD's. Ambulate as able. (12) Discharge planning issues: Anticipated need for skilled care when medically stable and bed available. Admission and Anticipated Discharge Date Admission Date: June 23, 2020 Subjective Recheck for atrial flutter and other problems. Patient seen in their room around 1000. Rare cough. Denies chest pain or SOB. Last reported dark stool 07/01. Patient denies abdominal pain, nausea, vomiting. Telemetry data reviewed: sinus arrhythmia in 50's. Review of Systems: Constitutional- no fever. Cardiac- as noted above. Pulmonary- as noted above. GI- as noted above. - no urinary symptoms. Otherwise, as noted above. Physical Exam Constitutional: no acute distress Eyes: + anicteric sclerae Respiratory: normal respiratory effort, lungs clear to auscultation Cardiovascular: Rate/Rhythm: regular rate and regular rhythm Vessels: no JVD Extremities: no calf tenderness and no edema Gastrointestinal (Abdomen): normal bowel sounds, soft, nontender, no hepatosplenomegaly Musculoskeletal: Extremities: + extremities abnormal to inspection (LT foot bandaged) and no cyanosis Skin: no rashes, warm and dry Psychiatric: Orientation: alert; + not oriented x 3 Results & Data Results & Data ([facility]) Vital Signs (Past 12 Hours) Vital Signs Temp Pulse Pulse Pulse Resp BP Pulse Ox 07/03/20 12:12 36.4 C L 46 L 18 105/59 L 98 07/03/20 08:06 36.4 C L 55 L 18 146/69 H 100 07/03/20 08:00 51 L 07/03/20 04:00 36.0 C L 72 16 135/71 95 Laboratory Results Laboratory Results - last 24 hr 07/03/20 07:36 Hgb 10.3 L Hct 30.9 L
[2020-07-04 07:29] LABS: Hematocrit (blood only) 33.2 % (42-52); Hemoglobin 11.2 g/dL (14.0-18.0); Mean Corpuscular Hemoglobin 32.2 pg (25-34); Mean Corpuscular Hgb Conc 33.7 g/dL (32-36); Mean Corpuscular Volume 95.4 fL (80-100); Mean Platelet Volume 9.3 fL (7.4-10.4); Platelet Count 205 K/uL (130-400); RDW Standard Deviation 55.6 fL (36.4-46.3); Red Blood Count 3.48 M/uL (4.7-6.1); White Blood Count 6.33 K/uL (4.8-10.8)
[2020-07-04 07:40] LABS: INR 1.1 (0.9-1.1); Prothrombin Time 11.9 Seconds (9.0-12.0)
[2020-07-04] MEDS: PANTOprazole 40 MG TAB PO SCH ×2 (07:57→20:07)
[2020-07-04] MEDS: AMIODARONE 200 MG TAB PO SCH (07:57)
[2020-07-04] MEDS: lisinopril 2.5 MG TAB PO SCH (07:57)
[2020-07-04] MEDS: THIAMINE HCL 100 MG TAB PO SCH (07:58)
[2020-07-04] MEDS: FOLIC ACID 1 MG TAB PO SCH (07:58)
[2020-07-04] MEDS: METOPROLOL SUCC 50MG EXT REL TAB PO SCH (07:58)
[2020-07-04 08:00] LABS: BUN Creatinine Ratio 20.3 (10-20); Calcium 8.1 mg/dl (8.5-10.1); Creatinine Clr Calc Pharmacy 59.6 ml/min; Est GFR (African American) 97.6; Est GFR (Non-African American) 84.2; Magnesium 2.1 mg/dl (1.8-2.4); Potassium 3.9 mmol/L (3.5-5.1)
[2020-07-04] MEDS ORDERED: GLUCOSE 10 TABS/TUBE PO ONE (08:41)
[2020-07-04] MEDS ORDERED: GLUCOSE 40% GEL 15 GM TUBE PO PRN (08:41)
[2020-07-04] MEDS ORDERED: GLUCOSE 40% GEL 15 GM TUBE PO STA (08:41)
[2020-07-04] MEDS ORDERED: D5NSS + 20MEQ KCL 20 MEQ/1,000 ML BAG IV SCH (08:45)
--- NOTE | 2020-07-04 10:34 | Gastrointestinal Consultation ---
Date of Consultation July 04, 2020 Assessment & Plan (1) Gastrointestinal bleed: 79 year old male admitted w/ atrial flutter w/ RVR successfully cardioverted who developed anemia of 9.6 w/ dark stools while transition form IV hep to coumadin. Was made NPO, held blood thinner and has had 1-2 additional episodes of dark stools. Today hemodynamically stable on PPI w/ HGB 11, BUN 16 and INR 1.1. Would recommend EGD evaluation to rule out PUD etc. Will need COVID - discussed with ENDO staff NPO for EGD Today Trend HGB Transfuse PRN Continue IV PPI Supervising Physician Co-Signing Physician Notes Attg add: I interviewed and examined pt, reviewed chart and labs. Pt with dark stool, stable hgb. Plan EGD today. History of Present Illness Reason for Consultation: melena Requesting Physician: Fabio Attending Physician: George Mccarthy MD History of Present Illness 79 year old male admitted w/ atrial flutter w/ RVR, cardiology consultation, started on IV heparin in addition to met/dilt/amiodarone and eventual successful cardioversion. He was transitioned to coumadin but later developed dark stools - GI asked to evaluate. Pt notes he has had dark, black stools for 2/3 days. Last BM last last evening. No BRB. No abd pain. No nausea/vomiting. No heartburn. No dysphagia. He was made NPO and started on IV PPI. This AM, HGB 11, w/o BUN elevation. INR in 1.1 Is unsure of prior EGD/Colonoscopy. I currently do not have access to [email or web address] EMR. Allergies Allergy/AdvReac Type Severity Reaction Status Date / Time No Known Allergies Allergy Unverified 06/23/20 13:19 Home Medications Medication Instructions Recorded Confirmed Type No Known Home Medications 06/23/20 06/23/20 History Patient History Surgical History History of knee surgery left Family History Other Unknown family medical history Social History Smoking Status: Never smoker Hx Alcohol Use: No Hx Substance Use: No Preferred Language: Canadian Communication Ability: Impaired Fine Chemicals Operator Required: No Beliefs That Will Affect Care: None marital status: / Current Living Situation: Alone Other Information That Helps Us Care for You: No Feels Safe at Home: Yes Safety Concerns: Feels Safe At This Time Assistive Devices: Glasses and Walker Review of Systems Constitutional: no fever, no chills and no fatigue Respiratory: no cough and no dyspnea Physical Exam Constitutional: well nourished and average body habitus; no acute distress Neck: trachea midline Respiratory: normal respiratory effort, lungs clear to auscultation Cardiovascular: Rate/Rhythm: regular rate and regular rhythm Heart Sounds: no click, no gallop, no murmur and no cardiac rub Gastrointestinal (Abdomen): Inspection/Auscultation: normal bowel sounds Percussion/Palpation: abdomen soft; abdomen nontender, no guarding and abdomen not rigid Skin: no rashes, warm and dry Results & Data ([facility]) Vital Signs (Past 12 Hours) Vital Signs Temp Pulse Pulse Resp BP Pulse Ox 07/04/20 08:04 100 07/04/20 07:42 36.3 C L 73 18 135/72 90 07/04/20 03:16 36.5 C 77 18 112/58 L 97 07/04/20 01:31 48 L 07/03/20 23:24 36.6 C 81 16 118/69 98 Laboratory Results 07/04/20 07/04/20 07/04/20 Range/Units 10:25 10:25 09:11 WBC (4.8-10.8) K/uL RBC (4.7-6.1) M/uL Hgb (14.0-18.0) g/dL Hct (42-52) % MCV (80-100) fL MCH (25-34) pg MCHC (32-36) g/dL RDW Std Deviation (36.4-46.3) fL RDW Coeff of Iron (11.5-14.5) % Plt Count (130-400) K/uL MPV (7.4-10.4) fL PT (9.0-12.0) Seconds INR (0.9-1.1) Sodium (136-145) mmol/L Potassium (3.5-5.1) mmol/L Chloride (98-107) mmol/L Carbon Dioxide (21-32) mmol/L Anion Gap (3-11) BUN (7-18) mg/dl Creatinine (0.6-1.4) mg/dl Est Cr Clr Drug Dosing ml/min Est GFR ( Amer) Est GFR (Non-Af Amer) BUN/Creatinine Ratio (10-20) Glucose (70-99) mg/dl POC Glucose 83 (70-99) mg/dl Calcium (8.5-10.1) mg/dl Magnesium (1.8-2.4) mg/dl COVID-19 Eval Order Covid19 [facility] SARS-CoV-2, RNA, NAAT Pending 07/04/20 07/04/20 07/04/20 Range/Units 08:35 06:14 06:14 WBC 6.33 (4.8-10.8) K/uL RBC 3.48 L (4.7-6.1) M/uL Hgb 11.2 L (14.0-18.0) g/dL Hct 33.2 L (42-52) % MCV 95.4 (80-100) fL MCH 32.2 (25-34) pg MCHC 33.7 (32-36) g/dL RDW Std Deviation 55.6 H (36.4-46.3) fL RDW Coeff of Iron 16.0 H (11.5-14.5) % Plt Count 205 (130-400) K/uL MPV 9.3 (7.4-10.4) fL PT 11.9 (9.0-12.0) Seconds INR 1.1 (0.9-1.1) Sodium (136-145) mmol/L Potassium (3.5-5.1) mmol/L Chloride (98-107) mmol/L Carbon Dioxide (21-32) mmol/L Anion Gap (3-11) BUN (7-18) mg/dl Creatinine (0.6-1.4) mg/dl Est Cr Clr Drug Dosing ml/min Est GFR ( Amer) Est GFR (Non-Af Amer) BUN/Creatinine Ratio (10-20) Glucose (70-99) mg/dl POC Glucose 48 L* (70-99) mg/dl Calcium (8.5-10.1) mg/dl Magnesium (1.8-2.4) mg/dl COVID-19 Eval Order SARS-CoV-2, RNA, NAAT 07/04/20 Range/Units 06:14 WBC (4.8-10.8) K/uL RBC (4.7-6.1) M/uL Hgb (14.0-18.0) g/dL Hct (42-52) % MCV (80-100) fL MCH (25-34) pg MCHC (32-36) g/dL RDW Std Deviation (36.4-46.3) fL RDW Coeff of Iron (11.5-14.5) % Plt Count (130-400) K/uL MPV (7.4-10.4) fL PT (9.0-12.0) Seconds INR (0.9-1.1) Sodium 133 L (136-145) mmol/L Potassium 3.9 (3.5-5.1) mmol/L Chloride 99 (98-107) mmol/L Carbon Dioxide 27 (21-32) mmol/L Anion Gap 7.0 (3-11) BUN 16 (7-18) mg/dl Creatinine 0.79 (0.6-1.4) mg/dl Est Cr Clr Drug Dosing 59.6 ml/min Est GFR ( Amer) 97.6 Est GFR (Non-Af Amer) 84.2 BUN/Creatinine Ratio 20.3 H (10-20) Glucose 66 L (70-99) mg/dl POC Glucose (70-99) mg/dl Calcium 8.1 L (8.5-10.1) mg/dl Magnesium 2.1 (1.8-2.4) mg/dl COVID-19 Eval Order SARS-CoV-2, RNA, NAAT
[2020-07-04] MEDS ORDERED: LIDOCAINE HCL 2% 2 ML VIAL/AMP(20MG/ML) INFIL ONE (11:22)
[2020-07-04] MEDS ORDERED: PROPOFOL IV EMULSION 10 MG/ML 20 ML VIAL IV ONE (11:22)
--- NOTE | 2020-07-04 11:39 | Anesthesiology Consultation ---
Date of Service July 04, 2020 Assessment & Plan (1) Encounter for pre-operative examination: Chart Review Chart Review: Acceptable Risk for Surgery and Patient NOT seen in Pre Admission Testing Consults Requested none ASA ASA4 Proposed Anesthesia Anesthesia Type: MAC Risk / Benefits Reviewed With: PT / POA / Parent / Guardian, Accepts Plan and In formed Consent Obtained History Surgery Operation Date: 06/27/20 10:00 Proposed Procedures p Transesophageal Echo w/Anesthesia - Richard Katz DO s Cardioversion Delivery Engineer w/Anesthesia - Richard Katz DO Operation Date: 07/04/20 17:45 Proposed Procedures p Esophagogastroduodenoscopy Dr Rodríguez - Dilia Gonzalez MD Height/Weight Height: 5 ft 8 in Weight: 57.5 kg Allergies Allergy/AdvReac Type Severity Reaction Status Date / Time No Known Allergies Allergy Unverified 06/23/20 13:19 Medications Home Medications Medication Instructions Recorded Confirmed Last Taken No Known Home Medications 06/23/20 06/23/20 Unknown Active Medications Generic Name Dose Route Start Last Admin Trade Name Freq PRN Reason Stop Dose Admin Amiodarone HCl 200 mg 06/27/20 10:00 07/04/20 07:57 Amiodarone 200 Mg Tab PO 07/27/20 09:59 200 mg QAM JACQUE Administration Folic Acid 1 mg 06/25/20 09:45 07/04/20 07:58 Folic Acid 1 Mg Tab PO 07/25/20 09:44 Not Given QAM JACQUE Potassium Chloride/Dextrose/Sod Cl 20 meq in 1,000 mls @ 100 mls/hr 07/04/20 08:45 07/04/20 09:44 D5nss + 20meq Kcl IV 07/04/20 18:44 100 mls/hr .Q10H JACQUE Administration Lisinopril 2.5 mg 06/28/20 09:00 07/04/20 07:57 Lisinopril 2.5 Mg Tab PO 07/28/20 08:59 2.5 mg QAM JACQUE Administration Metoprolol Succinate 50 mg 06/29/20 09:00 07/04/20 07:58 Metoprolol Succ 50mg Ext Rel Tab PO 07/29/20 08:59 50 mg QAM JACQUE Administration Pantoprazole Sodium 40 mg 07/03/20 09:00 07/04/20 07:57 Pantoprazole 40 Mg Tab PO 08/02/20 08:59 40 mg BID JACQUE Administration Thiamine HCl 100 mg 06/24/20 19:15 07/04/20 07:58 Thiamine Hcl 100 Mg Tab PO 07/24/20 19:14 Not Given QAM JACQUE NPO Date Last Intake of Fluids: 07/04/20 Time Last Intake of Fluids: 08:00 Date Last Intake of Solids: 06/26/20 Time Last Intake of Solids: 18:30 Exercise / Class Metabolic Activity II 4-5 Yardwork/Stairs/Walk up hill Past Family History Family History Other Unknown family medical history Past Surgical History Surgical History History of knee surgery left Past Anesthesia History No Hx of Anesthesia Complications and No Family Hx of Anesthesia Complications History of PONV No Hx of PONV and No Hx of Motion Sickness Social History Smoking Status: Never smoker Hx Alcohol Use: No Hx Substance Use: No Physical Exam Vital Signs Last Vital Signs Temp 36.5 C 07/04/20 11:11 Pulse 51 L 07/04/20 11:11 Resp 16 07/04/20 11:11 BP 128/64 07/04/20 11:11 Pulse Ox 98 07/04/20 11:11 ENMT Mouth: + poor dentition Thyromental Distance: > or= 3.5 Finger Breadths Mallampati Class: II Neck normal visual inspection and + facial hair Respiratory normal respiratory effort Auscultation: lungs clear to auscultation bilaterally Cardiovascular Rate/Rhythm: regular rate and regular rhythm Neurologic + confused Psychiatric Orientation: alert Testing Laboratory Results 07/04/20 06:14 07/04/20 06:14 PT 11.9 Seconds (9.0-12.0) 07/04/20 06:14 INR 1.1 (0.9-1.1) 07/04/20 06:14 APTT 64.9 Seconds (21.0-31.0) H* 06/30/20 08:00 Hemoglobin A1c 5.5 % (4.5-5.6) 06/24/20 06:25 Urine Color Dark Yellow 06/24/20 02:20 Urine Appearance Clear (Clear) 12/18/20 02:20 Urine pH 5.0 (4.5-7.5) 06/24/20 02:20 Ur Specific [place] 1.038 (1.000-1.030) H 06/24/20 02:20 Urine Protein Trace (Negative) H 06/24/20 02:20 Urine Glucose (UA) Negative (Negative) 06/24/20 02:20 Urine Ketones Trace (Negative) H 06/24/20 02:20 Urine Nitrite Negative (Negative) 06/24/20 02:20 Ur Leukocyte Esterase Trace (Negative) H 06/24/20 02:20 Urine WBC (Auto) 1-5 /hpf (0-5) 06/24/20 02:20 Urine RBC (Auto) 10-30 /hpf (0-4) H 06/24/20 02:20 U Hyaline Cast (Auto) 1-5 /lpf (0-5) 06/24/20 02:20 U Epithel Cells (Auto) >30 /lpf (0-5) H 06/24/20 02:20 Urine Bacteria (Auto) Negative (Negative) 06/24/20 02:20 Blood Type O Positive 06/30/20 16:03 Antibody Screen NEGATIVE 06/30/20 16:03 06/23/20 11:54 Aerobic Blood Culture - Final Blood No growth in Aerobic bottle after 5 days. Anaerobic Blood Culture - Final No growth in Anaerobic bottle after 5 days. 06/23/20 11:53 Aerobic Blood Culture - Final Blood No growth in Aerobic bottle after 5 days. Anaerobic Blood Culture - Final No growth in Anaerobic bottle after 5 days. 07/04/20 07/04/20 09:11 08:35 POC Glucose 83 48 L* Electrocardiogram Date: 06/25/20 Findings: + AFIB @ (a flutter @144) Echocardiogram Date: 06/24/20 EF: 20-25 LV Function: dysfunctional
[2020-07-04] MEDS ORDERED: ONDANSETRON INJ 2 MG/ML 2 ML VIAL ONE (12:08)
[2020-07-04] MEDS ORDERED: ePHEDrine sulfate 50 MG/ML SYR ONE (12:08)
[2020-07-04] MEDS ORDERED: PANTOPRAZOLE BOLUS/DRIP 1 EA IV STA (12:38)
--- NOTE | 2020-07-04 12:39 | GI REPORT ---
Patient Name: Chucky Paredes Procedure Date: 07/04/2020 11:41 AM Date of : 1940 Admit Type: Inpatient Age: 79 Gender: Male Attending MD: Dilia Gonzalez MD Procedure: Upper GI endoscopy Providers: Dliia Gonzalez MD Referring MD: George Mccarthy Indications: Melena Medicines: See the Anesthesia note for documentation of the administered medications Complications: No immediate complications. Estimated Blood Loss: Estimated blood loss: none. Procedure: Pre-Anesthesia Assessment: - ASA Grade Assessment: IV - A patient with severe systemic disease that is a constant threat to life. - Pre-procedure physical examination revealed no contraindications to sedation. After obtaining informed consent, the endoscope was passed under direct vision. Throughout the procedure, the patient's blood pressure, pulse, and oxygen saturations were monitored continuously. The Endoscope was introduced through the mouth, and advanced to the second part of duodenum. The upper GI endoscopy was accomplished without difficulty. The patient tolerated the procedure well. Findings: The examined esophagus was normal. There were multiple erosions in the body and antrum of the stomach. Multiple biopsies done from throughout the body of the stomach. The pylorus was patulous. The duodenal bulb was foreshortened. There was a large cratered duodenal ulcer on the posterior duodenal wall with an adherent clot that could not be dislodged with vigorous lavage or gentle suction. There was no oozing. The second portion of the duodenum was normal. Impression: Cratered duodenal ulcer on posterior wall of duodenla bulb with adherent clot. Recommendation: - Discharge patient to floor. PPI gtt x 3 days carafate twice daily. Full liquids today. Follow Hgb twice daily and transfuse for hgb < 7. Follow up bx for Hp. Hold ASA x 3 days, anticoagulation for 5 days. Dilia Gonzalez M.D. Dilia Gonzalez MD 07/04/2020 12:38:57 PM This report has been signed electronically. Note Initiated On: 07/04/2020 11:41 AM Number of Addenda: 0 I attest to the content of the Intraoperative Record and orders documented therein, exceptions below {[id number]}
--- NOTE | 2020-07-04 12:41 | Anesthesiology Progress Note ---
Date of Service July 04, 2020 Anesthesia Post Procedure Vital Signs Vital Signs: Temp Pulse Pulse Resp BP Pulse Ox 07/04/20 12:29 47 L 18 136/78 100 07/04/20 12:14 56 L 16 103/58 L 99 07/04/20 11:11 36.5 C 51 L 16 128/64 98 07/04/20 10:49 36.4 C L 46 L 18 100/62 94 07/04/20 08:04 100 07/04/20 08:00 57 L 07/04/20 07:42 36.3 C L 73 18 135/72 90 07/04/20 03:16 36.5 C 77 18 112/58 L 97 07/04/20 01:31 48 L 07/03/20 23:24 36.6 C 81 16 118/69 98 07/03/20 20:49 36.3 C L 79 18 117/62 99 07/03/20 19:53 47 L 07/03/20 16:57 53 L 07/03/20 15:28 36.5 C 51 L 18 119/70 99 Transfer of Care Handoff Completed per policy Notes Mental Status: alert / awake / arousable (at baseline mental status) Patient Amnestic to Procedure: Yes Nausea / Vomiting: adequately controlled Pain: adequately controlled Airway Patency, RR, SpO2: stable & adequate BP & HR: stable & adequate Hydration State: stable & adequate Anesthetic Complications: no major complications apparent
[2020-07-04] MEDS ORDERED: PANTOprazole 80 MG in DEXTROSE 5% 100 ML IV ONE (13:00)
[2020-07-04] MEDS: PANTOprazole 40 MG in DEXTROSE 5% 100 ML IV SCH ×3 (13:51→23:45)
--- NOTE | 2020-07-04 15:37 | Cardiology Progress Note ---
Date of Service July 04, 2020 Assessment & Plan (1) Atrial flutter with rapid ventricular response: (2) Severe left ventricular systolic dysfunction: (3) Tachycardia induced cardiomyopathy: (4) Gastrointestinal bleed: Complex 79-year-old patient admitted with atrial flutter and rapid ventricular response refractory to medical therapy. 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 Transesophageal guided direct-current cardioversion performed successfully 06/27/2020. Anticoagulation discontinued 07/01 due to an episode of melena. EGD performed today reporting large, cratered duodenal ulcer. EGD results discussed with coil assembler recommending holding anticoagulation an additional 7 days post EGD. Consider low-dose Eliquis, 2.5 mg twice daily in future if there are no signs/symptoms of recurrent GI blood loss. Continue rhythm control strategy with amiodarone and metoprolol. Continue telemetry monitoring while hospitalized. Admission and Anticipated Discharge Date Admission Date: June 23, 2020 Subjective Patient seen and examined at the bedside. EGD performed earlier today without complications. Large, cratered duodenal ulcer on the posterior duodenal wall with adherent clot reported. Hemoglobin remained stable. Patient denies chest pain or shortness of breath. Telemetry demonstrates sinus bradycardia. Review of Systems Review of Systems: All systems reviewed & are unremarkable except as noted in HPI & below Physical Exam Constitutional: + ill appearing Respiratory: normal respiratory effort; no respiratory distress and no labored breathing Auscultation: no crackles, no rales, no rhonchi and no wheezes Cardiovascular: Rate/Rhythm: regular rhythm and + bradycardic Heart Sounds: normal S1 and normal S2 Vessels: no JVD and no carotid bruit Extremities: no edema Gastrointestinal (Abdomen): Inspection/Auscultation: abdomen normal to inspection and normal bowel sounds; abdomen not distended Percussion/Palpation: abdomen soft; abdomen nontender, no guarding and abdomen not rigid Neurologic: moves all extremities and + confused; no focal motor deficits Results & Data ([facility]) Vital Signs (Past 12 Hours) Vital Signs Temp Pulse Pulse Resp BP Pulse Ox 07/04/20 15:28 36.5 C 85 20 110/55 L 97 07/04/20 15:10 47 L 07/04/20 13:06 35.7 C L 92 H 20 125/71 93 07/04/20 12:42 57 L 18 146/71 H 100 07/04/20 12:29 47 L 18 136/78 100 07/04/20 12:14 56 L 16 103/58 L 99 07/04/20 11:11 36.5 C 51 L 16 128/64 98 07/04/20 10:49 36.4 C L 46 L 18 100/62 94 07/04/20 08:04 100 07/04/20 08:00 57 L 07/04/20 07:42 36.3 C L 73 18 135/72 90
[2020-07-04] MEDS: SUCRALFATE 1 GM/10 ML UDC PO SCH (20:07)
--- NOTE | 2020-07-04 21:11 | Hospitalist Progress Note ---
Date of Service July 04, 2020 Assessment & Plan (1) Atrial flutter with rapid ventricular response: Presented with atrial flutter + rapid ventricular response. Seen in consultation by Cardiology. Received IV heparin, metoprolol, diltiazem, amiodarone. MEHDI guided cardioversion performed 06/27/20 with successful conversion to sinus rhythm. Currently receiving metoprolol and amiodarone. Was anticoagulated with IV heparin transitioning to warfarin- stopped due to GI bleed. EGD showed duodenal ulcer and gastritis as discussed below. Should be OK to start warfarin in 7 days if no further bleeding. (2) Elevated troponin: Serum troponins 0.188 > 0.185 > 0.160. Elevated troponins probably due to tachycardia. (3) Severe left ventricular systolic dysfunction: Echo showed LVEF 20-25%. 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 No clinical signs of CHF. Receiving lisinopril and metoprolol succinate. Follow. (4) Stroke-like symptom: Presented with RUE weakness and confusion. CT head and MRI brain did not show any acute findings. (5) Acute metabolic encephalopathy: Confused at time of admission. CT head and MRI brain did not show any acute findings. Probable underlying dementia + metabolic encephalopathy secondary to hyponatremia and AWAIS. (6) AWAIS (acute kidney injury): Serum creatinine 1.72 at time of admission. Acute kidney injury, probably due to volume depletion and/or decreased cardiac output. Received IV fluids. Creatinine today = 0.79. (7) Hyponatremia: Serum Na at time of admission was 129. Possible SIADH (did not have urine osm done at that time). Sodium yesterday = 133. Follow. (8) Gastrointestinal bleed: Nursing noted suspected melena 06/30; stools heme positive. Hemodynamically stable. Hgb 14.6 (probably volume depleted at time of admission) >> 12.3. Stopped aspirin, heparin, and warfarin. Vitamin K 2.5 mg x 1. Started PPI. INR today = 1.1. Hgb today = 11.2. GI consulted. EGD showed: multiple gastric erosions cratered duodenal ulcer with adherent clot Pantoprazole infusion + sucralfate recommended. Monitor H/H. Hold warfarin for another 7 days. (9) COVID-19 ruled out: SARS-CoV-2 Ag negative on 06/23/20. SARS-CoV-2 PCR negative on 07/04/20. (10) Do not resuscitate status: As noted. (11) DVT prophylaxis: Was receiving anticoagulation with heparin and warfarin- stopped due to GI bleed . SCD's. Ambulate as able. (12) Discharge planning issues: Anticipated need for skilled care when medically stable and bed available. Admission and Anticipated Discharge Date Admission Date: June 23, 2020 Subjective Recheck for atrial flutter and other problems. Patient seen in their room around 1350. Underwent EGD this morning. No chest pain, cough, SOB. Last reported dark stool 07/01. Patient denies abdominal pain, nausea, vomiting. Telemetry data reviewed: sinus arrhythmia in 50's, PAC's. Review of Systems: Constitutional- no fever. Cardiac- as noted above. Pulmonary- as noted above. GI- as noted above. - no urinary symptoms. Otherwise, as noted above. Physical Exam Constitutional: no acute distress Eyes: + anicteric sclerae Respiratory: normal respiratory effort, lungs clear to auscultation Cardiovascular: Rate/Rhythm: regular rate and regular rhythm Vessels: no JVD Extremities: no calf tenderness and no edema Gastrointestinal (Abdomen): normal bowel sounds, soft, nontender, no hepatosplenomegaly Musculoskeletal: Extremities: + extremities abnormal to inspection (LT foot bandaged) and no cyanosis Skin: no rashes, warm and dry Psychiatric: Orientation: alert; + not oriented x 3 Results & Data Results & Data ([facility]) Vital Signs (Past 12 Hours) Vital Signs Temp Pulse Pulse Resp BP Pulse Ox 07/04/20 19:22 36.3 C L 57 L 16 100/59 L 97 07/04/20 15:28 36.5 C 85 20 110/55 L 97 07/04/20 15:10 47 L 07/04/20 13:06 35.7 C L 92 H 20 125/71 93 07/04/20 12:42 57 L 18 146/71 H 100 07/04/20 12:29 47 L 18 136/78 100 07/04/20 12:14 56 L 16 103/58 L 99 07/04/20 11:11 36.5 C 51 L 16 128/64 98 07/04/20 10:49 36.4 C L 46 L 18 100/62 94 Laboratory Results 07/04/20 06:14 07/04/20 06:14
[2020-07-05] MEDS: PANTOprazole 40 MG in DEXTROSE 5% 100 ML IV SCH ×4 (04:26→19:34)
[2020-07-05] MEDS: METOPROLOL SUCC 50MG EXT REL TAB PO SCH (07:41)
[2020-07-05] MEDS: lisinopril 2.5 MG TAB PO SCH (07:43)
[2020-07-05] MEDS: FOLIC ACID 1 MG TAB PO SCH (07:43)
[2020-07-05] MEDS: SUCRALFATE 1 GM/10 ML UDC PO SCH ×2 (07:43→21:28)
[2020-07-05] MEDS: AMIODARONE 200 MG TAB PO SCH (07:43)
[2020-07-05] MEDS: THIAMINE HCL 100 MG TAB PO SCH (07:43)
--- NOTE | 2020-07-05 11:29 | Cardiology Progress Note ---
Date of Service July 05, 2020 Assessment & Plan (1) Atrial flutter with rapid ventricular response: (2) Severe left ventricular systolic dysfunction: (3) Tachycardia induced cardiomyopathy: (4) Gastrointestinal bleed: Complex 79-year-old patient admitted with atrial flutter and rapid ventricular response refractory to medical therapy. 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 Transesophageal guided direct-current cardioversion performed successfully 06/27/2020. Anticoagulation discontinued 07/01 due to an episode of melena. EGD performed 07/04 reporting large, cratered duodenal ulcer. EGD results discussed with short range air defense artillery recommending IV PPI and holding anticoagulation an additional 7 days post EGD. Patient remains in sinus rhythm/sinus bradycardia on monitor. Consider low-dose Eliquis, 2.5 mg twice daily in future if there are no signs/symptoms of recurrent GI blood loss. Continue rhythm control strategy with amiodarone and metoprolol. Continue telemetry monitoring while hospitalized. Admission and Anticipated Discharge Date Admission Date: June 23, 2020 Subjective Patient seen and examined at bedside. Denies chest pain or shortness of breath. Poor historian. Anticoagulation on hold. No signs/symptoms of GI blood loss. Offers no complaints at this time. Review of Systems Review of Systems: All systems reviewed & are unremarkable except as noted in Subjective Physical Exam Constitutional: + ill appearing Respiratory: normal respiratory effort; no respiratory distress and no labored breathing Auscultation: no crackles, no rales, no rhonchi and no wheezes Cardiovascular: Rate/Rhythm: regular rhythm and + bradycardic Heart Sounds: normal S1 and normal S2 Vessels: no JVD and no carotid bruit Extremities: no edema Gastrointestinal (Abdomen): Inspection/Auscultation: abdomen normal to inspection and normal bowel sounds; abdomen not distended Percussion/Palpation: abdomen soft; abdomen nontender, no guarding and abdomen not rigid Neurologic: moves all extremities and + confused; no focal motor deficits Results & Data ([facility]) Vital Signs (Past 12 Hours) Vital Signs Temp Pulse Pulse Resp BP Pulse Ox 07/05/20 11:06 36.4 C L 55 L 18 123/68 97 07/05/20 08:58 50 L 07/05/20 06:59 36.5 C 54 L 18 107/58 L 99 07/05/20 02:53 36.5 C 104 H 16 118/63 96 07/05/20 00:00 50 L
--- NOTE | 2020-07-05 20:09 | Hospitalist Progress Note ---
Date of Service July 05, 2020 Assessment & Plan (1) Atrial flutter with rapid ventricular response: Presented with atrial flutter RVR Appreciate Cardiology Input Received IV heparin, metoprolol, diltiazem, amiodarone. MEHDI guided cardioversion performed 06/27/20 with successful conversion to sinus rhythm. IV Heparin, Coumadin discontinued due to GI bleed. EGD showed duodenal ulcer and gastritis Plan to resume anticoagulation after 7 days post EGD Needs follow up with Cardiology Upon discharge Continue amiodarone, metoprolol Will consider low low-dose Eliquis--2.5mg BID if no recurrence of bleeding (2) Elevated troponin: Serum troponins 0.188 > 0.185 > 0.160. Elevated troponins probably due to tachycardia. (3) Severe left ventricular systolic dysfunction: Echo showed LVEF 20-25%. 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 No clinical signs of CHF. Continue lisinopril, metoprolol (4) Stroke-like symptom: Presented with RUE weakness and confusion. CT head and MRI brain did not show any acute findings. May need EMG as outpatient Appreciate Neurology Input (5) Acute metabolic encephalopathy: Presented with confusion at time of admission. CT head and MRI brain did not show any acute findings. Probable underlying dementia and metabolic encephalopathy secondary to hyponatremia and AWAIS. Mental status improved (6) AWAIS (acute kidney injury): Cr: 1.72 at time of admission. AWAIS likely volume depletion and/or decreased cardiac output. Received IV fluids. Resolved Monitor (7) Hyponatremia: Serum Na at time of admission was 129. ? SIADH Sodium levels improved Monitor (8) Gastrointestinal bleed: Melena S/P EGD: Cratered duodenal ulcer on posterior wall of duodenla bulb with adherent clot. Held aspirin, heparin, and warfarin. Received Vitamin K 2.5 mg x 1. Continue PPI ggt for now Appreciate GI Input Continue sucralfate Monitor H/H. Hold anticoagulation for 7 days for EGD Hold Aspirin for 3 days (9) COVID-19 ruled out: SARS-CoV-2 Ag negative on 06/23/20. SARS-CoV-2 PCR negative on 07/04/20. (10) Do not resuscitate status: As noted. (11) DVT prophylaxis: SCD's Re: GI bleed Ambulate as able. (12) Discharge planning issues: SNF as able Admission and Anticipated Discharge Date Admission Date: June 23, 2020 Subjective Patient is seen and examined at bedside States feeling better Offers no complaints Denies chest pain, dyspnea, dizziness, nausea, pain No bleeding issues today Discussed with GI today Physical Exam Physical Exam: Physical Exam: Vitals signs as noted above General Appearance:Thin, Cachectic, no apparent distress Head: normocephalic, Atraumatic Eyes: normal inspection, EOMI Neck: supple, Trachea midline Respiratory/Chest: Normal breath sounds, CTA Cardiovascular: S1, S2, No murmur Abdomen/GI:Soft, Non tender, Bowel sounds present Extremities/Musculoskelatal:normal inspection, 1+ B/L LE edema, +UE ecchymosis Neurologic/Psych: Alert, awake, Oriented to person and place. UE weakness RUE Improved Skin: normal color, warm, Left foot in dressing Results & Data Results & Data ([facility]) Vital Signs (Past 12 Hours) Vital Signs Temp Pulse Pulse Resp BP Pulse Ox 07/05/20 19:47 37.1 C 65 18 114/61 90 07/05/20 16:29 55 L 07/05/20 15:15 36.4 C L 60 18 99/58 L 90 07/05/20 11:06 36.4 C L 55 L 18 123/68 97 07/05/20 08:58 50 L
[2020-07-06] MEDS: PANTOprazole 40 MG in DEXTROSE 5% 100 ML IV SCH ×3 (00:12→10:19)
[2020-07-06 07:36] LABS: Hematocrit (blood only) 28.8 % (42-52)
[2020-07-06] MEDS: FOLIC ACID 1 MG TAB PO SCH (07:58)
[2020-07-06] MEDS: THIAMINE HCL 100 MG TAB PO SCH (07:58)
[2020-07-06] MEDS: AMIODARONE 200 MG TAB PO SCH (07:58)
[2020-07-06] MEDS: lisinopril 2.5 MG TAB PO SCH (07:58)
[2020-07-06] MEDS: METOPROLOL SUCC 50MG EXT REL TAB PO SCH (07:58)
[2020-07-06] MEDS: SUCRALFATE 1 GM/10 ML UDC PO SCH (07:59)
[2020-07-06 08:11] LABS: BUN Creatinine Ratio 12.3 (10-20); Calcium 7.8 mg/dl (8.5-10.1); Creatinine Clr Calc Pharmacy 59.9 ml/min; Est GFR (African American) 97.6; Est GFR (Non-African American) 84.2; Potassium 4.3 mmol/L (3.5-5.1)
--- NOTE | 2020-07-06 11:00 | Cardiology Progress Note ---
Date of Service July 06, 2020 Assessment & Plan (1) Atrial flutter with rapid ventricular response: (2) Severe left ventricular systolic dysfunction: (3) Tachycardia induced cardiomyopathy: (4) Gastrointestinal bleed: Patient remains in sinus rhythm/sinus bradycardia post cardioversion. Hold anticoagulation for a minimum of 7 days post EGD per gastroenterology recommendations, however, I would suggest holding anticoagulation until follow- up appointment with cardiology to determine safety of resuming medication. Consider low-dose Eliquis, 2.5 mg twice daily in future if there are no signs/symptoms of recurrent GI blood loss. Continue rhythm control strategy with amiodarone and metoprolol. Telemetry monitoring while hospitalized. Patient is stable from a cardiovascular perspective for transfer to [facility] when bed available. Admission and Anticipated Discharge Date Admission Date: June 23, 2020 Subjective Patient seen and examined the bedside. Poor historian. Denies chest pain or shortness of breath. Telemetry reveals sinus rhythm and sinus bradycardia. No recurrent atrial fibrillation. No signs/symptoms of GI blood loss. Stable hemoglobin. Patient without complaints. Awaiting placement. Review of Systems Review of Systems: Unobtainable due to cognitive status Physical Exam Constitutional: + ill appearing Respiratory: normal respiratory effort; no respiratory distress and no labored breathing Auscultation: no crackles, no rales, no rhonchi and no wheezes Cardiovascular: Rate/Rhythm: regular rhythm and + bradycardic Heart Sounds: normal S1 and normal S2 Vessels: no JVD and no carotid bruit Extremities: no edema Gastrointestinal (Abdomen): Inspection/Auscultation: abdomen normal to inspection and normal bowel sounds; abdomen not distended Percussion/Palpation: abdomen soft; abdomen nontender, no guarding and abdomen not rigid Neurologic: moves all extremities and + confused; no focal motor deficits Results & Data ([facility]) Vital Signs (Past 12 Hours) Vital Signs Temp Pulse Pulse Resp BP Pulse Ox 07/06/20 07:26 36.5 C 51 L 55 L 16 117/64 98 07/06/20 03:07 36.6 C 57 L 18 133/70 97 07/06/20 01:05 58 L 07/06/20 00:06 37 C 52 L 18 110/65 99
[2020-07-06 12:12] VITALS: TEMP 97.9
[2020-07-06 12:17] VITALS: O2SAT 97
--- NOTE | 2020-07-06 14:32 | Hospitalist Progress Note ---
Date of Service July 06, 2020 Assessment & Plan (1) Atrial flutter with rapid ventricular response: Presented with atrial flutter RVR Appreciate Cardiology Input Received IV heparin, metoprolol, diltiazem, amiodarone. MEHDI guided cardioversion performed 06/27/20 with successful conversion to sinus rhythm. IV Heparin, Coumadin discontinued due to GI bleed. EGD showed duodenal ulcer and gastritis Plan to consider to resume anticoagulation after 7 days post EGD Needs follow up with Cardiology Upon discharge Continue amiodarone, metoprolol Will consider low low-dose Eliquis--2.5mg BID if no recurrence of bleeding--As out patient after follow up with Cardiology (2) Elevated troponin: Serum troponins 0.188 > 0.185 > 0.160. Elevated troponins probably due to tachycardia. (3) Severe left ventricular systolic dysfunction: Echo showed LVEF 20-25%. 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 No clinical signs of CHF. Continue lisinopril, metoprolol (4) Stroke-like symptom: Presented with RUE weakness and confusion. CT head and MRI brain did not show any acute findings. May need EMG as outpatient Appreciate Neurology Input (5) Acute metabolic encephalopathy: Presented with confusion at time of admission. CT head and MRI brain did not show any acute findings. Probable underlying dementia and metabolic encephalopathy secondary to hyponatremia and AWAIS. Mental status improved Resolved (6) AWAIS (acute kidney injury): Cr: 1.72 at time of admission. AWAIS likely volume depletion and/or decreased cardiac output. Received IV fluids. Resolved Monitor (7) Hyponatremia: Serum Na at time of admission was 129. ? SIADH Sodium levels improved Monitor (8) Gastrointestinal bleed: Melena S/P EGD: Cratered duodenal ulcer on posterior wall of duodenla bulb with adherent clot. Held aspirin, heparin, and warfarin. Received Vitamin K 2.5 mg x 1. Continue PPI ggt for now Appreciate GI Input Continue sucralfate Monitor H/H. Hold anticoagulation for 7 days for EGD and further plan to resume after Cards follow up as outpatient Hold Aspirin for 3 days (9) COVID-19 ruled out: SARS-CoV-2 Ag negative on 06/23/20. SARS-CoV-2 PCR negative on 07/04/20. (10) Do not resuscitate status: As noted. (11) DVT prophylaxis: SCD's Re: GI bleed Ambulate as able. (12) Discharge planning issues: SNF Today Admission and Anticipated Discharge Date Admission Date: June 23, 2020 Subjective Patient is seen and examined at bedside no new complaints denies any bleeding issues discussed with GI today Denies chest pain, dyspnea, dizziness, nausea, pain Plan to discharge to SNF today Review of Systems Review of Systems: All systems reviewed & are unremarkable except as noted in HPI & below Physical Exam Physical Exam: Physical Exam: Vitals signs as noted above General Appearance:Thin, Cachectic, no apparent distress Head: normocephalic, Atraumatic Eyes: normal inspection, EOMI Neck: supple, Trachea midline Respiratory/Chest: Normal breath sounds, CTA Cardiovascular: S1, S2, No murmur Abdomen/GI:Soft, Non tender, Bowel sounds present Extremities/Musculoskelatal:normal inspection, 1+ B/L LE edema, +UE ecchymosis improved Neurologic/Psych: Alert, awake, Oriented to person and place. UE weakness RUE Improving Skin: normal color, warm, Left foot in dressing Results & Data Results & Data ([facility]) Vital Signs (Past 12 Hours) Vital Signs Temp Pulse Pulse Resp BP BP Pulse Ox 07/06/20 12:11 36.6 C 74 18 92/50 L 97 07/06/20 07:26 36.5 C 51 L 55 L 16 117/64 98 07/06/20 03:07 36.6 C 57 L 18 133/70 97 Laboratory Results Short CBC 07/06/20 Range/Units 06:58 Hgb 10.0 L (14.0-18.0) g/dL Hct 28.8 L (42-52) % BMP 07/06/20 06:58 Sodium 134 L Potassium 4.3 Chloride 99 Carbon Dioxide 31 BUN 10 Creatinine 0.79 Glucose 85 Calcium 7.8 L
[2020-07-06 14:34] VITALS: BP 117/64; PULSE 72
--- NOTE | 2020-07-06 14:59 | Discharge Summary ---
Date of Service July 06, 2020 Admission HPI Per Admitting Provider This is a 79-year-old male who has an unknown past medical history he does not follow with regular PCP who presents to ED with POA/granddaughter secondary to change in mental status and weakness for unknown duration. Patient lives alone at home ever since has been for the past 10 years. History mostly obtained from granddaughter as patient does have current underlying confusion. She typically takes patient out every 1 to 2 weeks for groceries. His last known well was 05/27. She states that recently they have been unable to get a hold of patient via phone, but was not overly alarmed as he occasionally does not answer the telephone secondary to frequent solicitor's. When unable to reach patient she did attempt to go see patient today and he would not answer the door. She went down to check his mailbox to make sure he did not slip and fall down there and found his mailbox full. She broke into the house and found him trying to get off the couch and unable to do so. He has lost a significant amount of weight since last seen and noticed groceries that they obtained on 05/27 with still not put away. He was brought to ED via EMS 2/ to change in mental status, increased weakness and inability to walk. Granddaughter unable to care for patient and feels he will likely need placed. She states she cannot remember the last time he saw and he does not take any medications. He has no known medical problems. He states he had smoked and drank alcohol in the past but denies any current tobacco/alcohol use. Typically at baseline he is able to ambulate without assist device. He currently denies any pain. ROS unreliable as patient is only alert to self. But he currently denies any pain, fever, chills, sweats, lightheadedness, dizziness, syncope, fall, chest pain, shortness with, cough, hemoptysis, nausea, vomiting, abdominal pain. He is unsure when he last ate or drink anything. He is unsure when his last bowel movement was. In ED patient was found to be in a wide-complex tachycardia with heart rates in the 160s. Initial EKG appeared to be SVT; however rhythm was resistant to adenosine 6 mg and adenosine 12 mg. He received a diltiazem bolus and started on Cardizem drip without much improvement in heart rate. He did receive 500 mL IVF. He also received Zosyn for SIRS. Lab abnormalities notable for leukocytosis 16.05k, H&H 14.6 and 43.2, sodium 129, BUN 51, creatinine 1.72, glucose 137, lactic acid 3.[address] negative for acute abnormality. Chest x-ray negative for acute abnormality. Head neck CTA reveal moderate stenosis of distal right vertebral artery. In ED he was found to have right upper extremity weakness with right pronator drift but otherwise no facial asymmetry or dysarthria. Admission Exam Per Admitting Provider Physical Exam Physical Exam: Constitutional: Thin, cachectic, male, nontoxic appearing, answers questions appropriately however confused, alert to self only, vitals as above, NAD, sitting up in bed, pleasant Head: Normocephalic, Atraumatic Eyes: PERRL, conjunctivae normal, anicteric sclerae ENMT: external ear and nose normal, oropharynx normal dry mucous membrane Neck: trachea midline, no thyromegaly normal visual inspection Respiratory: normal respiratory effort, lungs clear to auscultation, no wheeze, rales, rhonchi. Normal insp/exp effort, no accessory muscle use Cardiovascular: Tachycardic rate, regular rhythm, no murmur, no edema Vessels: no JVD or carotid bruit Chest: normal inspection of chest but emaciated Abdomen: normal bowel sounds, soft, nontender, no hepatosplenomegaly Musculoskeletal: Clubbing of fingers, right upper extremity weakness with right pronator drift, no cyanosis, left upper extremity 4/5, right upper extremity 3/5, bilateral lower extremities 4/5 Skin: no rashes, warm and dry moderate turgor Neurologic: PERRL, EOMI, accommodation nl, no face palsy, no dysarthria, no dysphagia, right pronator drift, CN's II-XI intact bilaterally, difficulty with fine motor movement of right upper extremity, right-sided ataxia Psychiatric: A+O to self only, knew we are in hospital, but thought [place], unsure where he lives, was able to orient to month and year with assistance, euthymic affect Lymphatic: no cervical or axillary lymphadenopathy : deferred Principal Diagnosis Atrial flutter with rapid ventricular response Right upper extremity weakness Acute metabolic encephalopathy Acute kidney injury Hyponatremia Melena Discharge Data Allergies Allergy/AdvReac Type Severity Reaction Status Date / Time No Known Allergies Allergy Unverified 06/23/20 13:19 Consultations 06/23/20 13:38 ED Decision to Admit Stat 06/23/20 13:41 Consult Cardiology Routine 06/23/20 15:18 Consult Neurology Routine 06/23/20 18:31 Consult Case Management - Discharge Planning Routine Consult Case Management - Discharge Planning Routine 06/26/20 10:36 Consult Anesthesiology Routine 06/27/20 10:02 Consult Case Management - Discharge Planning Routine 07/04/20 08:43 Consult Gastroenterology Routine Procedures Performed Operation Date: 06/27/20 10:00 Actual Procedures p Echo Transesophageal - Richard Katz DO s Cardioversion - Richard Katz DO Operation Date: 07/04/20 17:45 Actual Procedures p EGD Biopsy Cytology - Dilia Gonzalez MD MRI Brain: No acute intracranial abnormality is identified noting a significantly motion compromised examination. Head CTA: 1. No central vessel occlusion. 2. Dominant, patent left vertebral artery. 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 3. Exam mildly compromised by suboptimal opacification. Neck CTA: 1. No evidence of hemodynamically significant carotid stenosis 2. Dominant left vertebral artery. Distal right vertebral artery stenosis. EGD: Findings: The examined esophagus was normal. There were multiple erosions in the body and antrum of the stomach. Multiple biopsies done from throughout the body of the stomach. The pylorus was patulous. The duodenal bulb was foreshortened. There was a large cratered duodenal ulcer on the posterior duodenal wall with an adherent clot that could not be dislodged with vigorous lavage or gentle suction. There was no oozing. The second portion of the duodenum was normal. Impression: Cratered duodenal ulcer on posterior wall of duodenla bulb with adherent clot. Recommendation: - Discharge patient to floor. PPI gtt x 3 days carafate twice daily. Full liquids today. Follow Hgb twice daily and transfuse for hgb < 7. Follow up bx for Hp. Hold ASA x 3 days, anticoagulation for 5 days. Ordered Studies 06/23/20 11:16 CT head/brain wo con Stat 06/23/20 12:07 CT angio head w con Stat CT angio neck with con Stat 06/24/20 01:17 MR brain wo con Routine Hospital Course (1) Atrial flutter with rapid ventricular response: Presented with atrial flutter RVR Appreciate Cardiology Input Received IV heparin, metoprolol, diltiazem, amiodarone. MEHDI guided cardioversion performed 06/27/20 with successful conversion to sinus rhythm. IV Heparin, Coumadin discontinued due to GI bleed. EGD showed duodenal ulcer and gastritis Plan to consider to resume anticoagulation after 7 days post EGD Needs follow up with Cardiology Upon discharge Continue amiodarone, metoprolol Will consider low low-dose Eliquis--2.5mg BID if no recurrence of bleeding--As out patient after follow up with Cardiology (2) Elevated troponin: Serum troponins 0.188 > 0.185 > 0.160. Elevated troponins probably due to tachycardia. (3) Severe left ventricular systolic dysfunction: Echo showed LVEF 20-25%. 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 No clinical signs of CHF. Continue lisinopril, metoprolol (4) Stroke-like symptom: Presented with RUE weakness and confusion. CT head and MRI brain did not show any acute findings. May need EMG as outpatient Appreciate Neurology Input (5) Acute metabolic encephalopathy: Presented with confusion at time of admission. CT head and MRI brain did not show any acute findings. Probable underlying dementia and metabolic encephalopathy secondary to hyponatremia and AWAIS. Mental status improved Resolved (6) AWAIS (acute kidney injury): Cr: 1.72 at time of admission. AWAIS likely volume depletion and/or decreased cardiac output. Received IV fluids. Resolved Monitor (7) Hyponatremia: Serum Na at time of admission was 129. ? SIADH Sodium levels improved Monitor (8) Gastrointestinal bleed: Melena S/P EGD: Cratered duodenal ulcer on posterior wall of duodenla bulb with adherent clot. Held aspirin, heparin, and warfarin. Received Vitamin K 2.5 mg x 1. Continue PPI ggt for now Appreciate GI Input Continue sucralfate Monitor H/H. Hold anticoagulation for 7 days for EGD and further plan to resume after Cards follow up as outpatient Hold Aspirin for 3 days (9) COVID-19 ruled out: SARS-CoV-2 Ag negative on 06/23/20. SARS-CoV-2 PCR negative on 07/04/20. (10) Do not resuscitate status: As noted. (11) DVT prophylaxis: SCD's Re: GI bleed Ambulate as able. (12) Discharge planning issues: SNF Today Total Time Total Time Spent Total Time Spent (In Minutes): 50 minutes Total Time Includes: Examination of the Patient, Discharge Planning, Medication Reconciliation, Communication With Other Providers and Other Discharge Plan Discharge Items Patient Disposition: Transfer Longterm Fac Reason For Visit: RAPID ATRIAL FLUTTER, AWAIS, STROKE LIKE SYMPTOMS Discharge Diagnosis: Atrial flutter with rapid ventricular response Right upper extremity weakness Acute metabolic encephalopathy Acute kidney injury Hyponatremia Melena Activity: Per Instructions section Exercise/Sports: Gradually increase as tolerated Non-emergency contact: Primary Care Provider, Chimney Mechanic, Electrical Engineering Director and Neurologist Call non-emergency contact if: you have any medication questions, your symptoms worsen, your pain is not controlled, your pain is worsening, your pain is unusual for you, your pain is concerning for you and you have a fever Follow-up/Referrals: PCP,NO [Primary Care Provider] - Dietitian Info: Minced and Moist Diet: Low Fiber Addtl Attending Provider Instructions: Follow up with your primary care physician in 1 week upon discharge from rehab facility Follow-up with your cosmetology educator in 4 weeks Follow up with your Chimney Mechanic in 2 weeks Follow up with your Neurologist in 6-8 weeks as advised Start taking Protonix 40mg twice a day for 6 weeks and then once daily. Further instructions as per your cosmetology educator. Continue Carafate 1 g twice a day for 1 month. Follow-up with your tubing tester, for further consideration of anticoagulation with apixaban 2.5 mg twice a day IF no recurrence of bleeding. Start taking aspirin 81mg daily on 07/09/20 if no recurrence of bleeding. Seek immediate medical attention if your symptoms reoccur or worsen Risk Factors for Stroke: You can reduce your chances of stroke by working with your medical provider to adopt a healthy lifestyle. Some specific ways to lower your chance of stroke are: * If you are a smoker, now is the time to stop smoking cigarettes * If you are diabetic, improve the control of your blood sugars * Avoid excessive amounts of alcohol * Control high blood pressure * Lose weight if you are overweight * Be sure to lead an active lifestyle * Eat a healthy diet low in salt, cholesterol and fat You should know about other risk factors for stroke that you are unable to contr ol. These include: * Age 55 years or older * Male gender * Certain racial groups: , or / * Family History of Stroke, Mini stroke or Heart Attack * Sickle Cell Disease Follow Up: It is important for you to keep your follow up appointments with your medical provider. Who to Call and When: Medical Emergencies: Call 911 immediately if you experience any of the following warning signs and symptoms of Stroke: * Sudden numbness or weakness of the face, arm or leg, especially on one side of the body * Sudden confusion, trouble speaking or understanding * Sudden trouble seeing in one or both eyes * Sudden trouble walking, dizziness, loss of balance or coordination * Sudden severe headache with no cause Do not delay calling 911 if you experience any warning signs or symptoms of a stroke. Delay in seeking medical attention may affect what treatments can be given to you. . Pending Studies at Discharge: No Stand-Alone Forms: My [facility] Skilled Items Patient informed of condition?: Yes DNR: Yes Discharge Level of Care: Skilled Communicable Disease: No Discharge Prognosis: Improving Lines: None Urinary Catheter: No Medications and DC Order Prescriptions: New amiodarone 200 mg Tablet 200 mg PO QAM 30 Days Qty: 30 RF: 0 metoprolol succinate 50 mg Tablet Extended Release 24 Hr 50 mg PO QAM 30 Days Qty: 30 RF: 0 sucralfate 100 mg/mL Suspension 1 g PO BID 30 Days Qty: 600 RF: 0 lisinopril 2.5 mg Tablet 2.5 mg PO QAM 30 Days Qty: 30 RF: 0 pantoprazole [Protonix] 40 mg tablet,delayed release (DR/EC) 40 mg PO UD 60 Days Qty: 120 RF: 0 aspirin 81 mg tablet,delayed release (DR/EC) 81 mg PO UD Qty: 30 RF: 0 No Action No Known Home Medications RF: 0 Discharge Orders: Discharge Order (Routine); Ordered 07/06/20 Ordered By: Mike Nixon Admission Data Admit Date/Time: 06/23/20 13:41 Attending Provider: Mike Nixon Admit Provider: Varun Graham Primary Care Provider: PCP,NO Other Providers: Mike Nixon ; Bita Mosquera ; Varun Graham ; Es Esposito ; José Soliman ; Dilia Gonzalez Other Interventions: Discharge Summary Assessment (RN) Last Done: 07/06/20 14:33
--- NOTE | 2020-07-11 10:20 | Coding Query ---
To promote full compliance with coding requirements relating to patient care, provider participation is requested in all cases of irish moss gatherer uncertainty. Please assist us with the question(s) below: Coding Question(s): Sepsis was documented in the PN until 06/29 then subsequently fell off all further documentation. Please indicate if it is still a possible diagnosis or ruled out. Physician's Response(s): SEPSIS ( ) Diagnosed and POA ( ) Diagnosed and not POA ( x ) Ruled out ( ) Other (please specify) MTDD
== END 2020-07-06 15:34 | DRG 308 ==
LOC: ED 10:52 → 2S 13:41 → SUATTDRO 13:41 → 2S 17:27 → 2W 07-03 12:42

== ENCOUNTER 2024-09-02 17:21 | Inpatient (IN) ==
[2024-09-02] MEDS: ALBUT/IPRATROP 3MG/0.5MG NEB 3 ML VIAL ONE (17:35)
--- NOTE | 2024-09-02 17:47 | Emergency Department Note ---
Impression & Plan Respiratory distress, Coronavirus infection, SOB (shortness of breath), Leukocytosis ED Provider Note NAME: PHYLLIS VILLA AGE: 83 SEX: M : 1940 ARRIVES VIA: Ambulance INFORMANT: [Patient][ems] ED PROVIDER(S): [Wilber Tran MD] CHIEF COMPLAINT: Shortness of breath HISTORY OF PRESENT ILLNESS: The patient is an 83-year-old male from a [facility] care center. He states has had a few days of cough and congestion and some shortness of breath. As per EMS, he had a lot of upper congestion in the throat and center upper chest and he looked in distress. He was placed on CPAP. Upon arrival, the patient feels better, he is no longer in distress, The patient admits to a hoarse voice, he cannot recall ever being told he had COPD. The patient is a poor historian, no further history obtainable. PMHx/PSHx/Social Hx: See Below PHYSICAL EXAM: GENERAL: Patient is in no acute distress. HEENT: No acute trauma, normocephalic atraumatic, mucous membranes moist, no nasal congestion. Hoarse voice noted. No throat erythema or exudate. NECK: No stridor, no adenopathy, no meningismus, trachea is midline. LUNGS: Markedly diminished breath sounds bilaterally. No respiratory distress. No accessory muscle use. Wet cough noted. HEART: Distant heart tones but a subtle murmur was thought present. ABDOMEN: Soft, nontender, no peritonitis. EXTREMITIES: No cyanosis, full range of motion of all the joints without pain or difficulty. NEUROLOGIC: Awake and alert, no acute motor or sensory deficits, no focal weakness. SKIN: No jaundice, no diaphoresis. DIFFERENTIAL DIAGNOSIS: Bronchitis or pneumonia, influenza, COVID-19, CHF, hypoxia, CO2 retention, cardiac injury, among others. EMERGENCY DEPARTMENT PROCEDURES: MEDICAL DECISION MAKING: There is a mild leukocytosis, this could be consistent with infection or the stress of his presentation. There was a normal hemoglobin and platelet count. No coagulopathy. VBG did not show acidosis or CO2 retention. Sodium was low at 127, the patient carries a history of hyponatremia. Creatinine was mildly elevated although, the value appeared baseline. No concerning liver enzyme elevation. ECG showed a normal sinus rhythm, no dysrhythmia or acute ischemia. Cardiac enzyme testing x 1 was not consistent with acute cardiac injury. Respiratory bio fire was positive for a type of coronavirus. Chest film did not show any focal pneumonia. On exam, the patient was not in respiratory distress. He seemed comfortable. He did have diminished breath sounds bilaterally and a hoarseness to his voice. The patient was given a DuoNeb, a second DuoNeb was given. He was given IV Solu-Medrol for presumed bronchospasm. He received IV Tylenol. He was given a 500 cc saline bolus. The patient has done well, he is currently resting fairly comfortably. No further episodes of respiratory distress. Given the respiratory distress described earlier, given his exam findings and diminished breath sounds, I do think a hospital stay for further pulmonary care and observation will be warranted. I did speak with the patient and case management. The on-call hospitalist was consulted. It does appear the coronavirus infection has caused his condition. Prior/Outside records/notes reviewed: Today's EMS notes describing his presentation and transport to this hospital. ECG per my interpretation: Indication was shortness of breath. The ECG shows a normal sinus rhythm with a rate of 74. There is an old anterior infarct. There is diffuse nonspecific ST change and baseline artifact. There was no ST elevation. There were some subtle inverted T waves seen in the lateral leads. No PVCs. The QTc was 461. Continuous Cardiac Monitoring per my interpretation: An order was placed for continuous cardiac monitoring. The monitor shows a rate of 77 with normal sinus rhythm. Imaging/x-ray results per my interpretation: Chest x-ray does not show any focal pneumonia or CHF. Chronic Medical/Social conditions affecting care: Advanced age. Care/Management discussed with: Case management, the on-call hospitalist. Level of care consideration(s): After review of the information above and other included data: --I believe the patient requires escalation of care to admission DISPOSITION: Admission Past Med/Surg History Problem List (Updated 09/03/24 @ 00:03 by Wilber Tran MD) Leukocytosis (Acute) SOB (shortness of breath) (Acute) Coronavirus infection (Acute) Respiratory distress (Acute) Coronavirus infection Hypoxia Metabolic encephalopathy Encounter for examination following treatment at hospital Routine health maintenance Cough GERD (gastroesophageal reflux disease) Hypothyroid HTN (hypertension) AWAIS (acute kidney injury) (Acute) Lactic acidosis Elevated troponin (Acute) Hyponatremia Hyperglycemia Stroke-like symptom (Acute) Acute metabolic encephalopathy Severe left ventricular systolic dysfunction Elevated lactic acid level (Acute) Do not resuscitate status Gastrointestinal bleed Tachycardia induced cardiomyopathy SIRS (systemic inflammatory response syndrome) Atrial flutter with rapid ventricular response (Acute) Medical History Muscle weakness History of COVID-19 07/22/20 positive at half-way. he was asymptomatic and still no symptoms. shelter resident [facility] Surgical History History of knee surgery left Family History Denies family history of Ovarian cancer Prostate cancer Diabetes Myocardial infarction Breast cancer Colorectal cancer Hypertension Social History Smoking Status: Unknown if ever smoked Tobacco Type: Smokeless Tobacco (Dip or Chew) Second Hand Exposure: No; Do You Dip or Chew Tobacco: No; Hx Alcohol Use: No Hx Substance Use: No Preferred Language: Beninese Communication Ability: Impaired Communication Ability Comment[facility] Required: No Beliefs That Will Affect Care: None marital status: / Current Living Situation: Personal Care Facility current occupational status: retired How many Children do You have: 0 Feels Safe at Home: Yes Childhood Exposure to Second-Hand Smoke: Yes Diet: regular caffeine: Yes (coffee) Dental Care, Regularly: No Physical Activity Frequency: 1-2 Times per Week Seatbelt Use: always Sunscreen Use: No Assistive Devices: Walker Allergies Allergies Allergy/AdvReac Type Severity Reaction Status Date / Time No Known Allergies Allergy Verified 09/02/24 20:39 Home Meds Home Medications Medication Instructions Recorded Confirmed aspirin 81 mg tablet,delayed 81 mg PO DAILY 11/21/20 09/02/24 release (Adult Aspirin Regimen) aspirin 81 mg chewable tablet 81 mg PO DAILY 09/02/24 09/02/24 (Aspirin Childrens) coal tar 0.5 % shampoo 1 applic topical DAILY 09/02/24 09/02/24 Previous Rx's Medication Instructions Recorded miscellaneous medical supply #1 btl 02/15/21 metoprolol succinate 25 mg capsule 25 mg PO DAILY #90 ea 09/25/23 sprinkle, ext. release 24 hr amiodarone 100 mg tablet 100 mg PO DAILY #90 tabs 12/13/23 furosemide 20 mg tablet (Lasix) 20 mg PO DAILY #90 tabs 12/13/23 atorvastatin 10 mg tablet 10 mg PO QPM #90 tabs 02/06/24 levothyroxine 50 mcg tablet 50 mcg PO DAILY #90 tabs 02/06/24 lisinopril 2.5 mg tablet 2.5 mg PO DAILY #90 tabs 05/28/24 pantoprazole 40 mg tablet,delayed 40 mg PO DAILY #90 tabs 05/28/24 release Results & Data (ED) Vital Signs Vital Signs - 24 hr 09/02/24 17:35 09/02/24 17:37 09/02/24 17:43 Temperature Temperature Source Pulse Rate 76 Pulse Rate [Apical] 76 Respiratory Rate 16 Respiratory Effort / Characteristics Non-Labored Spontaneous Respiratory Depth Respiratory Pattern Blood Pressure Blood Pressure [Right Arm] Blood Pressure Mean Blood Pressure Mean [Right Arm] Pulse Oximetry 96 96 Oxygen Delivery Method Room Air Room Air Oxygen Flow Rate 0 Sepsis Recent Fever Within 48 Hours Sepsis New/Unexplained Change in Mental Status Sepsis Action Taken by Nursing 09/02/24 17:46 09/02/24 17:46 09/02/24 19:17 Temperature 37.5 C Temperature Source Oral Pulse Rate 76 Pulse Rate [Apical] 69 Respiratory Rate 22 18 Respiratory Effort / Characteristics Non-Labored Spontaneous Respiratory Depth Normal Respiratory Pattern Regular Blood Pressure 172/96 H Blood Pressure [Right Arm] 154/100 H Blood Pressure Mean 121 Blood Pressure Mean [Right Arm] 118 Pulse Oximetry 96 96 Oxygen Delivery Method Room Air Room Air Oxygen Flow Rate Sepsis Recent Fever Within 48 Hours Yes Sepsis New/Unexplained Change in Mental Status Yes Sepsis Action Taken by Nursing Physician Notified Home Medications Current Medication List: was personally reviewed by me Laboratory Data Attestation: I reviewed the patient's lab results. 09/02/24 17:42 09/02/24 17:42 Lab Results 09/02/24 09/02/24 09/02/24 Range/Units 17:40 17:42 17:43 WBC 12.21 H (4.8-10.8) K/ul RBC 4.72 (4.70-6.10) M/uL Hgb 14.8 (14.0-18.0) g/dl Hct 42.9 (42.0-52.0) % MCV 90.9 (80.0-100.0) fL MCH 31.4 (25.0-34.0) pg MCHC 34.5 (32.0-36.0) g/dL RDW Std Deviation 44.5 (36.4-46.3) fL RDW Coeff of Iron 13.4 (11.5-14.5) % Plt Count 184 (130-400) K/uL MPV 9.2 L (9.4-12.4) fL Immature Gran % (Auto) 0.5 % Neut % (Auto) 67.0 % Lymph % (Auto) 13.8 % Tyler % (Auto) 17.7 % Eos % (Auto) 0.7 % Baso % (Auto) 0.3 % Neut # (Auto) 8.19 H (1.40-6.50) K/uL Lymph # (Auto) 1.68 (1.20-3.40) K/uL Tyler # (Auto) 2.16 H (0.11-0.59) K/uL Eos # (Auto) 0.08 (0.00-0.50) K/uL Baso # (Auto) 0.04 (0.00-0.20) K/uL Immature Gran # (Auto) 0.06 (0.01-0.20) K/uL PT 10.9 (9.0-12.0) Seconds INR 1.0 (0.9-1.1) APTT 31 (21-31) Seconds PTT Ratio 1.2 VBG pH 7.36 (7.36-7.41) VBG pCO2 45 (38-50) mmHg VBG pO2 27 mmHg VBG HCO3 25 mmol/L VBG O2 Saturation TNP VBG Base Excess -0.4 mEq/L Sodium 127 L (136-145) mmol/L Potassium 4.8 (3.5-5.1) mmol/L Chloride 95 L (98-107) mmol/L Carbon Dioxide 26 (21-32) mmol/L Anion Gap 6 (3-11) BUN 17 (6-23) mg/dl Creatinine 1.45 H (0.6-1.4) mg/dl Est Cr Clr Drug Dosing Not Reportable eGFR 47.22 BUN/Creatinine Ratio 11.7 (10-20) Glucose 124 H (70-99(Fasting)) mg/dl Osmolality 275 L (280-300) mOsm/kg Calcium 8.9 (8.6-10.3) mg/dl Magnesium 1.9 (1.7-2.4) mg/dl Total Bilirubin 0.9 (0.2-1.0) mg/dl AST 24 (13-39) U/L ALT 16 (7-52) U/L Alkaline Phosphatase 72 (34-104) U/L Troponin I High Sens 17.9 (0-20) pg/ml Total Protein 8.0 (6.0-8.3) gm/dl Albumin 4.2 (3.4-5.0) gm/dl Globulin 3.8 (2.5-4.0) gm/dl Albumin/Globulin Ratio 1.1 (0.9-2) Adenovirus (PCR) Not Detected (NotDetected) B. pertussis DNA (PCR) Not Detected (NotDetected) B.parapertussis DNA PCR Not Detected (NotDetected) C. pneumoniae DNA (PCR) Not Detected (NotDetected) Coronavirus OC43 (PCR) Not Detected (NotDetected) Coronavirus HKU1 (PCR) Not Detected (NotDetected) Coronavirus 229E (PCR) Not Detected (NotDetected) SARS-CoV-2 (PCR) Not Detected (NotDetected) Coronavirus NL63 (PCR) DETECTED A (NotDetected) Human Metapneumovir PCR Not Detected (NotDetected) Influenza Type A (PCR) Not Detected (NotDetected) Influenza Type B (PCR) Not Detected (NotDetected) M. pneumoniae (PCR) Not Detected (NotDetected) Parainfluenza 1 (PCR) Not Detected (NotDetected) Parainfluenza 2 (PCR) Not Detected (NotDetected) Parainfluenza 3 (PCR) Not Detected (NotDetected) Parainfluenza 4 (PCR) Not Detected (NotDetected) RSV (PCR) Not Detected (NotDetected) Entero/Rhino (PCR) Not Detected (NotDetected) Administered Medications Sodium Chloride (Sodium Chloride 1 Gm Tablet) 1 gm PO BID JACQUE Stop: 10/02/24 20:59 Last Admin: 09/02/24 20:49 Dose: 1 gm Documented By: ELIOT Discontinued Medications Albuterol (Albut/Ipratrop 3mg/0.5mg Neb 3 Ml Vial) Confirm Administered Dose 3 ml .ROUTE .STK-MED ONE Stop: 09/02/24 17:31 Last Admin: 09/02/24 17:35 Dose: 3 ml Documented By: JYOTI Albuterol (Albut/Ipratrop 3mg/0.5mg Neb 3 Ml Vial) 3 ml NEB NOW STA; Protocol Stop: 09/02/24 19:44 Last Admin: 09/02/24 20:07 Dose: 3 ml Documented By: ELIOT Guaifenesin (Guaifenesin 600 Mg Tabcr) 1,200 mg PO NOW STA Stop: 09/02/24 22:10 Last Admin: 09/02/24 22:27 Dose: 1,200 mg Documented By: ELIOT Acetaminophen (Ofirmev) 1,000 mg in 100 mls @ 400 mls/hr IV NOW STA Stop: 09/02/24 17:53 Last Infusion: 09/02/24 18:17 Dose: Infused Documented By: Admin: 09/02/24 18:01 Dose: 400 mls/hr Documented By: ELIOT Sodium Chloride (Nss) 500 mls @ 999 mls/hr IV .Q31M ONE Stop: 09/02/24 18:09 Last Infusion: 09/02/24 18:37 Dose: Infused Documented By: Admin: 09/02/24 18:01 Dose: 999 mls/hr Documented By: ELIOT Sodium Chloride (Hypertonic Saline 3%) 100 mls @ 600 mls/hr IV .Q10M ONE; Protocol Stop: 09/02/24 20:39 Last Infusion: 09/02/24 20:46 Dose: Infused Documented By: ELIOT Co-signed By: BLAKE Admin: 09/02/24 20:32 Dose: 600 mls/hr Documented By: ELIOT Co-signed By: EVARISTO Magnesium Sulfate/Dextrose (Magnesium Sulfate / D5w) 1 gm in 100 mls @ 50 mls/hr IV ONE ONE Stop: 09/02/24 22:37 Last Infusion: 09/02/24 22:49 Dose: Infused Documented By: Admin: 09/02/24 20:49 Dose: 50 mls/hr Documented By: ELIOT Methylprednisolone (Methylprednisolone 125 Mg/2 Ml Vial) 60 mg IV NOW STA Stop: 09/02/24 18:31 Last Admin: 09/02/24 18:39 Dose: 60 mg Documented By: ELIOT Miscellaneous (Stop Order) 1 each N/A ONE ONE Stop: 09/02/24 20:41 Last Admin: 09/02/24 20:27 Dose: Not Given Documented By: ELIOT Sodium Chloride (Sodium Chloride 0.9% Nebu Soln 3 Ml) 3 ml NEB NOW STA Stop: 09/02/24 22:10 Last Admin: 09/02/24 22:44 Dose: 3 ml Documented By: NESS Imaging Data Radiologist's Impression: Chest X-Ray 09/02/24 17:39 EXAM: XR chest 1V portable CLINICAL HISTORY: Dyspnea TECHNIQUE: An X-ray image of the chest is obtained in AP projection. COMPARISON: prior chest X-ray dated 07/15/2023. FINDINGS: Pulmonary Parenchyma: No evidence of consolidation, collapse, or focal opacities. No pulmonary nodules are identified. Prominent bronchovascular markings with peribronchial thickening, suggesting senile or mild COPD changes. No evidence of pleural effusion or pleural thickening. Heart and Mediastinum: Heart size and shape are normal. No mediastinal widening or masses. No hilar or mediastinal lymphadenopathy. Aortic atherosclerotic calcifications. Bony Thorax: Bony thorax appears intact without fractures or deformities. Soft Tissues: Soft tissues overlying the chest wall are unremarkable. IMPRESSION: - No acute cardiopulmonary abnormalities are identified. No interval changes since the last study. - Prominent bronchovascular markings with peribronchial thickening, suggesting senile or mild COPD changes, unchanged. Electronically signed by Lew Montalvo 09-02-2024 8:[address] 09/02/24 20:26 Exam(s): CT HEAD Without Contrast EXAM: CT Head Without Intravenous Contrast CLINICAL HISTORY: Reason for exam: confusion. TECHNIQUE: Axial computed tomography images of the head/brain without intravenous contrast. CTDI is 37.22 mGy and DLP is 624.41 mGy-cm. Automated exposure control was utilized for the study. A dose lowering technique was utilized adhering to the principles of ALARA. COMPARISON: Prior brain MRI from June 25, 2020. FINDINGS: Brain: Unremarkable. No hemorrhage. Advanced nonspecific limited changes. No edema. Ventricles: Mild ventriculomegaly. Bones/joints: Unremarkable. No acute fracture. Soft tissues: Mild soft tissue swelling of the left posterior occiput. Sinuses: Unremarkable as visualized. No acute sinusitis. Mastoid air cells: Unremarkable as visualized. No mastoid effusion. IMPRESSION: No evidence of acute intracranial pathology. Electronically signed by: Sandy Herrera MD 09/02/24 23:40 PM Discharge Plan Visit Data Chief Complaint: Shortness of Breath/Dyspnea Stated Complaint: SOB, FLU LIKE SX, COUGH ED Provider: Wilber Tran Discharge Problem: Respiratory distress, Coronavirus infection, SOB (shortness of breath), Leukocytosis Patient Disposition: Admitted As Inpatient Condition: Fair Discharge Problem: Leukocytosis Qualifiers: Leukocytosis type: unspecified Qualified Code(s): D72.829 - Elevated white blood cell count, unspecified
[2024-09-02 17:55] LABS: Base Excess VBG -0.4 mEq/L; HCO3 VBG 25 mmol/L; PCO2 VBG 45 mmHg (38-50); PO2 VBG 27 mmHg; pH VBG 7.36 (7.36-7.41)
[2024-09-02] MEDS: SODIUM CHLORIDE 0.9% 500 ML IV ONE (18:01)
[2024-09-02] MEDS: ACETAMINOPHEN 1,000 MG/100 ML VIAL IV STA (18:01)
[2024-09-02 18:07] LABS: Basophils # (auto) 0.04 K/uL (0.00-0.20); Basophils % (auto) 0.3 %; Eosinophils # (auto) 0.08 K/uL (0.00-0.50); Eosinophils % (auto) 0.7 %; Hematocrit (blood only) 42.9 % (42.0-52.0); Hemoglobin 14.8 g/dl (14.0-18.0); Immature Granulocytes # (auto) 0.06 K/uL (0.01-0.20); Immature Granulocytes % (auto) 0.5 %; Lymphocytes # (auto) 1.68 K/uL (1.20-3.40); Lymphocytes % (auto) 13.8 %; Mean Corpuscular Hemoglobin 31.4 pg (25.0-34.0); Mean Corpuscular Hgb Conc 34.5 g/dL (32.0-36.0); Mean Corpuscular Volume 90.9 fL (80.0-100.0); Mean Platelet Volume 9.2 fL (9.4-12.4); Monocytes # (auto) 2.16 K/uL (0.11-0.59); Monocytes % (auto) 17.7 %; Neutrophils # (auto) 8.19 K/uL (1.40-6.50); Platelet Count 184 K/uL (130-400); RDW Coefficient of Variation 13.4 % (11.5-14.5); RDW Standard Deviation 44.5 fL (36.4-46.3); Red Blood Count 4.72 M/uL (4.70-6.10); White Blood Count 12.21 K/ul (4.8-10.8)
[2024-09-02 18:15] LABS: Alanine Aminotransferase 16 U/L (7-52); Albumin Globulin Ratio 1.1 (0.9-2); Albumin Level 4.2 gm/dl (3.4-5.0); Alkaline Phosphatase 72 U/L (34-104); Anion Gap 6 (3-11); Aspartate Aminotransferase 24 U/L (13-39); BUN Creatinine Ratio 11.7 (10-20); Bilirubin,Total 0.9 mg/dl (0.2-1.0); Blood Urea Nitrogen 17 mg/dl (6-23); Calcium 8.9 mg/dl (8.6-10.3); Carbon Dioxide 26 mmol/L (21-32); Chloride 95 mmol/L (98-107); Globulin 3.8 gm/dl (2.5-4.0); Glucose 124 mg/dl (70-99(Fasting)); Magnesium 1.9 mg/dl (1.7-2.4); Potassium 4.8 mmol/L (3.5-5.1); Sodium 127 mmol/L (136-145)
[2024-09-02 18:21] LABS: Troponin I High Sensitivity 17.9 pg/ml (0-20)
[2024-09-02 18:25] LABS: Partial Thromboplastin Ratio 1.2; Partial Thromboplastin Time 31 Seconds (21-31); Prothrombin Time 10.9 Seconds (9.0-12.0)
[2024-09-02] MEDS: methylPREDNISolone 125 MG/2 ML VIAL IV STA (18:39)
[2024-09-02 18:48] LABS: Adenovirus PCR Not Detected (NotDetected); Bordetella parapertussis PCR Not Detected (NotDetected); Bordetella pertussis PCR Not Detected (NotDetected); Chlamydia pneumoniae PCR Not Detected (NotDetected); Coronavirus 229E PCR Not Detected (NotDetected); Coronavirus CoV-2 (COVID19)PCR Not Detected (NotDetected); Coronavirus HKU1 PCR Not Detected (NotDetected); Coronavirus NL63 PCR DETECTED (NotDetected); Coronavirus OC43PCR Not Detected (NotDetected); Human Metapneumovirus PCR Not Detected (NotDetected); Influenza A PCR Not Detected (NotDetected); Influenza B PCR Not Detected (NotDetected); Mycoplasma pneumoniae PCR Not Detected (NotDetected); Parainfluenza Virus 1 PCR Not Detected (NotDetected); Parainfluenza Virus 2 PCR Not Detected (NotDetected); Parainfluenza Virus 3 PCR Not Detected (NotDetected); Parainfluenza Virus 4 PCR Not Detected (NotDetected); Respiratory Syncytial VirusPCR Not Detected (NotDetected); Rhinovirus/Enterovirus PCR Not Detected (NotDetected)
--- NOTE | 2024-09-02 20:01 | History & Physical Report ---
Date of Service September 02, 2024 Assessment & Plan (1) Hyponatremia: (2) Metabolic encephalopathy: (3) Hypoxia: (4) Coronavirus infection: Plan Patient is an 83-year-old male with past medical history of chronic hyponatremia, GERD, hypothyroidism, GI bleed, and a flutter. He presented from [place] via EMS due to respiratory distress and was placed on CPAP. CPAP was weaned to room air in ED and patient tested positive for coronavirus NL 63 and was found to be hyponatremic with a sodium of 127. On admission, he is confused and oriented to self only; which is reportedly not his baseline. #hyponatremia Patient with NA of 127 (chronically low, 130-135) cause unknown on admission as patient confused, does appear dry, suspect hypovolemia Serum osmol 275 Urine NA, Urine Osmol ordered recent TSH 09/01/24 WNL, 3.151 recent 500 mL NSS bolus in ED; defer further IVF until cause determined promote oral hydration symptomatic with confusion - 100 mL bolus 3% hypertonic saline ordered on admission start sodium chloride 1G twice daily tablets hold Lasix Trend BMP Q4 hours overnight magnesium 1.9 - will optimize with goal of 2.0, 1g IV ordered #confusion suspect 2/2 hyponatremia oriented to self only on admission; unable to obtain history granddaughter stated he is cognitively coherent and fully oriented at baseline recent TSH WNL Head CT ordered fall and aspiration precautions #coronavirus NL63/hypoxia CPAP via EMS - weaned in ED to RA, non-hypoxic on admission a febrile mild leukocytosis, 12.21 on admission - trend CBC, anticipate to remain elevated with IV steroids in ED and duo-nebs droplet precautions oxygen prn for O2 <94% incentive spirometry DC IV steroid use as can contribute to confusion Tylenol prn, Tessalon Perles, Mucinex, duo-nebs prn renal function at baseline, Cr 1.45, avoid NSAIDS and promote oral hydration Chronic stable diagnoses: HTN - continue lisinopril, hold lasix hypothyroidism - continue levothyroxine a flutter - continue amiodarone and metoprolol, not on anticoagulation GERD - continue pantoprazole VTE ppx: SCDs, hx of GI bleed (defer chemical ppx) Diet: Regular Dispo: med/tele possible dc 09/03 if sodium levels and confusion improve Update granddaughter throughout stay Admission and Anticipated Discharge Date Admission Date: 09/02/24 History of Present Illness Chief Complaint: dyspnea Primary Care Provider: MELA Clarke Patient is an 83-year-old male with past medical history of chronic hyponatremia, GERD, hypothyroidism, GI bleed, and a flutter. He presented from [place] via EMS due to respiratory distress and was placed on CPAP. CPAP was weaned to room air in ED and patient tested positive for coronavirus NL 63 and was found to be hyponatremic with a sodium of 127. On admission, he is confused and oriented to self only; which is reportedly not his baseline. Unable to obtain further history due to confusion. Spoke with patient's granddaughter Minnie, on the phone. She stated that 1 would let her know he was having difficulty breathing and coming into the hospital. She was informed of patient's condition and all questions were answer ed. She stated she would like to transport him when it is time for discharge back to [place]. She confirmed that he would like to be DNR/DNI status. She also stated that he is typically cognitively with it at baseline. He typically would know where he is and the time, which he did not know on admission. Allergies Allergy/AdvReac Type Severity Reaction Status Date / Time No Known Allergies Allergy Verified 09/02/24 20:39 Home Medications Medication Instructions Recorded Confirmed Type aspirin 81 mg tablet,delayed 81 mg PO DAILY 11/21/20 09/02/24 History release (Adult Aspirin Regimen) miscellaneous medical supply #1 btl 02/15/21 09/02/24 Rx metoprolol succinate 25 mg capsule 25 mg PO DAILY #90 ea 09/25/23 09/02/24 Rx sprinkle, ext. release 24 hr amiodarone 100 mg tablet 100 mg PO DAILY #90 tabs 12/13/23 09/02/24 Rx furosemide 20 mg tablet (Lasix) 20 mg PO DAILY #90 tabs 12/13/23 09/02/24 Rx atorvastatin 10 mg tablet 10 mg PO QPM #90 tabs 02/06/24 09/02/24 Rx levothyroxine 50 mcg tablet 50 mcg PO DAILY #90 tabs 02/06/24 09/02/24 Rx lisinopril 2.5 mg tablet 2.5 mg PO DAILY #90 tabs 05/28/24 09/02/24 Rx pantoprazole 40 mg tablet,delayed 40 mg PO DAILY #90 tabs 05/28/24 09/02/24 Rx release aspirin 81 mg chewable tablet 81 mg PO DAILY 09/02/24 09/02/24 History (Aspirin Children[facility]) coal tar 0.5 % shampoo 1 applic topical DAILY 09/02/24 09/02/24 History Past Med/Surg History Problem List (Updated 09/03/24 @ 00:03 by Wilber Tran MD) Leukocytosis (Acute) SOB (shortness of breath) (Acute) Coronavirus infection (Acute) Respiratory distress (Acute) Coronavirus infection Hypoxia Metabolic encephalopathy Encounter for examination following treatment at hospital Routine health maintenance Cough GERD (gastroesophageal reflux disease) Hypothyroid HTN (hypertension) AWAIS (acute kidney injury) (Acute) Lactic acidosis Elevated troponin (Acute) Hyponatremia Hyperglycemia Stroke-like symptom (Acute) Acute metabolic encephalopathy Severe left ventricular systolic dysfunction Elevated lactic acid level (Acute) Do not resuscitate status Gastrointestinal bleed Tachycardia induced cardiomyopathy SIRS (systemic inflammatory response syndrome) Atrial flutter with rapid ventricular response (Acute) Medical History Muscle weakness History of COVID-19 07/22/20 positive at [facility]. he was asymptomatic and still no symptoms. senior living resident [facility] Surgical History History of knee surgery left Family History Denies family history of Ovarian cancer Prostate cancer Diabetes Myocardial infarction Breast cancer Colorectal cancer Hypertension Social History Smoking Status: Unknown if ever smoked Tobacco Type: Smokeless Tobacco (Dip or Chew) Second Hand Exposure: No; Do You Dip or Chew Tobacco: No; Hx Alcohol Use: No Hx Substance Use: No Preferred Language: Tajik Communication Ability: Impaired Communication Ability Comment: [facility] Required: No Beliefs That Will Affect Care: None marital status: / Current Living Situation: Long-Term Current Living Situation Comment: [place] current occupational status: retired How many Children do You have: 0 Other Information That Helps Us Care for You: No Feels Safe at Home: Yes Safety Concerns: Feels Safe At This Time Childhood Exposure to Second-Hand Smoke: Yes Diet: regular caffeine: Yes (coffee) Dental Care, Regularly: No Physical Activity Frequency: 1-2 Times per Week Seatbelt Use: always Sunscreen Use: No Assistive Devices: Walker Review of Systems Review of Systems: unable to obtain due to confusion Physical Exam Physical Exam: The patient is confused, oriented to self only, in no acute distress. Non-toxic appearing. HEENT- EOMI, mucous membranes dry Hearing grossly intact. Heart-normal S1 and S2. No murmurs, rubs or gallops. Lungs-decreased bilaterally, no respiratory distress, no accessory muscle use. Abdomen-normal bowel sounds and soft. No ascites noted. Non-tender. Extremities- no clubbing, cyanosis, or edema. Results & Data Results & Data Vital Signs (Past 12 Hours) Vital Signs Temp Pulse Pulse Resp BP BP Pulse Ox 09/02/24 19:17 69 18 154/100 H 96 09/02/24 17:46 37.5 C 76 22 172/96 H 96 09/02/24 17:43 96 09/02/24 17:37 76 09/02/24 17:35 76 16 96 O2 Del Method O2 Flow Rate 09/02/24 19:17 Room Air 09/02/24 17:46 Room Air 09/02/24 17:43 Room Air 0 09/02/24 17:37 09/02/24 17:35 Room Air Laboratory Results Reviewed CBC, PT/INR, VBG, CMP, bio fire, troponin, mag Diagnostic Findings reviewed CXR head CT ordered Medications Administered EMS - duoneb x1 ED - solu-medrol 60mg IV, 500 ml NSS bolus, tylenol 1g IV, duoneb x2 ECG Additional Comments: NSR however much artifact Code Status & VTE Plan Code Status dnr/dni VTE Prophylaxis Plan VTE Prophylaxis will be ordered: Yes Supervising Physician Co-Signing Physician Notes Attending addendum: I have physically seen this patient, have supervised the ENRIKE's activities, and agree with the H&P unless as otherwise noted. Assessment and Plan: The patient is an 83-year-old male with past medical history including chronic hyponatremia GERD, hypothyroidism, GI bleed, and atrial flutter. He presented from [facility] via EMS due to respiratory distress and was placed on CPAP. CPAP was weaned to room air while in the ED. Respiratory BioFire testing in ED was positive for coronavirus NL 63. Sodium was found to be low 127. Patient on presentation was confused, oriented to self only, and was referred for evaluation to [facility] service for admission and evaluation. #Hyponatremia- Sodium 127, with typical range 1 30-1 35 Serum osmolality 275. Urine sodium and urine osmolality ordered and pending Status post 500 mL normal saline bolus from the ED Will give 100 mL 3% hypertonic saline now Placed on sodium chloride 1 g p.o. twice daily Holding Lasix Trend BMP every 4 hours overnight Hypomagnesemia-magnesium 1.9 on admission Give 1 g IV recheck laboratories in a.m. Confusion-: Multifactorial Secondary hyponatremia, and coronavirus NL [address] scan head ordered and pending Fall and aspiration precautions CPAP initially via EMS, weaned to room air in the ED Supportive treatment with incentive spirometry ED received the following: DuoNeb, Tylenol 1 g IV, Solu-Medrol 60 mg IV, and second DuoNeb DuoNebs every 2 hours as needed Nasal cannula oxygen, titrate to keep pulse ox around 94% Chronic medical conditions: Hypertension-holding lisinopril and Lasix Hypothyroidism-continue levothyroxine Atrial flutter-continue amiodarone and metoprolol GERD-continue pantoprazole PG Care Time/CCT Total # of Minutes Spent Total Time Spent with Patient: Total time spent is greater than 50% in coordination of care (as documented) at patient's floor/unit and/or counseling patient: Coding Level of Care Code 25374 INT INP/OBS CARE 3/75MIN Diagnoses Hyponatremia E87.1 Metabolic encephalopathy G93.41 Hypoxia R09.02 Coronavirus infection B34.2
[2024-09-02] MEDS: ALBUT/IPRATROP 3MG/0.5MG NEB 3 ML VIAL NEB STA (20:07)
--- NOTE | 2024-09-02 20:07 | XRay Report ---
EXAM: XR chest 1V portable CLINICAL HISTORY: Dyspnea TECHNIQUE: An X-ray image of the chest is obtained in AP projection. COMPARISON: prior chest X-ray dated 07/15/2023. FINDINGS: Pulmonary Parenchyma: No evidence of consolidation, collapse, or focal opacities. No pulmonary nodules are identified. Prominent bronchovascular markings with peribronchial thickening, suggesting senile or mild COPD changes. No evidence of pleural effusion or pleural thickening. Heart and Mediastinum: Heart size and shape are normal. No mediastinal widening or masses. No hilar or mediastinal lymphadenopathy. Aortic atherosclerotic calcifications. Bony Thorax: Bony thorax appears intact without fractures or deformities. Soft Tissues: Soft tissues overlying the chest wall are unremarkable. IMPRESSION: - No acute cardiopulmonary abnormalities are identified. No interval changes since the last study. - Prominent bronchovascular markings with peribronchial thickening, suggesting senile or mild COPD changes, unchanged. Electronically signed by Lew Montalvo 09-02-2024 8:07 PM
[2024-09-02] MEDS ORDERED: STAT IV/IM STA (20:23)
[2024-09-02] MEDS: SODIUM CHLORIDE 3 % 100 ML IV ONE (20:32)
[2024-09-02] MEDS: SODIUM CHLORIDE 1 GM TABLET PO SCH (20:49)
[2024-09-02] MEDS: MAGNESIUM SULFATE / D5W 1 GM/100 ML BAG IV ONE (20:49)
[2024-09-02] MEDS ORDERED: ALBUT/IPRATROP 3MG/0.5MG NEB 3 ML VIAL NEB PRN (22:11)
[2024-09-02] MEDS: guaiFENesin 600 MG TABCR PO STA (22:27)
[2024-09-02] MEDS: SODIUM CHLORIDE 0.9% NEBU SOLN 3 ML NEB STA (22:44)
--- NOTE | 2024-09-02 23:41 | CT Scan Report ---
Exam(s): CT HEAD Without Contrast EXAM: CT Head Without Intravenous Contrast CLINICAL HISTORY: Reason for exam: confusion. TECHNIQUE: Axial computed tomography images of the head/brain without intravenous contrast. CTDI is 37.22 mGy and DLP is 624.41 mGy-cm. Automated exposure control was utilized for the study. A dose lowering technique was utilized adhering to the principles of ALARA. COMPARISON: Prior brain MRI from June 25, 2020. FINDINGS: Brain: Unremarkable. No hemorrhage. Advanced nonspecific limited changes. No edema. Ventricles: Mild ventriculomegaly. Bones/joints: Unremarkable. No acute fracture. Soft tissues: Mild soft tissue swelling of the left posterior occiput. Sinuses: Unremarkable as visualized. No acute sinusitis. Mastoid air cells: Unremarkable as visualized. No mastoid effusion. IMPRESSION: No evidence of acute intracranial pathology. Electronically signed by: Sandy Herrera MD 09/02/24 23:40 PM
[2024-09-03] MEDS ORDERED: ACETAMINOPHEN 325 MG TAB PO PRN (01:01)
[2024-09-03] MEDS ORDERED: MELATONIN 3 MG TAB PO PRN (01:01)
[2024-09-03] MEDS ORDERED: ONDANSETRON INJ 2 MG/ML 2 ML VIAL IV PRN (01:01)
[2024-09-03] MEDS ORDERED: DOCUSATE SODIUM 100 MG CAP PO PRN (01:01)
[2024-09-03 02:58] LABS: Anion Gap 7 (3-11); BUN Creatinine Ratio 11.2 (10-20); Blood Urea Nitrogen 15 mg/dl (6-23); Calcium 9.1 mg/dl (8.6-10.3); Carbon Dioxide 23 mmol/L (21-32); Chloride 99 mmol/L (98-107); Glucose 182 mg/dl (70-99(Fasting)); Potassium 4.9 mmol/L (3.5-5.1); Sodium 129 mmol/L (136-145)
[2024-09-03] MEDS: ATORVASTATIN 10 MG TAB PO SCH (02:59)
[2024-09-03 03:32] LABS: Appearance Urine Clear (Clear); Bacteria Urine Automated None Seen (None Seen); Bilirubin Urine Negative (Negative); Blood Urine 2+ (Negative); Cast Urine Automated 0-2 /lpf (0-2); Color Urine Yellow; Epithelial Cell Urine Auto 0-2 /hpf (0-2); Glucose Urine UA Trace (Negative); Ketones Urine Trace (Negative); Leukocyte Esterase Urine Negative (Negative); Nitrite Urine Negative (Negative); Protein Urine Trace (Negative); Specific Gravity Urine 1.019 (1.000-1.030); Urobilinogen Urine Negative (Negative); WBC Urine Automated 0-5 /hpf (0-5); pH Urine 5.5 (4.5-7.5)
[2024-09-03] MEDS: LEVOTHYROXINE SODIUM 50 MCG TABLET PO SCH (06:03)
[2024-09-03 06:19] LABS: Eosinophils # (auto) 0.01 K/uL (0.00-0.50); Eosinophils % (auto) 0.1 %; Hematocrit (blood only) 39.9 % (42.0-52.0); Hemoglobin 13.8 g/dl (14.0-18.0); Immature Granulocytes # (auto) 0.07 K/uL (0.01-0.20); Immature Granulocytes % (auto) 0.6 %; Lymphocytes # (auto) 1.08 K/uL (1.20-3.40); Lymphocytes % (auto) 9.2 %; Mean Corpuscular Hemoglobin 31.1 pg (25.0-34.0); Mean Corpuscular Hgb Conc 34.6 g/dL (32.0-36.0); Mean Corpuscular Volume 89.9 fL (80.0-100.0); Mean Platelet Volume 9.3 fL (9.4-12.4); Monocytes # (auto) 0.39 K/uL (0.11-0.59); Monocytes % (auto) 3.3 %; Neutrophils # (auto) 10.17 K/uL (1.40-6.50); Neutrophils % (auto) 86.8 %; Platelet Count 185 K/uL (130-400); RDW Coefficient of Variation 13.3 % (11.5-14.5); RDW Standard Deviation 43.9 fL (36.4-46.3); Red Blood Count 4.44 M/uL (4.70-6.10); White Blood Count 11.72 K/ul (4.8-10.8)
[2024-09-03 06:23] LABS: Anion Gap 7 (3-11); BUN Creatinine Ratio 12.3 (10-20); Blood Urea Nitrogen 15 mg/dl (6-23); Calcium 8.5 mg/dl (8.6-10.3); Carbon Dioxide 22 mmol/L (21-32); Chloride 100 mmol/L (98-107); Glucose 174 mg/dl (70-99(Fasting)); Magnesium 2.2 mg/dl (1.7-2.4); Potassium 4.8 mmol/L (3.5-5.1); Sodium 129 mmol/L (136-145)
[2024-09-03 09:35] LABS: Anion Gap 9 (3-11); BUN Creatinine Ratio 12.7 (10-20); Blood Urea Nitrogen 16 mg/dl (6-23); Calcium 8.7 mg/dl (8.6-10.3); Carbon Dioxide 20 mmol/L (21-32); Chloride 100 mmol/L (98-107); Glucose 163 mg/dl (70-99(Fasting)); Potassium 4.7 mmol/L (3.5-5.1); Sodium 129 mmol/L (136-145)
[2024-09-03] MEDS: guaiFENesin 600 MG TABCR PO SCH (09:35)
[2024-09-03] MEDS: ASPIRIN 81 MG ECTAB PO SCH (09:37)
[2024-09-03] MEDS: lisinopril 2.5 MG TAB PO SCH (09:37)
[2024-09-03] MEDS: AMIODARONE 200 MG TAB PO SCH (09:38)
[2024-09-03] MEDS: BENZONATATE 100 MG CAPSULE PO SCH (09:38)
[2024-09-03] MEDS: METOPROLOL SUCC 25MG EXT REL TAB PO SCH (09:39)
[2024-09-03] MEDS: PANTOprazole 40 MG TAB PO SCH (09:39)
[2024-09-03 13:46] LABS: Anion Gap 8 (3-11); BUN Creatinine Ratio 14.5 (10-20); Blood Urea Nitrogen 19 mg/dl (6-23); Calcium 9.5 mg/dl (8.6-10.3); Carbon Dioxide 23 mmol/L (21-32); Chloride 99 mmol/L (98-107); Glucose 121 mg/dl (70-99(Fasting)); Potassium 4.7 mmol/L (3.5-5.1); Sodium 130 mmol/L (136-145)
--- NOTE | 2024-09-03 15:40 | Hospitalist Progress Note ---
Date of Service September 03, 2024 Assessment & Plan (1) Hyponatremia: (2) Metabolic encephalopathy: (3) Hypoxia: (4) Coronavirus infection: Plan Patient is an 83-year-old male with past medical history of chronic hyponatremia, GERD, hypothyroidism, GI bleed, and a flutter. He presented from [place] via EMS due to respiratory distress and was placed on CPAP. CPAP was weaned to room air in ED and patient tested positive for coronavirus NL 63 and was found to be hyponatremic with a sodium of 127. #Coronavirus NL63/hypoxia CPAP via EMS - weaned in ED to RA,received 1 dose of IV steroids, remains stable on room air Supportive care: IS, Mucinex, Tessalon, duo nebs prn PT/OT #Hyponatremia Patient with NA of 127 on admission, baseline 130-135 Received 100ml hypertonic saline and salt tabs. Suspect related to hypovolemia and viral illness - lasix held Low AM cortisol but pt received steroids prior Na rising on serial BMPs AM BMP #confusion Pleasant and oriented to self - [facility] reports this is is his baseline, however granddaughter reports normally he is fully oriented recent TSH WNL. Head CT without acute findings. #HTN - continue lisinopril, hold lasix #hypothyroidism -TSH normal at 3.1, continue levothyroxine #a flutter - he is in NSR here- continue amiodarone and metoprolol, not on anticoagulation (hx of GI bleed) #GERD - continue pantoprazole DVT ppx: SCDs Dispo: continued inpatient stay, awaiting PT /OT bill for granddaughter 09/03 Admission and Anticipated Discharge Date Admission Date: September 02, 2024 Supervising Physician Co-Signing Physician Notes PA Supervision Note: I did not personally see or examine the patient today, but I verified all schultz points of TANIA Callejas's assessment and plan with the following exceptions/additions: None Subjective patient seen sitting on the side of the bed. Reports that he is feeling well, he is unsure why he came to the hospital, states that the doctor told him to He denies cough Reports good appetite Is oriented to himself but is able to recall his granddaughters name Telemetry sinus rhythm Review of Systems Review of Systems: All systems reviewed & are unremarkable except as noted in Subjective Physical Exam Physical Exam: General: NAD, VS as above Resp: normal respiratory effort, diminished in the bases, on room air CV: RRR, no murmur, Abd: normal bowel sounds, non tender, no hepatosplenomegaly Extremities: Moves all extremities, no edema Neuro: A&O x1, Skin: intact, no lesions noted Results & Data Results & Data Vital Signs (Past 12 Hours) Vital Signs Temp Pulse Pulse Pulse Resp BP Pulse Ox 09/03/24 14:38 79 09/03/24 13:27 97.5 F L 73 18 162/70 H 98 09/03/24 07:30 88 09/03/24 05:09 09/03/24 05:05 98.6 F 88 18 146/89 H 97 O2 Del Method O2 Flow Rate 09/03/24 14:38 09/03/24 13:27 Room Air 09/03/24 07:30 09/03/24 05:09 Nasal Cannula 3 09/03/24 05:05 Nasal Cannula 3 Laboratory Results CBC and chemistry reviewed Urinalysis reviewed Diagnostic Findings CT head reviewed PG Care Time/CCT Total # of Minutes Spent Total Time Spent with Patient: Total time spent is greater than 50% in coordination of care (as documented) at patient's floor/unit and/or counseling patient: Coding Level of Care Code 10408 SUB INP/OBS CARE 3/50MIN Diagnoses Hyponatremia E87.1 Metabolic encephalopathy G93.41 Hypoxia R09.02 Coronavirus infection B34.2
--- NOTE | 2024-09-03 22:00 | Electrocardiogram Report ---
Test Reason : Blood Pressure : */* mmHG Vent. Rate : 74 BPM Atrial Rate : 74 BPM P-R Int : 178 ms QRS Dur : 94 ms QT Int : 424 ms P-R-T Axes : * 2 95 degrees QTcB Int : 471 ms Normal sinus rhythm Anterior infarct Abnormal ECG When compared with ECG of 15-Jul-2023 09:27, T wave inversion no longer evident in Lateral leads Confirmed by Amarjit Thurman ([id number]) on 09/03/2024 10:00:26 PM Referred By: Mariam Walker Confirmed By: Amarjit Thurman
[2024-09-04 03:40] VITALS: BP 136/70; RESP 20; TEMP 97.9; O2SAT 96
[2024-09-04 06:50] LABS: Anion Gap 4 (3-11); Blood Urea Nitrogen 23 mg/dl (6-23); Calcium 8.3 mg/dl (8.6-10.3); Carbon Dioxide 28 mmol/L (21-32); Chloride 99 mmol/L (98-107); Glucose 106 mg/dl (70-99(Fasting)); Potassium 4.6 mmol/L (3.5-5.1); Sodium 131 mmol/L (136-145)
--- NOTE | 2024-09-04 10:03 | Discharge Summary ---
Discharge Summary Date of Service September 04, 2024 Principal Dx & Hospital Course #1 = Principal Diagnosis (1) Hyponatremia: (2) Metabolic encephalopathy: (3) Hypoxia: (4) Coronavirus infection: Plan #Coronavirus NL63/hypoxia Patient is an 83-year-old male with past medical history of chronic hyponatremia, GERD, hypothyroidism, GI bleed, and a flutter. He presented from [place] via EMS due to respiratory distress and was placed on CPAP, unclear if he was actually hypoxic. Initial workup positive for coronavirus NL 63 and was found to be hyponatremic with a sodium of 127. CXR without PNA. Maintained on r oom air, evaluated by PT who agrees return to [facility]. Continue mucinex and IS at discharge. #Hyponatremia Patient with NA of 127 on admission, baseline 130-135 Received 100ml hypertonic saline and salt tabs. Suspect related to hypovolemia and viral illness - lasix held, plan to resume 3/3. Low AM cortisol but pt recieved steroids prior. Na returned to baseline #confusion Pleasant and oriented to self - [facility] reports this is is his baseline, however granddaughter reports normally he is fully oriented recent TSH WNL. Head CT without acute findings. HTN - continue lisinopril, hold lasix - resume 3/3 hypothyroidism - continue levothyroxine a flutter - continue amiodarone and metoprolol, not on anticoagulation (hx of GI bleed) GERD - continue pantoprazole Dispo: discharge back to [facility] Granddaughter updated by phone 09/04 Notes For Next Care Provider Medication Changes From Visit resume lasix 3/3 continue scheduled mucinex for 3 days Admission HPI Per Admitting Provider Patient is an 83-year-old male with past medical history of chronic hyponatremia, GERD, hypothyroidism, GI bleed, and a flutter. He presented from [place] via EMS due to respiratory distress and was placed on CPAP. CPAP was weaned to room air in ED and patient tested positive for coronavirus NL 63 and was found to be hyponatremic with a sodium of 127. On admission, he is confused and oriented to self only; which is reportedly not his baseline. Unable to obtain further history due to confusion. Spoke with patient's granddaughter Minnie, on the phone. She stated that 1 would let her know he was having difficulty breathing and coming into the hospital. She was informed of patient's condition and all questions were answered. She stated she would like to transport him when it is time for discharge back to [place]. She confirmed that he would like to be DNR/DNI status. She also stated that he is typically cognitively with it at baseline. He typically would know where he is and the time, which he did not know on admission. Discharge Exam General: NAD, VS as above, sitting up in the chair Resp: normal respiratory effort, lungs clear to auscultation CV: RRR, no murmur, Abd: normal bowel sounds, non tender, no hepatosplenomegaly Extremities: Moves all extremities, trace nonpitting LE edema Neuro: A&O x2, Discharge Plan Discharge Items Patient Disposition: [facility] Reason For Visit: HYPONATREMIA, HYPOXIA, CONFUSION Discharge Diagnosis: Non-COVID Coronavirus Condition on Discharge: Fair Activity: Resume your previous activity Non-emergency contact: Primary Care Provider Call non-emergency contact if: you have any medication questions, your pain is not controlled and your temperature is above 101 Follow-up/Referrals: Mariam Walker CRNP [Primary Care Provider] - (Follow up within one week ) Diet: Regular Addtl Attending Provider Instructions: Mr. Paredes, You were hospitalized after having increased work of breathing at home. You were found to have a non-covid coronavirus that is basically a common cold. You have done well and not requiring oxygen. PT agreed that you are safe to return home. Recommendations: * Continue Mucinex for the next 3 days * Resume lasix on Moday 3/3 Activity: You can do normal everyday activities as your body allows. Take rest breaks if you feel tired. Do not overexert. Stop activity if you have pain, shortness of breath or feel dizzy. Follow-up appointments: Make an appointment with your primary care physician within one week of discharge. A copy of this summary will be sent to them. Every time you see your primary care physician, or any other doctor, bring your medication list, and a list of questions. CONTACT YOUR PRIMARY CARE PROVIDER if you experience any of the following: Shortness of breath or difficulty breathing Fevers or chills Feeling tired with normal activity or experiencing dizziness or fainting Difficulty following your treatment plan, or difficulty taking medications CALL 911 OR GO TO THE EMERGENCY DEPARTMENT if you experience any of the following: Severe abdominal pain or nausea/vomiting Severe chest pain, or chest pain that radiates (moves) to your jaw or arm Sudden, severe shortness of breath or difficulty breathing Thank you for allowing us to participate in your care. Pending Studies at Discharge: No Stand-Alone Forms: My [employer], Smoking Cessation Skilled Items Patient informed of condition?: Yes DNR: Yes Discharge Level of Care: Other Communicable Disease: No Discharge Prognosis: Stable Lines: None Urinary Catheter: No Medications and DC Order Prescriptions: New guaifenesin [Mucinex] 600 mg Tablet Extended Release 12hr 1,200 mg PO Q12 3 Days Qty: 12 0RF Continued (DME) miscellaneous medical supply Liquid See Rx Instructions .Route Qty: 1 0RF Rx Instructions: T-gel shampoo: 1 tablespoon to scalp, lather well, and rinse. Use once a day metoprolol succinate 25 mg capsule,sprinkle,ER 24hr 25 mg PO DAILY Qty: 90 1RF amiodarone 100 mg tablet 100 mg PO DAILY Qty: 90 1RF atorvastatin 10 mg tablet 10 mg PO QPM Qty: 90 1RF levothyroxine 50 mcg tablet 50 mcg PO DAILY Qty: 90 1RF pantoprazole 40 mg tablet,delayed release (DR/EC) 40 mg PO DAILY Qty: 90 1RF lisinopril 2.5 mg tablet 2.5 mg PO DAILY Qty: 90 1RF aspirin [Adult Aspirin Regimen] 81 mg tablet,delayed release (DR/EC) 81 mg PO DAILY coal tar 0.5 % Shampoo 1 applic TOPICAL DAILY Rx Instructions: [facility] Held furosemide [Lasix] 20 mg tablet 20 mg PO DAILY Qty: 90 1RF Hold Instructions: Resume on 08/10/24. Discontinued aspirin [Aspirin Childrens] 81 mg Tablet,Chewable 81 mg PO DAILY Discharge Orders: Discharge Order (Routine); Ordered 09/04/24 Ordered By: Ashli Callejas Admission Data Admit Date/Time: 09/02/24 20:38 Attending Provider: Constanza Lizama Admit Provider: Fabrizio Harris Primary Care Provider: Mariam Walker Other Providers: Fabrizio Harris Other Interventions: Discharge Summary Assessment (RN) Last Done: 09/04/24 11:33 Hospital Stay Data Consultations 09/02/24 19:57 ED Decision to Admit Stat Diagnostic Imagining Performed Chest X-Ray 09/02/24 17:39 EXAM: XR chest 1V portable CLINICAL HISTORY: Dyspnea TECHNIQUE: An X-ray image of the chest is obtained in AP projection. COMPARISON: prior chest X-ray dated 07/15/2023. FINDINGS: Pulmonary Parenchyma: No evidence of consolidation, collapse, or focal opacities. No pulmonary nodules are identified. Prominent bronchovascular markings with peribronchial thickening, suggesting senile or mild COPD changes. No evidence of pleural effusion or pleural thickening. Heart and Mediastinum: Heart size and shape are normal. No mediastinal widening or masses. No hilar or mediastinal lymphadenopathy. Aortic atherosclerotic calcifications. Bony Thorax: Bony thorax appears intact without fractures or deformities. Soft Tissues: Soft tissues overlying the chest wall are unremarkable. IMPRESSION: - No acute cardiopulmonary abnormalities are identified. No interval changes since the last study. - Prominent bronchovascular markings with peribronchial thickening, suggesting senile or mild COPD changes, unchanged. Electronically signed by Lew Montalvo 09-02-2024 8:[address] 09/02/24 20:26 Exam(s): CT HEAD Without Contrast EXAM: CT Head Without Intravenous Contrast CLINICAL HISTORY: Reason for exam: confusion. TECHNIQUE: Axial computed tomography images of the head/brain without intravenous contrast. CTDI is 37.22 mGy and DLP is 624.41 mGy-cm. Automated exposure control was utilized for the study. A dose lowering technique was utilized adhering to the principles of ALARA. COMPARISON: Prior brain MRI from June 25, 2020. FINDINGS: Brain: Unremarkable. No hemorrhage. Advanced nonspecific limited changes. No edema. Ventricles: Mild ventriculomegaly. Bones/joints: Unremarkable. No acute fracture. Soft tissues: Mild soft tissue swelling of the left posterior occiput. Sinuses: Unremarkable as visualized. No acute sinusitis. Mastoid air cells: Unremarkable as visualized. No mastoid effusion. IMPRESSION: No evidence of acute intracranial pathology. Electronically signed by: Sandy Herrera MD 09/02/24 23:40 PM Pending Results Patient Have Any Pending Studies at Discharge: No Discharge Instructions Given to Patient (Per Discharging Provider) Mr. Paredes, You were hospitalized after having increased work of breathing at home. You were found to have a non-covid coronavirus that is basically a common cold. You have done well and not requiring oxygen. PT agreed that you are safe to return home. Recommendations: * Continue Mucinex for the next 3 days * Resume lasix on Moday 3/3 Activity: You can do normal everyday activities as your body allows. Take rest breaks if you feel tired. Do not overexert. Stop activity if you have pain, shortness of breath or feel dizzy. Follow-up appointments: Make an appointment with your primary care physician within one week of discharge. A copy of this summary will be sent to them. Every time you see your primary care physician, or any other doctor, bring your medication list, and a list of questions. CONTACT YOUR PRIMARY CARE PROVIDER if you experience any of the following: Shortness of breath or difficulty breathing Fevers or chills Feeling tired with normal activity or experiencing dizziness or fainting Difficulty following your treatment plan, or difficulty taking medications CALL 911 OR GO TO THE EMERGENCY DEPARTMENT if you experience any of the following: Severe abdominal pain or nausea/vomiting Severe chest pain, or chest pain that radiates (moves) to your jaw or arm Sudden, severe shortness of breath or difficulty breathing Thank you for allowing us to participate in your care. Supervising Physician Co-Signing Physician Notes PA Supervision Note: I did not personally see or examine the patient today, but I verified all schultz points of TANIA Callejas's assessment and plan with the following exceptions/additions: None Total Time Total Time Spent Total Time Spent (In Minutes): Time spent day of discharge 38 minutes including direct patient care, medication reconciliation, documentation, review of labs and images, and coordination of care. Discussed with CM Coding Level of Care Code 87265 INP/OBS DISCH >30 MIN Diagnoses Hyponatremia E87.1 Metabolic encephalopathy G93.41 Hypoxia R09.02 Coronavirus infection B34.2
[2024-09-04 11:36] VITALS: PULSE 88
== END 2024-09-04 11:57 | disposition home or self-care (01) | DRG 865 ==
LOC: ED 17:21 → EDINP 20:38 → SUATTDRO 20:38 → 2N 09-03 01:03